=== PATIENT | male | born 1945 | race African-American/Black ===

== ENCOUNTER 2018-11-27 15:25 | Inpatient (IN) | payer OTHER ==
--- NOTE | 2018-11-27 15:41 | PDOC ---
Rapid Medical Evaluation Time Seen by Provider: 11/27/18 15:35 Medical Evaluation: Allergies Allergy/AdvReac Type Severity Reaction Status Date / Time Penicillins Allergy Intermediate Rash Verified 11/06/17 18:00 11/27/18 15:38 I have performed a brief in-person evaluation of this patient. The patient presents with a chief complaint of: swelling and pain to right lower leg Pertinent physical exam findings: hot / red/ swollen left lower extremity I have ordered the following: US- right lower leg The patient will proceed to the ED for further evaluation
[2018-11-27 18:20] LABS: BASO % 0.3 % (0-2.0); EOS % 0.1 % (0-4.5); HEMATOCRIT 34.6 % (35.4-49); HEMOGLOBIN 11.6 GM/dL (11.7-16.9); LYMPH % 13.3 % (8-40); MCH 30.7 pg (25.7-33.7); MCHC 33.6 g/dl (32.0-35.9); MEAN CELL VOLUME 91.4 fl (80-96); MEAN PLT VOLUME 10.2 fl (7.5-11.1); MONO % 6.5 % (3.8-10.2); NEUT % 79.8 % (42.8-82.8); PLATELET COUNT 179 K/MM3 (134-434); RBC 3.79 M/mm3 (4.00-5.60); WHITE BLOOD COUNT 10.4 K/mm3 (4.0-10.0)
[2018-11-27 18:42] LABS: ALBUMIN 3.5 g/dl (3.4-5.0); BILIRUBIN,TOTAL 0.5 mg/dL (0.2-1); BLOOD UREA NITROGEN 38.2 mg/dL (7-18); CALCIUM 8.5 mg/dL (8.5-10.1); CREATININE 1.8 mg/dL (0.55-1.3); POTASSIUM 3.4 mmol/L (3.5-5.1); TOT PROT 8.1 g/dl (6.4-8.2)
[2018-11-27 19:13] LABS: INR 1.1 (0.83-1.09)
--- NOTE | 2018-11-27 19:20 | PDOC ---
History of Present Illness - General Chief Complaint: Redness To Affected Area Stated Complaint: POSSIBLE BLOOD CLOT ON LT LEG Time Seen by Provider: 11/27/18 15:35 Past History - Past Medical History Allergies/Adverse Reactions: Allergies Allergy/AdvReac Type Severity Reaction Status Date / Time Penicillins Allergy Intermediate Rash Verified 11/27/18 15:42 Home Medications: Ambulatory Orders Baclofen 10 mg PO TID 11/27/18 Carvedilol 25 mg PO BID 11/27/18 Finasteride 5 mg PO DAILY 11/27/18 Gabapentin 100 mg PO BID 11/27/18 Linaclotide [Linzess] 290 mcg PO DAILY 11/27/18 Losartan/Hydrochlorothiazide [Losartan-Hctz 50-12.5 mg Tab] 1 each PO DAILY 10/10 Varenicline Tartrate [Chantix] 1 mg PO DAILY 11/27/18 COPD: No Disorders: Yes (ENLARGED PROSTATE) HTN: Yes Other medical history: DVT x 5 years ago - Surgical History Neurologic Surgery: Yes (SPINAL SURGERY 2013) - Suicide/Smoking/Psychosocial Hx Smoking History: Unknown if ever smoked Have you smoked in the past 12 months: No Number of Cigarettes Smoked Daily: 10 Information on smoking cessation initiated: No 'Breaking Loose' booklet given: 11/06/17 Hx Alcohol Use: No Drug/Substance Use Hx: No Substance Use Type: Alcohol Hx Substance Use Treatment: No *Physical Exam - Vital Signs Last Vital Signs Temp Pulse Resp BP Pulse Ox 98.3 F 78 16 131/70 95 11/27/18 15:39 11/27/18 18:52 11/27/18 15:39 11/27/18 18:52 11/27/18 18:52 ED Treatment Course - LABORATORY CBC & Chemistry Diagram: 11/27/18 18:10 11/27/18 18:10 - ADDITIONAL ORDERS Additional order review: Laboratory Results 11/27/18 11/27/18 18:10 18:10 PT with INR 13.00 INR 1.10 H Sodium 137 Potassium 3.4 L Chloride 96 L Carbon Dioxide 32 Anion Gap 9 BUN 38.2 H Creatinine 1.8 H Est GFR (CKD-EPI)AfAm 42.33 Est GFR (CKD-EPI)NonAf 36.52 Random Glucose 104 Calcium 8.5 Total Bilirubin 0.5 AST 40 H ALT 23 Alkaline Phosphatase 69 Total Protein 8.1 Albumin 3.5 11/27/18 18:10 RBC 3.79 L MCV 91.4 MCHC 33.6 RDW 13.0 MPV 10.2 Neutrophils % 79.8 Lymphocytes % 13.3 Monocytes % 6.5 Eosinophils % 0.1 Basophils % 0.3 Medical Decision Making - Medical Decision Making 73yo M with borderline HTN, spinal fusion after which he sustained a LLE DVT sent by his GI specialist for evaluation of red/swollen LLE. Patient states the redness and swelling started yesterday. Denies knowing of any inciting event. No trauma or injury. Not currently on anticoagulation. Denies any history of immunosuppression. No recent antibiotic use. Has had less po intake per instructions for routine colonoscopy that was scheduled for today, however, the GI specialist did not want to proceed with the procedure given the LLE swelling. No fevers, chills, chest pain, or shortness of breath. PCP: Dr. Kirkland GI: Dr. Rowland ROS: Constitutional: no fever, no chills HEENT: no throat pain, no dysphagia Cardiovascular: no chest pain, no palpitations Respiratory: no cough, no shortness of breath Gastrointestinal: no abdominal pain, no nausea Genitourinary: no dysuria, no hematuria Musculoskeletal: no myalgia, no arthralgia Skin: +LLE swelling, no RLE swelling Neurologic: no headache, no weakness PE: General: Awake, alert, and fully oriented, in no acute distress Head: No signs of trauma Eyes: EOMI, sclera anicteric ENT: Moist mucus membranes Neck: Normal ROM, supple Lungs: Lungs clear, Normal breath sounds Cardio: Regular rhythm, S1 and S2 present Abdomen: Soft, nontender Extremities: Normal range of motion, Distal pulses present LLE: erythema, induration extending up to the knee; intact sensation and strength RLE: without acute abnormality SKIN: Warm, Dry, normal turgor Neurologic: Cranial nerves II through XII grossly intact. Normal speech ED Courses/MDM: DDX including but not limited to DVT, cellulitis, lymphedema, CHF CBC WBC 10.4 K/mm3 (4.0-10.0) H 11/27/18 18:10 RBC 3.79 M/mm3 (4.00-5.60) L 11/27/18 18:10 Hgb 11.6 GM/dL (11.7-16.9) L 11/27/18 18:10 Hct 34.6 % (35.4-49) L 11/27/18 18:10 MCV 91.4 fl (80-96) 11/27/18 18:10 MCH 30.7 pg (25.7-33.7) 11/27/18 18:10 MCHC 33.6 g/dl (32.0-35.9) 11/27/18 18:10 RDW 13.0 % (11.9-15.9) 11/27/18 18:10 Plt Count 179 K/MM3 (134-434) 11/27/18 18:10 MPV 10.2 fl (7.5-11.1) 11/27/18 18:10 Absolute Neuts (auto) 8.3 K/mm3 (1.5-8.0) H 11/27/18 18:10 Neutrophils % 79.8 % (42.8-82.8) 11/27/18 18:10 Lymphocytes % 13.3 % (8-40) 11/27/18 18:10 Monocytes % 6.5 % (3.8-10.2) 11/27/18 18:10 Eosinophils % 0.1 % (0-4.5) 11/27/18 18:10 Basophils % 0.3 % (0-2.0) 11/27/18 18:10 Nucleated RBC % 0 % (0-0) 11/27/18 18:10 Mild leukocytosis CMP Sodium 137 mmol/L (136-145) 11/27/18 18:10 Potassium 3.4 mmol/L (3.5-5.1) L 11/27/18 18:10 Chloride 96 mmol/L (98-107) L 11/27/18 18:10 Carbon Dioxide 32 mmol/L (21-32) 11/27/18 18:10 Anion Gap 9 MMOL/L (8-16) 11/27/18 18:10 BUN 38.2 mg/dL (7-18) H 11/27/18 18:10 Creatinine 1.8 mg/dL (0.55-1.3) H 11/27/18 18:10 Est GFR (CKD-EPI)AfAm 42.33 11/27/18 18:10 Est GFR (CKD-EPI)NonAf 36.52 11/27/18 18:10 Random Glucose 104 mg/dL (74-106) 11/27/18 18:10 Calcium 8.5 mg/dL (8.5-10.1) 11/27/18 18:10 Total Bilirubin 0.5 mg/dL (0.2-1) 11/27/18 18:10 AST 40 U/L (15-37) H 11/27/18 18:10 ALT 23 U/L (13-61) 11/27/18 18:10 Alkaline Phosphatase 69 U/L (45-117) 11/27/18 18:10 Total Protein 8.1 g/dl (6.4-8.2) 11/27/18 18:10 Albumin 3.5 g/dl (3.4-5.0) 11/27/18 18:10 Elevated BUN and Cr, likely due to lessened po intake as patient was instructed for bowel preparation in anticipation for routine colonoscpy No baseline Cr here; patient denies history of kidney disease. We will hydrate with 1L NS LLE US is negative for DVT, per radiology report: "Grayscale, pulsed Doppler and color Doppler interrogation of the left lower extremity deep venous system was performed. The left common femoral vein, superficial femoral vein, popliteal and posterior tibial vein were identified with a normal phasic wave form, adequate compressibility and adequate response to augmentation. Visualized portion of the greater saphenous and deep femoral vein are patent. No Stiles's cyst is identified within the popliteal fossa Note is made of left leg edema Impression: There is no evidence of deep venous thrombosis in the left lower extremity. Note is made of left leg edema " Vanc, Clinda ordered as patient is penicillin allergic We will admit to the hospital as patient has significant cellulitis of the LLE developed over about 24 hours 11/27/18 20:37 EKG: rate 79, Qtc 442, NSR 11/27/18 21:05 Discussed case with ARCENIO Kumar who accepted patient for admission under Dr. Nash 11/27/18 22:26 CXR: "A frontal view of the chest was obtained. Compared to prior chest x-ray dated the The cardiac silhouette is within normal limits in size. The lung is clear. Mediastinum and visualized osseous structures appear intact . Impression: Unremarkable examination. No acute lung disease is present " *DC/Admit/Observation/Transfer Diagnosis at time of Disposition: Cellulitis Qualifiers: Site of cellulitis: extremity Site of cellulitis of extremity: lower extremity Laterality: left Qualified Code(s): L03.116 - Cellulitis of left lower limb - Discharge Dispostion Condition at time of disposition: Guarded Decision to Admit order: Yes - Referrals - Patient Instructions - Post Discharge Activity
[2018-11-27] MEDS ORDERED: SODIUM CHLORIDE 1,000 ML IV STA (19:34)
[2018-11-27] MEDS ORDERED: VANCOMYCIN 1,000 MG in DEXTROSE 5%-WATER - 250 ML IVPB ONE (20:40)
[2018-11-27] MEDS ORDERED: CLINDAMYCIN 600MG PREMIX IVPB 600 MG/50 ML BAG IVPB ONE ×2 (20:41→21:32)
[2018-11-27] MEDS ORDERED: VANCOMYCIN 1 GRAM (PRE-DOCKED) 1,000 MG/250 ML BAG IVPB ONE (21:32)
--- NOTE | 2018-11-27 22:27 | PDOC ---
Documentation entered by Lew Coleman SCRIBE, acting as scribe for Sridevi Greenfield MD. Sridevi Greenfield MD: This documentation has been prepared by the [place] lock Xhesika, SCRIBE, under my direction and personally reviewed by me in its entirety. I confirm that the documentation accurately reflects all work, treatment, procedures, and medical decision making performed by me. Attending Attestation - Resident Resident Name: Germán Smithth - ED Attending Attestation I have performed the following: I have examined & evaluated the patient, The case was reviewed & discussed with the resident, I agree w/resident's findings & plan, Exceptions are as noted - HPI HPI: 11/27/18 20:43 The patient is a 73 year old male with a significant PMH of spinal fusion, hypertension and BPH who presents to the emergency department for L lower leg swelling and redness. Patient was referred by Dr. Rowland to r/o DVT because patient has an upcoming colonoscopy. The patient denies chest pain, shortness of breath, headache and dizziness. Denies fever, chills, cough, nausea, vomiting, diarrhea and constipation. Denies dysuria, frequency, urgency and hematuria. Allergies: NKDA PCP: Jean Pierre White - Physicial Exam PE: 11/27/18 20:44 GENERAL: Awake, alert, and fully oriented, in no acute distress HEAD: No signs of trauma EYES: PERRLA, EOMI, sclera anicteric, conjunctiva clear ENT: Auricles normal inspection, hearing grossly normal, nares patent, oropharynx clear without exudates. Moist mucosa NECK: Normal ROM, supple, no lymphadenopathy, JVD, or masses LUNGS: Breath sounds equal, clear to auscultation bilaterally. No wheezes, and no crackles HEART: Regular rate and rhythm, normal S1 and S2, no murmurs, rubs or gallops ABDOMEN: Soft, nontender, normoactive bowel sounds. No guarding, no rebound. No masses EXTREMITIES: (+) L lower leg swelling and redness from toes streaking up upper knee. NEUROLOGICAL: Cranial nerves II through XII grossly intact. SKIN: Warm, Dry, normal turgor, no rashes or lesions noted. - Medical Decision Making 11/27/18 22:26 pt given IV antibiotics and admitted to med/surg for cellulitis
[2018-11-27] MEDS ORDERED: POTASSIUM CHLORIDE TABS 20 MEQ TABLET.ER (FP) PO ONE (22:31)
--- NOTE | 2018-11-27 22:48 | HP ---
Admitting History and Physical - Primary Care Physician PCP: Jean Pierre Kirkland MD - Admission Chief Complaint: LLE Swelling, Erythema History of Present Illness: This is a 73 y/o man with a Borderline DM, HTN, DVT secondary to surgery. Who presents to the ED sent in from Dr hunter's office for LLE redness and swelling r/o DVT. Patient was scheduled to have a colonoscopy which was cancelled due to the LLE swelling. History Source: Patient Limitations to Obtaining History: No Limitations - Smoking History Smoking history: Unknown if ever smoked Have you smoked in the past 12 months: No Aproximately how many cigarettes per day: 10 - Alcohol/Substance Use Hx Alcohol Use: No Home Medications - Allergies Allergies/Adverse Reactions: Allergies Allergy/AdvReac Type Severity Reaction Status Date / Time Penicillins Allergy Intermediate Rash Verified 11/27/18 15:42 - Home Medications Home Medications: Ambulatory Orders Baclofen 10 mg PO TID 11/27/18 Carvedilol 25 mg PO BID 11/27/18 Finasteride 5 mg PO DAILY 11/27/18 Gabapentin 100 mg PO BID 11/27/18 Linaclotide [Linzess] 290 mcg PO DAILY 11/27/18 Losartan/Hydrochlorothiazide [Losartan-Hctz 50-12.5 mg Tab] 1 each PO DAILY 10/10 Varenicline Tartrate [Chantix] 1 mg PO DAILY 11/27/18 Physical Examination Vital Signs: Vital Signs Temperature 98.3 F 11/27/18 15:39 Pulse Rate 78 11/27/18 18:52 Respiratory Rate 16 11/27/18 15:39 Blood Pressure 131/70 11/27/18 18:52 O2 Sat by Pulse Oximetry (%) 95 11/27/18 18:52 Labs: CBC, BMP 11/27/18 18:10 11/27/18 18:10
[2018-11-28] MEDS ORDERED: POTASSIUM CHLORIDE TABS 20 MEQ TABLET.ER (FP) PO ONE (00:57)
[2018-11-28] MEDS ORDERED: CARVEDILOL 12.5 MG TABLET (FP) ONE (00:57)
[2018-11-28] MEDS ORDERED: GABAPENTIN 100 MG CAPSULE (FP) ONE (00:58)
[2018-11-28] MEDS: CARVEDILOL 25 MG TABLET (FP) PO SCH ×3 (01:17→21:45)
[2018-11-28] MEDS: GABAPENTIN 100 MG CAPSULE (FP) PO SCH ×3 (01:17→21:45)
[2018-11-28 03:45] VITALS: BMI 31.5
[2018-11-28 07:39] LABS: BASO % 0.2 % (0-2.0); EOS % 0.4 % (0-4.5); HEMATOCRIT 31.3 % (35.4-49); HEMOGLOBIN 10.8 GM/dL (11.7-16.9); LYMPH % 16.9 % (8-40); MCH 31.1 pg (25.7-33.7); MCHC 34.5 g/dl (32.0-35.9); MEAN CELL VOLUME 90.2 fl (80-96); MEAN PLT VOLUME 10.5 fl (7.5-11.1); MONO % 6.8 % (3.8-10.2); NEUT % 75.7 % (42.8-82.8); PLATELET COUNT 179 K/MM3 (134-434); RBC 3.48 M/mm3 (4.00-5.60); RDW 13.3 % (11.9-15.9)
[2018-11-28 07:59] LABS: BLOOD UREA NITROGEN 35.4 mg/dL (7-18); CALCIUM 8.2 mg/dL (8.5-10.1); CREATININE 1.5 mg/dL (0.55-1.3); POTASSIUM 3.3 mmol/L (3.5-5.1)
[2018-11-28] MEDS ORDERED: CLINDAMYCIN 600MG PREMIX IVPB 600 MG/50 ML BAG IVPB SCH (10:00)
[2018-11-28] MEDS: HYDROCHLOROTHIAZIDE 12.5 MG CAPSULE (FP) PO SCH (10:26)
[2018-11-28] MEDS: HEPARIN NA (PORCINE) 5,000 UNITS/ML 1ML VIAL SQ SCH ×2 (10:26→21:45)
[2018-11-28] MEDS: FINASTERIDE 5 MG TABLET (FP) PO SCH (10:26)
--- NOTE | 2018-11-28 11:51 | CONSULT ---
Consult Consult Specialty:: Vascular Surgery - History of Present Illness History of Present Illness: 73 year old man with a prior history of left leg DVT in 2014 presents with several weeks of worsening swelling of the left calf. He denies pain or fever. He has had no recent trauma or long car trips. - History Source History Provided By: Patient Limitations to Obtaining History: No Limitations - Past Medical History Cardio/Vascular: Yes: HTN - Past Surgical History Past Surgical History: Yes: Laminectomy (Cervical) - Alcohol/Substance Use Hx Alcohol Use: No - Smoking History Smoking history: Smoker current status UNK (on Chantix) Have you smoked in the past 12 months: No Aproximately how many cigarettes per day: 10 Home Medications - Allergies Allergies/Adverse Reactions: Allergies Allergy/AdvReac Type Severity Reaction Status Date / Time Penicillins Allergy Intermediate Rash Verified 11/27/18 15:42 - Home Medications Home Medications: Ambulatory Orders Baclofen 10 mg PO TID 11/27/18 Carvedilol 25 mg PO BID 11/27/18 Finasteride 5 mg PO DAILY 11/27/18 Gabapentin 100 mg PO BID 11/27/18 Linaclotide [Linzess] 290 mcg PO DAILY 11/27/18 Losartan/Hydrochlorothiazide [Losartan-Hctz 50-12.5 mg Tab] 1 each PO DAILY 10/10 Varenicline Tartrate [Chantix] 1 mg PO DAILY 11/27/18 Physical Exam Vital Signs: Vital Signs Temperature 99.6 F 11/28/18 05:44 Pulse Rate 79 11/28/18 05:44 Respiratory Rate 18 11/28/18 05:44 Blood Pressure 120/63 11/28/18 05:44 O2 Sat by Pulse Oximetry (%) 95 11/28/18 03:19 Constitutional: Yes: No Distress, Calm Gastrointestinal: Yes: Soft Edema: Yes Edema: LLE: 3+ (non-pitting) Integumentary: Yes: Erythema (left calf extending medially to upper calf. Small abrasion on lateral calf.) Labs: CBC, BMP 11/28/18 06:28 11/28/18 06:28 Imaging - Results Ultrasound: Image Reviewed (Patent left CFV, FV, PV with continuous flow, not phasic.) Assessment/Plan Severe edema left calf with local erythema but no evidence for infection ( normal temp, WBC). The Duplex shows resolution of the previously seen DVT left femoral and popliteal veins. The possibility of a compression or occlusion of the left iliac vein needs to be investigated as a cause of the current findings. Rec: elevate leg in bed. MRV to evaluate iliac veins for DVT or compression (May-Thurner Syndrome.
--- NOTE | 2018-11-28 11:55 | PN ---
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
[2018-11-28] MEDS: VARENICLINE TARTRATE 1 MG TAB PO SCH (12:15)
[2018-11-28] MEDS: BACITRACIN 15 GM TUBE TOPICAL OINTMENT TP SCH (12:21)
[2018-11-28] MEDS: CEFAZOLIN 2 GM/D5W 2 GM/50 ML ML IVPB SCH ×2 (12:21→17:32)
--- NOTE | 2018-11-28 12:46 | CONS ---
DATE OF CONSULTATION: DATE OF DICTATION: 11/28/2018 REQUESTED BY: Hospitalist service. This is a 73-year-old man, past medical history of hypertension. He went to his psychology tech yesterday to have colonoscopy and was noted to have swelling of his left lower extremity and sent to the emergency room. They noted his leg became swollen for about a week, followed by several days of erythema. He was scheduled to have colonoscopy, which was canceled due to this. He denies any fevers or chills. He otherwise feels well. He reports he thinks he had a DVT in the left lower extremity in 2014. He had a duplex done in the emergency room that was negative. PAST MEDICAL HISTORY: Notable for hypertension, history of DVT secondary to surgery. PAST SURGICAL HISTORY: Notable for spinal fusion 4 years ago. PRIMARY MEDICAL DOCTOR: SOCIAL HISTORY: There is no history of any substance use. He is . He lives with his . He has 1 child. He has not been working for 4 years now. 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 There is no history of any recent travel. ALLERGIES: He is allergic to PENICILLIN. As a young man he received an IM injection and developed a rash. There was no shortness of breath or anaphylaxis noted with this. MEDICATIONS: His medications at home include baclofen, carvedilol, finasteride, gabapentin, Linzess, losartan/hydrochlorothiazide, and Chantix. FAMILY HISTORY: Unremarkable. REVIEW OF SYSTEMS: He denies chest pain, abdominal pain, nausea, vomiting, diarrhea, or dysuria. PHYSICAL EXAMINATION: General: He is awake and alert. Vital Signs: Current temp is 99.6. Pulse is 79, blood pressure 120/63. Respiratory rate is 18. He is saturating 95% on room air. HEENT: He is normocephalic. His eyes are anicteric. Neck: Supple. Lungs: Clear to auscultation. Heart: Regular rate and rhythm. Abdomen: Distended. He has an anterior hernia along the midline. Extremities: Notable for disuse, erythema, and swelling of his left lower leg to below his knee. He has full range of motion of his ankle and knee joint. LABORATORY: Labs are notable for a white count of 10.4 on admission, repeat of 8. Hemoglobin 10.8. His INR is 1.1. BUN and creatinine are 35 and 1.5, with an AST of 40. Blood cultures are pending. Chest x-ray is negative. Duplex is negative for DVT, is notable for swelling of the leg. SUMMARY: This is a 73-year-old man admitted with swelling and what appears to be cellulitis of his left lower extremity. He has prior history of deep vein thrombosis to that leg. No history of any trauma. He has remote penicillin allergy history. He also is notably anemic with some renal insufficiency, unclear if this is new or old. Would suggest we treat him with cefazolin at this time while awaiting cultures. Would recommend elevation of his leg, and he is being evaluated by Vascular Surgery as well. He will require a colonoscopy as an outpatient given the anemia as well. FRANCOIS KU M.D. [id number]
[2018-11-28] MEDS ORDERED: VANCOMYCIN 1,000 MG in DEXTROSE 5%-WATER - 250 ML IVPB SCH (13:00)
--- NOTE | 2018-11-28 13:31 | EKG ---
Test Reason : Blood Pressure : / mmHG Vent. Rate : 079 BPM Atrial Rate : 079 BPM P-R Int : 162 ms QRS Dur : 094 ms QT Int : 386 ms P-R-T Axes : 068 051 032 degrees QTc Int : 442 ms NORMAL SINUS RHYTHM NORMAL ECG WHEN COMPARED WITH ECG OF 17-FEB-2010 12:07, NO SIGNIFICANT CHANGE WAS FOUND Confirmed by ERI HUYNH MD ([id number]) on 11/28/2018 1:30:35 PM Referred By: Confirmed By:ERI HUYNH MD
--- NOTE | 2018-11-28 14:14 | PN ---
Progress Note, Physician Chief Complaint: LLE swelling History of Present Illness: Previous notes and events reviewed awake and alert NAD Vascular US neg for DVT pending Pelvic MRI no leukocytosis - Current Medication List Current Medications: Active Medications Bacitracin (Bacitracin -) 1 applic TP DAILY [facility] Last Admin: 11/28/18 12:21 Dose: 1 applic Carvedilol (Coreg -) 25 mg PO BID [facility] Last Admin: 11/28/18 10:26 Dose: 25 mg Finasteride (Proscar -) 5 mg PO DAILY [facility] Last Admin: 11/28/18 10:26 Dose: 5 mg Gabapentin (Neurontin -) 100 mg PO BID [facility] Last Admin: 11/28/18 10:26 Dose: 100 mg Heparin Sodium (Porcine) (Heparin -) 5,000 unit SQ BID [facility] Last Admin: 11/28/18 10:26 Dose: 5,000 unit Hydrochlorothiazide (Hctz -) 12.5 mg PO DAILY [facility] Last Admin: 11/28/18 10:26 Dose: 12.5 mg Cefazolin Sodium/Dextrose (Ancef 2 Gm Premixed Ivpb -) 2 gm in 50 mls @ 100 mls /hr IVPB Q8H-IV [facility] Last Admin: 11/28/18 12:21 Dose: 100 mls/hr Varenicline (Chantix -) 1 mg PO DAILY [facility] Last Admin: 11/28/18 12:15 Dose: Not Given - Objective Vital Signs: Vital Signs Temperature 99.1 F 11/28/18 10:00 Pulse Rate 77 11/28/18 10:00 Respiratory Rate 18 11/28/18 10:00 Blood Pressure 114/55 L 11/28/18 10:00 O2 Sat by Pulse Oximetry (%) 96 11/28/18 09:00 Constitutional: Yes: No Distress, Calm Eyes: Yes: Conjunctiva Clear HENT: Yes: Atraumatic Cardiovascular: Yes: Regular Rate and Rhythm Respiratory: Yes: Regular, CTA Bilaterally Gastrointestinal: Yes: Normal Bowel Sounds, Soft Musculoskeletal: Yes: Muscle Weakness Extremities: Yes: Erythema (LLW), Other (Edema LLE) Edema: Yes Edema: LLE: 3+ Neurological: Yes: Alert, Oriented Psychiatric: Yes: Alert, Oriented Labs: CBC, BMP 11/28/18 06:28 11/28/18 06:28 INR, PTT INR 1.10 (0.83-1.09) H 11/27/18 18:10 - ....Imaging Ultrasound: Report Reviewed Problem List - Problems (1) Cellulitis Assessment/Plan: -ID and Vascular on board -no leukocytosis -afebrile -Cefazolin -BC pending Code(s): L03.90 - CELLULITIS, UNSPECIFIED Qualifiers: Site of cellulitis: extremity Site of cellulitis of extremity: lower extremity Laterality: left Qualified Code(s): L03.116 - Cellulitis of left lower limb (2) Left leg DVT Assessment/Plan: -Vascular on board -Vascular US neg Code(s): I82.402 - ACUTE EMBOLISM AND THOMBOS UNSP DEEP VEINS OF L LOW EXTREM (3) Edema of left lower extremity Assessment/Plan: -Vascular on board -Vascular US neg -pending MRI of Pelvis Code(s): R60.0 - LOCALIZED EDEMA Assessment/Plan see problem list dvt ppx
[2018-11-29] MEDS: CEFAZOLIN 2 GM/D5W 2 GM/50 ML ML IVPB SCH ×3 (01:02→17:25)
[2018-11-29 07:41] LABS: HEMATOCRIT 29.4 % (35.4-49); MEAN CELL VOLUME 91.2 fl (80-96); MEAN PLT VOLUME 10.5 fl (7.5-11.1); RBC 3.22 M/mm3 (4.00-5.60); RDW 13.3 % (11.9-15.9); WHITE BLOOD COUNT 5.5 K/mm3 (4.0-10.0)
[2018-11-29 07:59] LABS: PLATELET COUNT 166 K/MM3 (134-434)
[2018-11-29 08:03] LABS: ALBUMIN 2.8 g/dl (3.4-5.0); BILIRUBIN,TOTAL 0.3 mg/dL (0.2-1); BLOOD UREA NITROGEN 20.5 mg/dL (7-18); CALCIUM 8.1 mg/dL (8.5-10.1); CREATININE 1.3 mg/dL (0.55-1.3); POTASSIUM 3.3 mmol/L (3.5-5.1); TOT PROT 6.9 g/dl (6.4-8.2)
[2018-11-29] MEDS: CARVEDILOL 25 MG TABLET (FP) PO SCH ×2 (09:33→22:40)
[2018-11-29] MEDS: HYDROCHLOROTHIAZIDE 12.5 MG CAPSULE (FP) PO SCH (09:33)
[2018-11-29] MEDS: FINASTERIDE 5 MG TABLET (FP) PO SCH (09:33)
[2018-11-29] MEDS: GABAPENTIN 100 MG CAPSULE (FP) PO SCH ×2 (09:33→22:40)
[2018-11-29] MEDS: VARENICLINE TARTRATE 1 MG TAB PO SCH (09:34)
[2018-11-29] MEDS: HEPARIN NA (PORCINE) 5,000 UNITS/ML 1ML VIAL SQ SCH ×2 (09:34→22:41)
[2018-11-29] MEDS: BACITRACIN 15 GM TUBE TOPICAL OINTMENT TP SCH (09:36)
[2018-11-29] MEDS ORDERED: POTASSIUM CHLORIDE TABS 20 MEQ TABLET.ER (FP) PO ONE (10:30)
--- NOTE | 2018-11-29 10:38 | PN ---
Progress Note, Physician Chief Complaint: LLE swelling History of Present Illness: Previous notes and events reviewed awake and alert NAD Vascular US neg for DVT pending Pelvic MRI no leukocytosis - Current Medication List Current Medications: Active Medications Bacitracin (Bacitracin -) 1 applic TP DAILY [facility] Last Admin: 11/29/18 09:36 Dose: 1 applic Carvedilol (Coreg -) 25 mg PO BID [facility] Last Admin: 11/29/18 09:33 Dose: 25 mg Finasteride (Proscar -) 5 mg PO DAILY [facility] Last Admin: 11/29/18 09:33 Dose: 5 mg Gabapentin (Neurontin -) 100 mg PO BID [facility] Last Admin: 11/29/18 09:33 Dose: 100 mg Heparin Sodium (Porcine) (Heparin -) 5,000 unit SQ BID [facility] Last Admin: 11/29/18 09:34 Dose: 5,000 unit Hydrochlorothiazide (Hctz -) 12.5 mg PO DAILY [facility] Last Admin: 11/29/18 09:33 Dose: 12.5 mg Cefazolin Sodium/Dextrose (Ancef 2 Gm Premixed Ivpb -) 2 gm in 50 mls @ 100 mls /hr IVPB Q8H-IV [facility] Last Admin: 11/29/18 09:31 Dose: 100 mls/hr Varenicline (Chantix -) 1 mg PO DAILY [facility] Last Admin: 11/29/18 09:34 Dose: 1 mg - Objective Vital Signs: Vital Signs Temperature 98.8 F 11/29/18 06:00 Pulse Rate 81 11/29/18 06:00 Respiratory Rate 18 11/29/18 06:00 Blood Pressure 113/63 11/29/18 06:00 O2 Sat by Pulse Oximetry (%) 96 11/28/18 21:00 Constitutional: Yes: No Distress, Calm Eyes: Yes: Conjunctiva Clear HENT: Yes: Atraumatic Cardiovascular: Yes: Regular Rate and Rhythm Respiratory: Yes: Regular, CTA Bilaterally Gastrointestinal: Yes: Normal Bowel Sounds, Soft Extremities: Yes: Erythema (LLE) Edema: Yes Edema: LLE: 2+ Neurological: Yes: Alert, Oriented Psychiatric: Yes: Alert, Oriented Labs: CBC, BMP 11/29/18 06:24 11/29/18 06:24 INR, PTT INR 1.10 (0.83-1.09) H 11/27/18 18:10 Microbiology 11/27/18 22:55 Blood - Peripheral Venous Blood Culture - Preliminary NO GROWTH OBTAINED AFTER 24 HOURS, INCUBATION TO CONTINUE FOR 4 DAYS. 11/27/18 22:55 Blood - Peripheral Venous Blood Culture - Preliminary NO GROWTH OBTAINED AFTER 24 HOURS, INCUBATION TO CONTINUE FOR 4 DAYS. Problem List - Problems (1) Cellulitis Assessment/Plan: -ID and Vascular on board -no leukocytosis -afebrile -Cefazolin -BC neg -pelvic CT scan pending Code(s): L03.90 - CELLULITIS, UNSPECIFIED Qualifiers: Site of cellulitis: extremity Site of cellulitis of extremity: lower extremity Laterality: left Qualified Code(s): L03.116 - Cellulitis of left lower limb (2) Left leg DVT Assessment/Plan: -Vascular on board -Vascular US neg Code(s): I82.402 - ACUTE EMBOLISM AND THOMBOS UNSP DEEP VEINS OF L LOW EXTREM (3) Edema of left lower extremity Assessment/Plan: -Vascular on board -Vascular US neg -pending Pelvic CT scan Code(s): R60.0 - LOCALIZED EDEMA Assessment/Plan see problem list dvt ppx
[2018-11-29] MEDS ORDERED: PT OWN MED DRAWER 7, Y5N ONE (11:21)
--- NOTE | 2018-11-29 13:57 | PN ---
Progress Note (short form) - Note Progress Note: less swelling less edema Vital Signs Period Temp Pulse Resp BP Sys/Meraz Pulse Ox Last 24 Hr 98.2 F-98.9 F 76-85 18-20 113-156/63-78 96 cor-rrr lungs clear ext less erythema, less edema CBC, BMP 11/29/18 06:24 11/29/18 06:24 Microbiology 11/27/18 22:55 Blood - Peripheral Venous Blood Culture - Preliminary NO GROWTH OBTAINED AFTER 24 HOURS, INCUBATION TO CONTINUE FOR 4 DAYS. 11/27/18 22:55 Blood - Peripheral Venous Blood Culture - Preliminary NO GROWTH OBTAINED AFTER 24 HOURS, INCUBATION TO CONTINUE FOR 4 DAYS. cellulitis lLE- continue cefazolin leg elevation vascular f/u bacitracin to abrasion LLE anemia CKD
[2018-11-30] MEDS: CEFAZOLIN 2 GM/D5W 2 GM/50 ML ML IVPB SCH ×2 (01:00→10:04)
[2018-11-30 07:01] LABS: HEMATOCRIT 29.6 % (35.4-49); MCH 30.9 pg (25.7-33.7); MCHC 33.8 g/dl (32.0-35.9); MEAN CELL VOLUME 91.3 fl (80-96); MEAN PLT VOLUME 9.9 fl (7.5-11.1); PLATELET COUNT 198 K/MM3 (134-434); RBC 3.24 M/mm3 (4.00-5.60); RDW 13.3 % (11.9-15.9); WHITE BLOOD COUNT 6.5 K/mm3 (4.0-10.0)
[2018-11-30 07:29] LABS: ALBUMIN 2.9 g/dl (3.4-5.0); BILIRUBIN,TOTAL 0.3 mg/dL (0.2-1); CALCIUM 8.2 mg/dL (8.5-10.1); CREATININE 1.2 mg/dL (0.55-1.3); POTASSIUM 4.1 mmol/L (3.5-5.1); TOT PROT 7.2 g/dl (6.4-8.2)
--- NOTE | 2018-11-30 08:18 | PN ---
Progress Note (short form) - Note Progress Note: Feels better, afebrile Left calf edema, softer. Less erythema WBC normal CT scan did not suggest any iliac clot or compression.(no official reading). Imp: Resolving cellulitis, possibly lymphedema Rec: Continue elevation Will need support hose for daily use I will see in office for further evaluation.
[2018-11-30] MEDS: HYDROCHLOROTHIAZIDE 12.5 MG CAPSULE (FP) PO SCH (10:05)
[2018-11-30] MEDS: GABAPENTIN 100 MG CAPSULE (FP) PO SCH (10:05)
[2018-11-30] MEDS: BACITRACIN 15 GM TUBE TOPICAL OINTMENT TP SCH (10:05)
[2018-11-30] MEDS: CARVEDILOL 25 MG TABLET (FP) PO SCH (10:05)
[2018-11-30] MEDS: HEPARIN NA (PORCINE) 5,000 UNITS/ML 1ML VIAL SQ SCH (10:05)
[2018-11-30] MEDS: FINASTERIDE 5 MG TABLET (FP) PO SCH (10:05)
[2018-11-30] MEDS: VARENICLINE TARTRATE 1 MG TAB PO SCH (10:10)
--- NOTE | 2018-11-30 11:51 | PN ---
Progress Note (short form) - Note Progress Note: improving wants to go home less swelling less edema Vital Signs Period Temp Pulse Resp BP Sys/Meraz Pulse Ox Last 24 Hr 98.5 F-99.4 F 79-97 18-20 130-147/62-90 96 cor-rrr lungs clear abd soft ext leg is minimally warm, erythema and edema about 50% better CBC, BMP 11/30/18 06:00 11/30/18 06:00 Microbiology 11/27/18 22:55 Blood - Peripheral Venous Blood Culture - Preliminary NO GROWTH OBTAINED AFTER 48 HOURS, INCUBATION TO CONTINUE FOR 3 DAYS. 11/27/18 22:55 Blood - Peripheral Venous Blood Culture - Preliminary NO GROWTH OBTAINED AFTER 48 HOURS, INCUBATION TO CONTINUE FOR 3 DAYS. cellulitis lLE-day#3 antibiotics will switch to keflex 500 tid for another 7 days should f/u with his PCP next week leg elevation vascular f/u bacitracin to abrasion LLE anemia CKD
--- NOTE | 2018-11-30 11:56 | DS ---
Physical Examination Vital Signs: Vital Signs Temperature 98.7 F 11/30/18 06:00 Pulse Rate 87 11/30/18 06:00 Respiratory Rate 18 11/30/18 06:00 Blood Pressure 130/62 11/30/18 06:00 O2 Sat by Pulse Oximetry (%) 96 11/29/18 21:00 Constitutional: Yes: Calm Cardiovascular: Yes: Regular Rate and Rhythm, S1, S2 Respiratory: Yes: CTA Bilaterally Gastrointestinal: Yes: Normal Bowel Sounds, Soft Extremities: Yes: Other (left leg swelling , decrease erythema per patient) Edema: Yes Neurological: Yes: Alert, Oriented Labs: CBC, BMP 11/30/18 06:00 11/30/18 06:00 Discharge Summary Reason For Visit: CELLULITIS Current Active Problems Cellulitis (Acute) Edema of left lower extremity (Acute) Other Procedures: pelvic ct scan did not show any iliac clot of compression Hospital Course: This is a 73 y/o man with a Borderline DM, HTN, DVT secondary to surgery. Who presents to the ED sent in from Dr hunter's office for LLE redness and swelling r/o DVT. Patient was scheduled to have a colonoscopy which was cancelled due to the LLE swelling. seen by ID on [facility] cellultis getting better no dvt Condition: Guarded - Instructions Diet, Activity, Other Instructions: take antibiotic three times a day for 7 days Referrals: Jean Pierre Kirkland MD, MD [Primary Care Provider] - 1 Week Mickey Julien [Non Staff, Medical] - William Shore MD [Staff Physician] - 1 Week (for leg swelling) Disposition: HOME - Home Medications Comprehensive Discharge Medication List: Ambulatory Orders Baclofen 10 mg PO TID 11/27/18 Carvedilol 25 mg PO BID 11/27/18 Finasteride 5 mg PO DAILY 11/27/18 Gabapentin 100 mg PO BID 11/27/18 Linaclotide [Linzess] 290 mcg PO DAILY 11/27/18 Losartan/Hydrochlorothiazide [Losartan-Hctz 50-12.5 mg Tab] 1 each PO DAILY 10/10 Varenicline Tartrate [Chantix] 1 mg PO DAILY 11/27/18
[2018-11-30 12:39] VITALS: BP 142/84; PULSE 78; TEMP 98.8
== END 2018-11-30 13:19 | disposition home or self-care (01) | DRG 603 ==
LOC: JER 15:25 → JERBED 22:27 → J7W 11-28 02:59
PROVIDERS: ADMIT Family Medicine; ATTEND Family Medicine
DX: L03.116 Cellulitis of left lower limb (principal); E11.9 Type 2 diabetes mellitus without complications; I10 Essential (primary) hypertension; D64.9 Anemia, unspecified; N18.9 Chronic kidney disease, unspecified
CPT/HCPCS: 36415; 71045-TC-FY; 72193-TC; 80048; 80053; 85025; 85027; 85610; 87040; 93005; 93010; 93971-TC; 99284-25; J1644; J7030

== ENCOUNTER 2019-01-22 14:39 | Emergency (ER) | payer OTHER ==
--- NOTE | 2019-01-22 14:47 | PDOC ---
Rapid Medical Evaluation Time Seen by Provider: 01/22/19 14:45 Medical Evaluation: Allergies Allergy/AdvReac Type Severity Reaction Status Date / Time Penicillins Allergy Intermediate Rash Verified 11/27/18 15:42 01/22/19 14:46 CC: "My BP is high." Non-compliant with meds due to diuretic effects. PE: BP-177/90. No focal findings. Orders: home meds Patient to proceed to ER for evaluation. Discharge Disposition - Diagnosis HTN (hypertension) - Referrals - Patient Instructions - Post Discharge Activity
[2019-01-22 14:56] VITALS: BMI 31.9
--- NOTE | 2019-01-22 15:16 | PDOC ---
History of Present Illness - General Chief Complaint: Blood Pressure Problem Stated Complaint: HIGH BLOOD PRESSURE Time Seen by Provider: 01/22/19 14:45 History Source: Patient, Spouse - History of Present Illness Timing/Duration: other (today) Past History - Past Medical History Allergies/Adverse Reactions: Allergies Allergy/AdvReac Type Severity Reaction Status Date / Time Penicillins Allergy Intermediate Rash Verified 01/22/19 14:56 Home Medications: Ambulatory Orders Baclofen 10 mg PO TID 11/27/18 Carvedilol 25 mg PO BID 11/27/18 Finasteride 5 mg PO DAILY 11/27/18 Gabapentin 100 mg PO BID 11/27/18 Linaclotide [Linzess] 290 mcg PO DAILY 11/27/18 Varenicline Tartrate [Chantix -] 1 mg PO DAILY 11/27/18 Bacitracin - [Bacitracin Topical Ointment -] 1 applic TP DAILY #1 tube 11/30/18 Cephalexin Monohydrate [Keflex -] 500 mg PO Q8H #20 capsule 11/30/18 Hydrochlorothiazide [Hctz -] 12.5 mg PO DAILY #30 cap 11/30/18 Anemia: No Asthma: No Cancer: No Cardiac Disorders: Yes (HTN) CVA: No COPD: No CHF: No Dementia: No Diabetes: No (borderline DM) GI Disorders: No Disorders: Yes (ENLARGED PROSTATE) HTN: Yes Hypercholesterolemia: No Seizures: No Thyroid Disease: No - Surgical History Abdominal Surgery: No Appendectomy: No Cardiac Surgery: No Cholecystectomy: No Lung Surgery: No Neurologic Surgery: Yes (SPINAL SURGERY 2013) Orthopedic Surgery: No - Psycho Social/Smoking Cessation Hx Smoking History: Unknown if ever smoked Have you smoked in the past 12 months: No Number of Cigarettes Smoked Daily: 10 Information on smoking cessation initiated: No 'Breaking Loose' booklet given: 11/06/17 Hx Alcohol Use: No Drug/Substance Use Hx: No Substance Use Type: Alcohol Hx Substance Use Treatment: No Review of Systems - Review of Systems Constitutional: No: Chills, Fever Respiratory: No: Shortness of Breath Cardiac (ROS): No: Chest Pain, Lightheadedness, Palpitations, Syncope ABD/GI: Yes: Nausea, Vomiting Neurological: No: Headache, Numbness, Tingling, Weakness, Dizziness *Physical Exam - Vital Signs Last Vital Signs Temp Pulse Resp BP Pulse Ox 97.4 F L 78 16 173/90 H 100 01/22/19 14:40 01/22/19 14:40 01/22/19 14:40 01/22/19 14:40 01/22/19 14:40 - Physical Exam General Appearance: Yes: Appropriately Dressed. No: Apparent Distress HEENT: positive: Normal Voice Neck: positive: Supple Respiratory/Chest: positive: Lungs Clear, Normal Breath Sounds. negative: Respiratory Distress Cardiovascular: positive: Regular Rate, S1, S2 Gastrointestinal/Abdominal: positive: Soft. negative: Tender, Pulsatile Mass Extremity: positive: Normal Inspection Integumentary: positive: Dry, Warm Neurologic: positive: Fully Oriented, Alert, Normal Mood/Affect, Motor Strength 08/26 Medical Decision Making - Medical Decision Making 01/22/19 15:17 73 yo M, borderline DM, DVT remotely, not on blood thinners, HTN, ambulates w/ cane for "stiff" left leg, here for evaluation for elevated BP at home. States BP was 220/110 today. Pt denies MARIE, dizziness, visual changes, n,v focal wellness, CP or SOB. Pt admits that he is non-compliant w/ his BP meds. States he was started on carvedilol and losartan by his primary doctor, Dr. Kirkland. Was also started on furosemide by Dr. Shore of vascular on a follow up visit after pt was admitted for LE cellulitis 11/2018. Patient states he stopped taking furosemide recently because he was urinating too much. Also discontinued his losartan for unclear reasons. Patient states since he's been in the ED, he has since taken a dose of both his losartan and his furosemide. Took carvedilol this am See exam Elevated BP Non-compliant w/ meds Asymptomatic from BP standpoint Has since taken missed doses of BP meds in ED BP 173/19 here, 164/85 on rpt, well radha w/ unremarkable exam otherwise Will dc to resume home meds Pt to f/u with Dr Kirkland in am Reasons to return d/w pt and Discharge - Discharge Information Problems reviewed: Yes Clinical Impression/Diagnosis: HTN (hypertension) Qualifiers: Hypertension type: unspecified Qualified Code(s): I10 - Essential (primary) hypertension Disposition: HOME - Follow up/Referral - Patient Discharge Instructions Patient Printed Discharge Instructions: DI for High Blood Pressure Additional Instructions: Please continue your losartan and carvedilol for your blood pressure Please follow up with your PMD tomorrow Return to ER for worsening of symptoms as discussed today - Post Discharge Activity
[2019-01-22 15:35] VITALS: BP 164/85; PULSE 85; TEMP 97.9
== END 2019-01-22 15:35 | disposition home or self-care (01) ==
LOC: JER 14:39
DX: I10 Essential (primary) hypertension (principal); E11.9 Type 2 diabetes mellitus without complications; Z91.14 Patient's other noncompliance with medication regimen; Z86.718 Personal history of other venous thrombosis and embolism; Z99.89 Dependence on other enabling machines and devices
CPT/HCPCS: 99281-25

== ENCOUNTER 2019-05-07 21:48 | Emergency (ER) | payer OTHER ==
[2019-05-07 22:36] VITALS: BP 121/72; PULSE 80; TEMP 97.3; BMI 31.9
--- NOTE | 2019-05-08 01:19 | PDOC ---
History of Present Illness - General Chief Complaint: Wound Stated Complaint: R LEG BLEEDING Time Seen by Provider: 05/08/19 00:26 - History of Present Illness Initial Comments: Marquis Holm is a 73yo man with a PMH of HTN, provoked DVT (following surgery ), DM who presented to the ED today with a bleeding wound on his right leg. He reports that he has had recurrent celliulits since summer. He was seen by his PMD yesterday for redness and warmth to his RLE and started on Keflex, which he started today. He also reports a small open wound to the posterior leg, and he has been applying neosporin to the wound for several months. He has not had any problems with the wound, significant drainage, increase in size, or pain. Tonight, he noted that the wound was bleeding. He was unable to put pressure on the wound due to pain when pressing on it, so presented to the ED to control the bleeding. Past History - Past Medical History Allergies/Adverse Reactions: Allergies Allergy/AdvReac Type Severity Reaction Status Date / Time Penicillins Allergy Intermediate Rash Verified 05/07/19 22:36 Home Medications: Ambulatory Orders Baclofen 10 mg PO TID 11/27/18 Carvedilol 25 mg PO BID 11/27/18 Finasteride 5 mg PO DAILY 11/27/18 Gabapentin 100 mg PO BID 11/27/18 Linaclotide [Linzess] 290 mcg PO DAILY 11/27/18 Varenicline Tartrate [Chantix -] 1 mg PO DAILY 11/27/18 Bacitracin - [Bacitracin Topical Ointment -] 1 applic TP DAILY #1 tube 11/30/18 Hydrochlorothiazide [Hctz -] 12.5 mg PO DAILY #30 cap 11/30/18 Anemia: No Asthma: No Cancer: No Cardiac Disorders: Yes CVA: No COPD: No CHF: No Dementia: No Diabetes: No (borderline DM) GI Disorders: No Disorders: Yes (ENLARGED PROSTATE) HTN: Yes Hypercholesterolemia: No Seizures: No Thyroid Disease: No Other medical history: neuropathy/ - Surgical History Abdominal Surgery: No Appendectomy: No Cardiac Surgery: No Cholecystectomy: No Lung Surgery: No Neurologic Surgery: Yes (SPINAL SURGERY 2013) Orthopedic Surgery: No - Psycho Social/Smoking Cessation Hx Smoking History: Former smoker Have you smoked in the past 12 months: No Number of Cigarettes Smoked Daily: 10 Information on smoking cessation initiated: No 'Breaking Loose' booklet given: 11/06/17 Hx Alcohol Use: No Drug/Substance Use Hx: No Substance Use Type: Alcohol Hx Substance Use Treatment: No Review of Systems - Review of Systems Comments:: General: No fevers, no chills, no weight or appetite change, no malaise HEENT: No changes in vision, no changes in hearing, no congestion, no sore throat CV: No chest pain, no palpitations, no LE edema Pulm: No SOB, no cough, no wheezing GI: No nausea or vomiting, no change in bowel habits, no melena : No frequency, no urgency, no dysuria Musc: No back pain, no joint swelling, no recent injury Skin: No rash, no lesions, no erythema Endo: No excessive thirst, no heat/cold intolerance Heme: No unusual bruising or bleeding, no swollen glands Neuro: No syncope, no numbness/tingling, no focal weakness Vasc: No claudication. +chronic wound Psych: No recent change in mood, no SI or HI *Physical Exam - Vital Signs Last Vital Signs Temp Pulse Resp BP Pulse Ox 97.3 F L 80 18 121/72 100 05/07/19 22:31 05/07/19 22:31 05/07/19 22:31 05/07/19 22:31 05/07/19 22:31 - Physical Exam General: Comfortable, no acute distress HEENT: Atraumatic, PERRL, EOMI, MMM, voice normal, normal neck ROM Cards: RRR, no murmur appreciated Pulm: Comfortable on room air, clear to auscultation bilaterally Ext: Atraumatic. 2+ BLE edema. ROM intact Vasc: Extremities WWP Skin: Erythema and warmth to distal RLE c/w cellulitis. Nickel-sized wound on the posterior distal RLE with fibrinous exudate in base. No focal erythema or edema around wound, no purulence, no drainage, no bleeding Neuro: A&Ox3, CN grossly intact, normal speech, motor/sensory grossly intact and symmetric Psych: Mood appropriate to situation Medical Decision Making - Medical Decision Making 05/08/19 01:15 Marquis Holm is a 73yo man with a PMH of HTN, provoked DVT (following surgery ), DM, currently being treated since yesterday for RLE cellulitis who presented to the ED today with a bleeding to a chronic wound on his posterior right leg. - Wound examined; no active bleeding. Fibrinous exudate in wound base, but no purulence or drainage - Erythema and warmth to distal RLE, but pt recently started on antibiotics yesterday and following with his PMD. No additional treatment needed currently - Will wrap wound with xeroform and JEANNE dressing - Will give contact information for wound care follow up Seen with Dr Jean Pierre Adamson PGY2 Discharge - Discharge Information Problems reviewed: Yes Clinical Impression/Diagnosis: Edema of left lower extremity, Chronic wound of extremity Cellulitis Qualifiers: Site of cellulitis: extremity Site of cellulitis of extremity: lower extremity Laterality: right Qualified Code(s): L03.115 - Cellulitis of right lower limb Condition: Improved Disposition: HOME - Admission No - Follow up/Referral Referrals: Roderick Ye MD [Non Staff, Medical] - - Patient Discharge Instructions Patient Printed Discharge Instructions: Skin Wound Additional Instructions: Discharge Instructions: You were seen in the emergency department for a bleeding wound to your leg. The wound has stopped bleeding. It was dressed with a nonstick pressure dressing. Home Care: - Continue to take all of your regular medications - Keep a nonstick bandage on your wound to help protect it when you are at risk of bumping or scratching the wound - Follow up with your regular doctor about your leg cellulitis (skin infection) - You have been given contact information for Dr Ye, a vascular surgeon and rn documentation specialist. Follow up within the next 1-2 weeks - Seek immediate care for worsening leg redness or swelling, continued bleeding or drainage from the wound, fever to 101F or higher, or any other medical emergency. - Post Discharge Activity
--- NOTE | 2019-05-08 01:22 | PDOC ---
Documentation entered by Jocelyn Mancia SCRIBE, acting as scribe for Sridevi Greenfield MD. Sridevi Greenfield MD: This documentation has been prepared by the Blanche lock Nirvannie, SCRIBE, under my direction and personally reviewed by me in its entirety. I confirm that the documentation accurately reflects all work, treatment, procedures, and medical decision making performed by me. Attending Attestation - Resident Resident Name: Dayami Adamson - ED Attending Attestation I have performed the following: I have examined & evaluated the patient, The case was reviewed & discussed with the resident, I agree w/resident's findings & plan, Exceptions are as noted - HPI HPI: 05/08/19 01:14 73-year-old male presents with a ulcer on his right lower extremity blood this evening and so the patient came to the emergency department Upon arrival the bleeding had resolved - Physicial Exam PE: 05/08/19 01:21 there is a nickel size ulcer on the posterior aspect of his lower right leg, no active bleeding currently - Medical Decision Making 05/08/19 01:21 Chronic venous stasis with early cellulitis, patient is on antibiotics and right lower leg with an ulcer that blood Bleeding resolved spontaneously
== END 2019-05-08 01:40 | disposition home or self-care (01) ==
LOC: JER 21:48 → SUPCPDRO 21:48 → JER 05-08 01:40
DX: L03.115 Cellulitis of right lower limb (principal); L97.811 Non-pressure chronic ulcer of other part of right lower leg limited to breakdown of skin; I87.8 Other specified disorders of veins; I10 Essential (primary) hypertension; E11.9 Type 2 diabetes mellitus without complications; G62.9 Polyneuropathy, unspecified; N40.0 Benign prostatic hyperplasia without lower urinary tract symptoms; Z87.891 Personal history of nicotine dependence; Z88.0 Allergy status to penicillin
CPT/HCPCS: 99282-25

== ENCOUNTER 2020-01-06 15:55 | Inpatient (IN) | payer OTHER ==
--- NOTE | 2020-01-06 16:17 | PDOC ---
Rapid Medical Evaluation Time Seen by Provider: 01/06/20 16:13 Medical Evaluation: Allergies Allergy/AdvReac Type Severity Reaction Status Date / Time Penicillins Allergy Intermediate Rash Verified 12/06/19 14:54 01/06/20 16:14 I performed a brief in-person evaluation of this patient. Pt is a 74 y/o male who was sent by Dr. Ye for admission for an angiogram of his b/l LE. He needs to be admitted for [address] Davis. The patient has had unhealing wounds on his left foot. R leg wounds have mostly healed. The patient denies any fevers or chills. Pertinent physical exam findings: L foot with bandage and post op boot, speaking in full sentences I have ordered the following: saline lock, labs, covid swab Patient to proceed to ED for further evaluation. Discharge Disposition - Diagnosis Leg wound, left - Referrals Referrals: Jean Pierre Kirkland MD, MD [Primary Care Provider] - - Patient Instructions - Post Discharge Activity
[2020-01-06 16:20] VITALS: BMI 31.3
--- NOTE | 2020-01-06 18:13 | PDOC ---
History of Present Illness - General Chief Complaint: Wound Stated Complaint: REFERRED FOR ADMISSION Time Seen by Provider: 01/06/20 16:13 History Source: Patient Exam Limitations: No Limitations Past History - Travel History Traveled outside of the country in the last 30 days: No Close contact w/someone who was outside of country & ill: No - Medical History Allergies/Adverse Reactions: Allergies Allergy/AdvReac Type Severity Reaction Status Date / Time Penicillins Allergy Intermediate Rash Verified 01/06/20 16:14 Home Medications: Ambulatory Orders Baclofen 10 mg PO TID 11/27/18 Carvedilol 25 mg PO BID 11/27/18 Finasteride 5 mg PO DAILY 11/27/18 Gabapentin 400 mg PO TID 11/27/18 Linaclotide [Linzess] 145 mg PO DAILY 11/27/18 Varenicline Tartrate [Chantix -] 1 mg PO DAILY 11/27/18 Metformin HCl [Glucophage] 500 mg PO DAILY 07/29/19 Pramipexole Dihydrochloride [Mirapex -] 0.5 mg PO BID 07/29/19 Travoprost [Travatan Z] 0.004 units OU HS 07/29/19 Hydrochlorothiazide [Hctz -] 25 mg PO DAILY #30 tablet 10/01/19 Losartan Potassium [Cozaar -] 100 mg PO DAILY #30 tablet 10/01/19 Acetaminophen W/ Codeine #3 [Tylenol # 3 -] 1 tab PO Q6H #60 tablet MDD 4 12/13/19 Becaplermin [Regranex] 15 gm TP DAILY #1 gel..gram. 12/13/19 Collagenase Clostridium Hist. [Santyl] 1 applic TP DAILY #90 oint...g. 12/13/19 Anemia: No Asthma: No Cancer: No Cardiac Disorders: No CVA: No COPD: No CHF: No Dementia: No Diabetes: Yes (borderline DM) GI Disorders: No Disorders: No HTN: Yes Hypercholesterolemia: Yes Liver Disease: No Seizures: No Thyroid Disease: No - Surgical History Abdominal Surgery: No Appendectomy: No Cardiac Surgery: No Cholecystectomy: No Lung Surgery: No Neurologic Surgery: Yes (SPINAL SURGERY 2013) Orthopedic Surgery: No - Psycho-Social/Smoking History Smoking History: Never smoked Have you smoked in the past 12 months: No Number of Cigarettes Smoked Daily: 1 If you are a former smoker, when did you quit?: 2 months ago 'Breaking Loose' booklet given: 11/06/17 - Substance Abuse Hx (Audit-C & DAST Scrn) How often the patient has a drink containing alcohol: Never Score: In Men: 4 or > Positive; In Women: 3 or > Positive: 0 Screen Result (Pos requires Nsg. Audit-10AR): Negative In the last yr the pt used illegal drug/Rx for NonMed reason: No Score: Yes response is considered Positive: 0 Screen Result (Positive result requires Nsg. DAST-10): Negative Review of Systems - Review of Systems Able to Perform ROS?: Yes Comments:: 01/06/20 19:57 CONSTITUTIONAL: Absent: fever, chills, diaphoresis, generalized weakness, malaise, loss of appetite HEENT: Absent: rhinorrhea, nasal congestion, throat pain, throat swelling, difficulty swallowing, mouth swelling, ear pain, eye pain, visual Changes CARDIOVASCULAR: Absent: chest pain, loss of consciousness, palpitations, irregular heart rate, peripheral edema RESPIRATORY: Absent: cough, shortness of breath, dyspnea with exertion, orthopnea, wheezing, stridor, hemoptysis GASTROINTESTINAL: Absent: abdominal pain, abdominal distension, nausea, vomiting, diarrhea, constipation, melena, hematochezia GENITOURINARY: Absent: dysuria, frequency, urgency, hesitancy, hematuria, flank pain, genital pain MUSCULOSKELETAL: Absent: myalgia, arthralgia, joint swelling SKIN: Present: Left foot wound Absent: rash, itching, pallor HEMATOLOGIC/IMMUNOLOGIC: Absent: easy bleeding, easy bruising, lymphadenopathy, frequent infections ENDOCRINE: Absent: unexplained weight gain, unexplained weight loss, heat intolerance, cold intolerance NEUROLOGIC: Absent: headache, focal weakness or paresthesias, dizziness, unsteady gait, seizure, mental status changes, bladder or bowel incontinence PSYCHIATRIC: Absent: anxiety, depression, suicidal or homicidal ideation, hallucinations. Is the patient limited Georgian proficient: No *Physical Exam - Vital Signs Last Vital Signs Temp Pulse Resp BP Pulse Ox 98.5 F 71 18 150/83 100 01/06/20 16:16 01/06/20 16:16 01/06/20 16:16 01/06/20 16:16 01/06/20 16:16 - Physical Exam 01/06/20 19:58 GENERAL: Well developed, well nourished. Awake and alert. No acute distress. HEENT: Normocephalic, atraumatic. PERRLA, EOMI. No conjunctival pallor. Sclera are non- icteric. Moist mucous membranes. Oropharynx is clear. NECK: Supple. Full ROM. No JVD. Carotid pulses 2+ and symmetric, without bruits. No thyromegaly. No lymphadenopathy. CARDIOVASCULAR: Regular rate and rhythm. No murmurs, rubs, or gallops. Distal pulses are 2+ and symmetric. PULMONARY: No evidence of respiratory distress. Lungs clear to auscultation bilaterally. No wheezing, rales or rhonchi. ABDOMINAL: Soft. Non-tender. Non-distended. No rebound or guarding. No organomegaly. Normoactive bowel sounds. MUSCULOSKELETAL Normal range of motion at all joints. No bony deformities or tenderness. No CVA tenderness. EXTREMITIES: No cyanosis. No clubbing. No edema. No calf tenderness. SKIN: Wrapped L foot in post op boot with notable swelling. Weak L distal pulse. Warm and dry. Normal capillary refill. No rashes. No jaundice. NEUROLOGICAL: Alert, awake, appropriate. Cranial nerves 2-12 intact. No deficits to light touch and temperature in face, upper extremities and lower extremities. No motor deficits in the in face, upper extremities and lower extremities. Normoreflexic in the upper and lower extremities. Normal speech. Toes are down-going bilaterally. Gait is normal without ataxia. PSYCHIATRIC: Cooperative. Good eye contact. Appropriate mood and affect. ED Treatment Course - LABORATORY CBC & Chemistry Diagram: 01/06/20 19:40 01/06/20 19:20 Medical Decision Making - Medical Decision Making 01/06/20 19:59 Patient is a 74-year-old male with past medical history of prediabetes, hypertension, hyperlipidemia, presents to the ER today for admission for left foot wound. He states that he was sent in by Dr. Ye as he is having a angiogram done on and needs antibiotics prior to admission. He states he has had a nonhealing healing left foot ulcer starting in July. Denies fever, chills, redness to the area, numbness and tingling. A/P: Chronic left foot wound. On exam wound is wrapped, in postop boot. Weak distal pulses, edema appreciated. Basic labs, IV ordered for admission. PCP is Dr. Kirkland, will go to Hospitalists for Dr. Nash/Karen group Admission pending labs. Signout given to ARCENIO Greenfield. Discharge - Discharge Information Problems reviewed: Yes Clinical Impression/Diagnosis: Infected wound Leg wound, left Qualifiers: Encounter type: initial encounter Qualified Code(s): S81.802A - Unspecified open wound, left lower leg, initial encounter - Follow up/Referral - Patient Discharge Instructions - Post Discharge Activity
--- NOTE | 2020-01-06 19:47 | PDOC ---
*Physical Exam - Vital Signs Last Vital Signs Temp Pulse Resp BP Pulse Ox 98.5 F 71 18 150/83 100 01/06/20 16:16 01/06/20 16:16 01/06/20 16:16 01/06/20 16:16 01/06/20 16:16 ED Treatment Course - LABORATORY CBC & Chemistry Diagram: 01/06/20 19:40 01/06/20 19:20 Medical Decision Making - Medical Decision Making 01/06/20 21:45 patient signed out to ARCENIO Kumar 01/06/20 23:25 patient reports that his primary physcian is Dr. Abreu now. admission changed to Dr. Abreu service. Symphone ARCENIO Kumar made Dr. abreu aware of the admission. Dr. abreu to place admission orders. Discharge - Discharge Information Problems reviewed: Yes Clinical Impression/Diagnosis: Infected wound Leg wound, left Qualifiers: Encounter type: initial encounter Qualified Code(s): S81.802A - Unspecified open wound, left lower leg, initial encounter - Admission Yes - Follow up/Referral - Patient Discharge Instructions - Post Discharge Activity
[2020-01-06 19:59] LABS: BASO % 0.8 % (0-2.0); EOS % 2.5 % (0-4.5); HEMATOCRIT 32.9 % (35.4-49); LYMPH % 31.5 % (8-40); MCH 30.4 pg (25.7-33.7); MCHC 33.5 g/dl (32.0-35.9); MEAN CELL VOLUME 90.9 fl (80-96); MEAN PLT VOLUME 9.9 fl (7.5-11.1); MONO % 12.1 % (3.8-10.2); NEUT % 53.1 % (42.8-82.8); PLATELET COUNT 199 K/MM3 (134-434); RBC 3.61 M/mm3 (4.00-5.60); RDW 13.8 % (11.9-15.9); WHITE BLOOD COUNT 5.8 K/mm3 (4.0-10.0)
[2020-01-06 20:11] LABS: PROTHROMBIN TIME (PATIENT) 11.8 SEC (9.7-13.0)
[2020-01-06 20:28] LABS: ALBUMIN 3.4 g/dl (3.4-5.0); BILIRUBIN,TOTAL 0.4 mg/dL (0.2-1); BLOOD UREA NITROGEN 23.8 mg/dL (7-18); CALCIUM 8.6 mg/dL (8.5-10.1); CREATININE 1.4 mg/dL (0.55-1.3); POTASSIUM 5.1 mmol/L (3.5-5.1); TOT PROT 8.6 g/dl (6.4-8.2)
[2020-01-06] MEDS ORDERED: CLINDAMYCIN IVPB 300 MG in DEXTROSE 5%-WATER - 48 ML IVPB ONE (21:43)
--- NOTE | 2020-01-06 21:49 | HP ---
Admitting History and Physical - Primary Care Physician PCP: Jean Pierre Kirkland MD - Past Medical History Cardiovascular: Yes: Deep Vein Thrombosis, HTN Renal/: Yes: BPH Endocrine: Yes: Other (Bordeline DM) - Past Surgical History Past Surgical History: Yes: Laminectomy (Cervical) - Smoking History Smoking history: Never smoked Have you smoked in the past 12 months: No Aproximately how many cigarettes per day: 1 If you are a former smoker, when did you quit?: 2 months ago - Alcohol/Substance Use Hx Alcohol Use: No History of Substance Use: reports: None - Social History ADL: Independent Occupation: Retried- furniture repair History of Recent Travel: No Home Medications - Allergies Allergies/Adverse Reactions: Allergies Allergy/AdvReac Type Severity Reaction Status Date / Time Penicillins Allergy Intermediate Rash Verified 01/06/20 16:14 - Home Medications Home Medications: Ambulatory Orders Baclofen 10 mg PO TID 11/27/18 Carvedilol 25 mg PO BID 11/27/18 Finasteride 5 mg PO DAILY 11/27/18 Gabapentin 400 mg PO TID 11/27/18 Linaclotide [Linzess] 145 mg PO DAILY 11/27/18 Varenicline Tartrate [Chantix -] 1 mg PO DAILY 11/27/18 Metformin HCl [Glucophage] 500 mg PO DAILY 07/29/19 Pramipexole Dihydrochloride [Mirapex -] 0.5 mg PO BID 07/29/19 Travoprost [Travatan Z] 0.004 units OU HS 07/29/19 Hydrochlorothiazide [Hctz -] 25 mg PO DAILY #30 tablet 10/01/19 Losartan Potassium [Cozaar -] 100 mg PO DAILY #30 tablet 10/01/19 Acetaminophen W/ Codeine #3 [Tylenol # 3 -] 1 tab PO Q6H #60 tablet MDD 4 12/13/19 Becaplermin [Regranex] 15 gm TP DAILY #1 gel..gram. 12/13/19 Collagenase Clostridium Hist. [Santyl] 1 applic TP DAILY #90 oint...g. 12/13/19 Physical Examination Vital Signs: Vital Signs Temperature 98.5 F 01/06/20 16:16 Pulse Rate 71 01/06/20 16:16 Respiratory Rate 18 01/06/20 16:16 Blood Pressure 150/83 01/06/20 16:16 O2 Sat by Pulse Oximetry (%) 100 01/06/20 16:16 Labs: CBC, BMP 01/06/20 19:40 01/06/20 19:20
[2020-01-06] MEDS ORDERED: MEROPENEM 1 GM in DEXTROSE 5%-WATER 100 ML IVPB SCH (22:00)
[2020-01-06] MEDS ORDERED: HEPARIN NA (PORCINE) 5,000 UNITS/ML 1ML VIAL SQ SCH (22:00)
--- NOTE | 2020-01-06 23:26 | HOSP ---
Subjective - Review of Symptoms Events since last encounter: Hospitalist Encounter Was microblogged by ARCENIO Greenfield for an admission after speaking with the patient, he informed me that he has been seen by Dr Abreu recently. I placed a call to Dr Abreu to inform her of the admission, Dr Abreu will assume care. D/W [employer] Jean Pierre Cardiovascular: Yes: Edema Other Systems: Integumentary: Wound to L- foot, Wound to RLE Physical Examination Vital Signs: Vital Signs Temperature 98.5 F 01/06/20 16:16 Pulse Rate 71 01/06/20 16:16 Respiratory Rate 18 01/06/20 16:16 Blood Pressure 150/83 01/06/20 16:16 O2 Sat by Pulse Oximetry (%) 100 01/06/20 16:16 Constitutional: Yes: Well Nourished, No Distress, Calm Eyes: Yes: WNL, Conjunctiva Clear, EOM Intact, PERRL HENT: Yes: WNL, Atraumatic, Normocephalic Neck: Yes: WNL, Supple, Trachea Midline Cardiovascular: Yes: Regular Rate and Rhythm, S1, S2 Respiratory: Yes: Rhonchi (scattered in mid lobes). No: Cough, SOB, SOB on Exertion, Tachypnea Gastrointestinal: Yes: Normal Bowel Sounds, Hernia (reducible- above epigastrium) ...Rectal Exam: Yes: Deferred Renal/: Yes: WNL Breast(s): Yes: WNL Extremities: Yes: Erythema Edema: Yes Edema: LLE: 1+, RLE: 1+ Peripheral Pulses WNL: Yes Integumentary: Yes: Erythema, Venous Stasis Changes Wound/Incision: Yes: Other (Dressing with tape outer layers appear dry- left foot, RLE) Neurological: Yes: Alert, Oriented, Cran Nerves II-XII Intact ...Motor Strength: WNL Psychiatric: Yes: WNL, Alert, Oriented Labs: CBC, BMP 01/06/20 19:40 01/06/20 19:20 Hospitalist Encounter Recommendations/Interventions: Meropenem 1gm Q8h ID consult Vascular consult Reviewed microbiology report from 12/27/19
[2020-01-07] MEDS ORDERED: MEROPENEM 1 GM in DEXTROSE 5%-WATER 100 ML IVPB SCH (02:00)
[2020-01-07] MEDS ORDERED: BACLOFEN 10 MG TABLET (FP) ONE ×3 (05:56→21:56)
[2020-01-07] MEDS ORDERED: GABAPENTIN 100 MG CAPSULE ONE ×2 (05:56→21:56)
[2020-01-07] MEDS: BACLOFEN 10 MG TABLET (FP) PO SCH ×3 (06:01→22:00)
[2020-01-07] MEDS: GABAPENTIN 400 MG CAPSULE PO SCH ×3 (06:01→22:00)
[2020-01-07] MEDS ORDERED: MEROPENEM 1 GM in DEXTROSE 5%-WATER 100 ML IVPB ONE (07:00)
[2020-01-07 07:42] LABS: BASO % 0.9 % (0-2.0); EOS % 2.4 % (0-4.5); HEMATOCRIT 33.9 % (35.4-49); HEMOGLOBIN 11.3 GM/dL (11.7-16.9); LYMPH % 23.5 % (8-40); MCH 29.6 pg (25.7-33.7); MCHC 33.3 g/dl (32.0-35.9); MEAN PLT VOLUME 9.7 fl (7.5-11.1); MONO % 10.1 % (3.8-10.2); NEUT % 63.1 % (42.8-82.8); PLATELET COUNT 218 K/MM3 (134-434); RBC 3.81 M/mm3 (4.00-5.60); WHITE BLOOD COUNT 6.5 K/mm3 (4.0-10.0)
[2020-01-07] MEDS: INSULIN SLIDING SCALE (NOVOLOG) 1 VIAL SQ SCH ×4 (07:54→22:00)
[2020-01-07] MEDS ORDERED: MEROPENEM 1 GM VIAL (RESTRICTED TO ID) IVPB ONE (07:56)
[2020-01-07] MEDS ORDERED: metFORMIN HCL 500 MG TABLET (FP) ONE (07:56)
[2020-01-07] MEDS: metFORMIN HCL 500 MG TABLET (FP) PO SCH (08:09)
[2020-01-07 08:28] LABS: ALBUMIN 3.4 g/dl (3.4-5.0); BILIRUBIN,TOTAL 0.4 mg/dL (0.2-1); BLOOD UREA NITROGEN 21.5 mg/dL (7-18); CALCIUM 8.8 mg/dL (8.5-10.1); CREATININE 1.2 mg/dL (0.55-1.3); TOT PROT 8.4 g/dl (6.4-8.2)
--- NOTE | 2020-01-07 09:19 | CON.ID ---
Consult Consult Specialty:: infectious diseases Referred by:: dr bowser Reason for Consultation:: non healing wounds of the legs - History of Present Illness Chief Complaint: non healing wounds of the legs History of Present Illness: 74-year-old male with past medical history of prediabetes, hypertension, hyperlipidemia, presents to the ER today for admission for left foot wound. He states angiogram planned on and needs antibiotics prior to admission. He states he has had a nonhealing healing left foot ulcer starting in July. Denies fever, chills, redness to the area, numbness and tingling. has been getting treated in wound care multiple organisms - History Source History Provided By: Patient Limitations to Obtaining History: No Limitations - Past Medical History Cardio/Vascular: Yes: Deep Vein Thrombosis, HTN Renal/: Yes: BPH Endocrine: Yes: Other (Bordeline DM) - Past Surgical History Past Surgical History: Yes: Laminectomy (Cervical) - Alcohol/Substance Use Hx Alcohol Use: No History of Substance Use: reports: None - Smoking History Smoking history: Never smoked Have you smoked in the past 12 months: No Aproximately how many cigarettes per day: 1 If you are a former smoker, when did you quit?: 2 months ago - Social History ADL: Independent Occupation: Retried- furniture repair History of Recent Travel: No Home Medications - Allergies Allergies/Adverse Reactions: Allergies Allergy/AdvReac Type Severity Reaction Status Date / Time Penicillins Allergy Intermediate Rash Verified 01/06/20 16:14 - Home Medications Home Medications: Ambulatory Orders Baclofen 10 mg PO TID 11/27/18 Carvedilol 25 mg PO BID 11/27/18 Finasteride 5 mg PO DAILY 11/27/18 Gabapentin 400 mg PO TID 11/27/18 Linaclotide [Linzess] 145 mg PO DAILY 11/27/18 Varenicline Tartrate [Chantix -] 1 mg PO DAILY 11/27/18 Metformin HCl [Glucophage] 500 mg PO DAILY 07/29/19 Pramipexole Dihydrochloride [Mirapex -] 0.5 mg PO BID 07/29/19 Travoprost [Travatan Z] 0.004 units OU HS 07/29/19 Hydrochlorothiazide [Hctz -] 25 mg PO DAILY #30 tablet 10/01/19 Losartan Potassium [Cozaar -] 100 mg PO DAILY #30 tablet 10/01/19 Acetaminophen W/ Codeine #3 [Tylenol # 3 -] 1 tab PO Q6H #60 tablet MDD 4 12/13/19 Becaplermin [Regranex] 15 gm TP DAILY #1 gel..gram. 12/13/19 Collagenase Clostridium Hist. [Santyl] 1 applic TP DAILY #90 oint...g. 12/13/19 Review of Systems - Review of Systems Constitutional: reports: No Symptoms Eyes: reports: No Symptoms HENT: reports: No Symptoms Neck: reports: No Symptoms Cardiovascular: reports: No Symptoms Respiratory: reports: No Symptoms Gastrointestinal: reports: No Symptoms Musculoskeletal: reports: Other Integumentary: reports: Erythema, Other (multiple wounds on the leg) Neurological: reports: No Symptoms Endocrine: reports: No Symptoms Hematology/Lymphatic: reports: No Symptoms Psychiatric: reports: No Symptoms Physical Exam Vital Signs: Vital Signs Temperature 98.0 F 01/07/20 06:22 Pulse Rate 73 01/07/20 06:22 Respiratory Rate 18 01/07/20 06:22 Blood Pressure 166/96 01/07/20 06:22 O2 Sat by Pulse Oximetry (%) 98 01/07/20 06:22 Constitutional: Yes: Well Nourished, No Distress, Calm Cardiovascular: Yes: S1, S2 Respiratory: Yes: Regular, CTA Bilaterally Gastrointestinal: Yes: Normal Bowel Sounds, Soft Musculoskeletal: Yes: WNL Extremities: Yes: Other Integumentary: Yes: Other Wound/Incision: Yes: Dressing Dry and Intact Neurological: Yes: Alert, Oriented Psychiatric: Yes: Alert, Oriented Labs: CBC, BMP 01/07/20 05:55 01/07/20 05:55 Imaging - Results X-ray: Report Reviewed, Image Reviewed Assessment/Plan Problem List - Problems (1) Infected wound Code(s): T14.8XXA - OTHER INJURY OF UNSPECIFIED BODY REGION, INITIAL ENCOUNTER; L08.9 - LOCAL INFECTION OF THE SKIN AND SUBCUTANEOUS TISSUE, UNSP (2) Leg wound, left Code(s): S81.802A - UNSPECIFIED OPEN WOUND, LEFT LOWER LEG, INITIAL ENCOUNTER Qualifiers: Encounter type: initial encounter Qualified Code(s): S81.802A - Unspecified open wound, left lower leg, initial encounter (3) BPH (benign prostatic hyperplasia) Code(s): N40.0 - BENIGN PROSTATIC HYPERPLASIA WITHOUT LOWER URINRY TRACT SYMP (4) Diabetes Code(s): E11.9 - TYPE 2 DIABETES MELLITUS WITHOUT COMPLICATIONS (5) HTN (hypertension) Code(s): I10 - ESSENTIAL (PRIMARY) HYPERTENSION Qualifiers: Hypertension type: unspecified Qualified Code(s): I10 - Essential (primary) hypertension plan meropenam angio will decide after that rest as per the team
--- NOTE | 2020-01-07 09:27 | EKG ---
Test Reason : Blood Pressure : / mmHG Vent. Rate : 067 BPM Atrial Rate : 067 BPM P-R Int : 176 ms QRS Dur : 100 ms QT Int : 402 ms P-R-T Axes : 064 040 044 degrees QTc Int : 424 ms NORMAL SINUS RHYTHM NORMAL ECG WHEN COMPARED WITH ECG OF 18-SEP-2019 15:57, PREMATURE VENTRICULAR COMPLEXES ARE NO LONGER PRESENT Confirmed by MD NOAM, JABIER ([id number]) on 01/07/2020 9:26:45 AM Referred By: Confirmed By:JABIER SANTACRUZ MD
[2020-01-07] MEDS ORDERED: CARVEDILOL 12.5 MG TABLET (FP) ONE ×2 (09:33→21:56)
[2020-01-07] MEDS ORDERED: HYDROCHLOROTHIAZIDE 25 MG TABLET (FP) ONE (09:33)
[2020-01-07] MEDS ORDERED: LOSARTAN POTASSIUM 50 MG TABLET ONE (09:34)
[2020-01-07] MEDS ORDERED: PT OWN MED DRAWER 7, Y5N ONE (09:39)
[2020-01-07] MEDS ORDERED: ENOXAPARIN NA (PORCINE) 40 MG/0.4 ML DISP.SYRIN SQ ONE (09:41)
[2020-01-07] MEDS: CARVEDILOL 25 MG TABLET (FP) PO SCH ×2 (09:50→22:00)
[2020-01-07] MEDS: LOSARTAN POTASSIUM 50 MG TABLET PO SCH (09:51)
[2020-01-07] MEDS: ENOXAPARIN NA (PORCINE) 40 MG/0.4 ML DISP.SYRIN SQ SCH (09:51)
[2020-01-07] MEDS: PRAMIPEXOLE DIHYDROCHLORIDE 0.5 MG TABLET PO SCH (09:51)
[2020-01-07] MEDS: HYDROCHLOROTHIAZIDE 25 MG TABLET (FP) PO SCH (09:51)
[2020-01-07] MEDS: FINASTERIDE 5 MG TABLET (FP) PO SCH (09:51)
--- NOTE | 2020-01-07 18:20 | HP ---
Admitting History and Physical - Primary Care Physician PCP: Jaki Abreu - Admission History of Present Illness: 74-year-old male with past medical history of prediabetes, hypertension, hyperlipidemia, presents to the ER today for admission for left foot wound. He states that he was sent in by Dr. Ye as he is having a angiogram done on and needs antibiotics prior to admission. He states he has had a nonhealing healing left foot ulcer starting in July. Denies fever, chills, redness to the area, numbness and tingling. Chronic left foot wound. - Past Medical History Cardiovascular: Yes: Deep Vein Thrombosis, HTN Renal/: Yes: BPH Endocrine: Yes: Other (Bordeline DM) - Past Surgical History Past Surgical History: Yes: Laminectomy (Cervical) - Smoking History Smoking history: Never smoked Have you smoked in the past 12 months: No Aproximately how many cigarettes per day: 1 If you are a former smoker, when did you quit?: 2 months ago - Alcohol/Substance Use Hx Alcohol Use: No History of Substance Use: reports: None - Social History ADL: Independent Occupation: Retried- furniture repair History of Recent Travel: No Home Medications - Allergies Allergies/Adverse Reactions: Allergies Allergy/AdvReac Type Severity Reaction Status Date / Time Penicillins Allergy Intermediate Rash Verified 01/06/20 16:14 - Home Medications Home Medications: Ambulatory Orders Baclofen 10 mg PO TID 11/27/18 Carvedilol 25 mg PO BID 11/27/18 Finasteride 5 mg PO DAILY 11/27/18 Gabapentin 400 mg PO TID 11/27/18 Linaclotide [Linzess] 145 mg PO DAILY 11/27/18 Varenicline Tartrate [Chantix -] 1 mg PO DAILY 11/27/18 Metformin HCl [Glucophage] 500 mg PO DAILY 07/29/19 Pramipexole Dihydrochloride [Mirapex -] 0.5 mg PO BID 07/29/19 Travoprost [Travatan Z] 0.004 units OU HS 07/29/19 Hydrochlorothiazide [Hctz -] 25 mg PO DAILY #30 tablet 10/01/19 Losartan Potassium [Cozaar -] 100 mg PO DAILY #30 tablet 10/01/19 Acetaminophen W/ Codeine #3 [Tylenol # 3 -] 1 tab PO Q6H #60 tablet MDD 4 12/13/19 Becaplermin [Regranex] 15 gm TP DAILY #1 gel..gram. 12/13/19 Collagenase Clostridium Hist. [Santyl] 1 applic TP DAILY #90 oint...g. 12/13/19 Physical Examination Vital Signs: Vital Signs Temperature 98.7 F 01/07/20 15:00 Pulse Rate 72 01/07/20 15:00 Respiratory Rate 18 01/07/20 15:00 Blood Pressure 126/70 01/07/20 15:00 O2 Sat by Pulse Oximetry (%) 98 01/07/20 15:00 Constitutional: Yes: No Distress HENT: Yes: Atraumatic Neck: Yes: Supple Cardiovascular: Yes: Regular Rate and Rhythm Respiratory: Yes: CTA Bilaterally Gastrointestinal: Yes: Normal Bowel Sounds Extremities: Yes: Other (llex wound) Edema: Yes Edema: LLE: Trace Neurological: Yes: Alert, Oriented Labs: CBC, BMP 01/07/20 05:55 01/07/20 05:55 Imaging - Results X-ray: Report Reviewed Problem List - Problems (1) Infected wound Code(s): T14.8XXA - OTHER INJURY OF UNSPECIFIED BODY REGION, INITIAL ENCOUNTER; L08.9 - LOCAL INFECTION OF THE SKIN AND SUBCUTANEOUS TISSUE, UNSP (2) Leg wound, left Assessment/Plan: ON IV ABX WOUND CARE ID CONSULT Code(s): S81.802A - UNSPECIFIED OPEN WOUND, LEFT LOWER LEG, INITIAL ENCOUNTER Qualifiers: Encounter type: initial encounter Qualified Code(s): S81.802A - Unspecified open wound, left lower leg, initial encounter (3) BPH (benign prostatic hyperplasia) Code(s): N40.0 - BENIGN PROSTATIC HYPERPLASIA WITHOUT LOWER URINRY TRACT SYMP (4) Diabetes Assessment/Plan: BGMS INSULIN ORAL MEDS Code(s): E11.9 - TYPE 2 DIABETES MELLITUS WITHOUT COMPLICATIONS (5) HTN (hypertension) Assessment/Plan: ON MEDS MONITOR Code(s): I10 - ESSENTIAL (PRIMARY) HYPERTENSION Qualifiers: Hypertension type: unspecified Qualified Code(s): I10 - Essential (primary) hypertension Assessment/Plan Laboratory Tests 01/06/20 01/06/20 01/06/20 19:20 19:20 19:40 WBC 5.8 RBC 3.61 L Hgb 11.0 L Hct 32.9 L MCV 90.9 MCH 30.4 MCHC 33.5 RDW 13.8 Plt Count 199 MPV 9.9 Absolute Neuts (auto) 3.1 Neutrophils % 53.1 Lymphocytes % 31.5 Monocytes % 12.1 H Eosinophils % 2.5 Basophils % 0.8 Nucleated RBC % 0 PT with INR INR PTT (Actin FS) Sodium 136 Potassium 5.1 Chloride 101 Carbon Dioxide 32 Anion Gap 3 L BUN 23.8 H Creatinine 1.4 H Est GFR (CKD-EPI)AfAm 56.96 Est GFR (CKD-EPI)NonAf 49.14 POC Glucometer Random Glucose 93 Calcium 8.6 Total Bilirubin 0.4 AST 41 H ALT 19 Alkaline Phosphatase 66 Total Protein 8.6 H Albumin 3.4 Blood Type A POSITIVE Antibody Screen Negative 01/06/20 01/07/20 01/07/20 19:40 05:55 05:55 WBC 6.5 RBC 3.81 L Hgb 11.3 L Hct 33.9 L MCV 89.0 MCH 29.6 MCHC 33.3 RDW 14.0 Plt Count 218 MPV 9.7 Absolute Neuts (auto) 4.1 Neutrophils % 63.1 Lymphocytes % 23.5 D Monocytes % 10.1 Eosinophils % 2.4 Basophils % 0.9 Nucleated RBC % 0 PT with INR 11.80 INR 1.00 PTT (Actin FS) 37.0 H Sodium 137 Potassium 4.0 Chloride 102 Carbon Dioxide 30 Anion Gap 5 L BUN 21.5 H Creatinine 1.2 Est GFR (CKD-EPI)AfAm 68.63 Est GFR (CKD-EPI)NonAf 59.21 POC Glucometer Random Glucose 92 Calcium 8.8 Total Bilirubin 0.4 AST 13 L ALT 14 Alkaline Phosphatase 71 Total Protein 8.4 H Albumin 3.4 Blood Type Antibody Screen 01/07/20 01/07/20 01/07/20 07:52 11:49 16:25 WBC RBC Hgb Hct MCV MCH MCHC RDW Plt Count MPV Absolute Neuts (auto) Neutrophils % Lymphocytes % Monocytes % Eosinophils % Basophils % Nucleated RBC % PT with INR INR PTT (Actin FS) Sodium Potassium Chloride Carbon Dioxide Anion Gap BUN Creatinine Est GFR (CKD-EPI)AfAm Est GFR (CKD-EPI)NonAf POC Glucometer 97 90 96 Random Glucose Calcium Total Bilirubin AST ALT Alkaline Phosphatase Total Protein Albumin Blood Type Antibody Screen Active Medications Generic Name Dose Route Start Last Admin Trade Name Taylor PRN Reason Stop Dose Admin Baclofen 10 mg 01/07/20 06:00 01/07/20 14:59 Lioresal - PO 10 mg TID VIRGIE Administration Carvedilol 25 mg 01/07/20 10:00 01/07/20 09:50 Coreg - PO 25 mg BID VIRGIE Administration Enoxaparin Sodium 40 mg 01/07/20 10:00 01/07/20 09:51 Lovenox - SQ 40 mg DAILY VIRGIE Administration Finasteride 5 mg 01/07/20 10:00 01/07/20 09:51 Proscar - PO 5 mg DAILY VIRGIE Administration Gabapentin 400 mg 01/07/20 06:00 01/07/20 14:59 Neurontin - PO 400 mg TID VIRGIE Administration Hydrochlorothiazide 25 mg 01/07/20 10:00 01/07/20 09:51 Hctz - PO 25 mg DAILY VIRGIE Administration Insulin Aspart 1 vial 01/07/20 07:00 01/07/20 16:26 Novolog Vial Sliding Scale - SQ Not Given ACHS [facility] Protocol Latanoprost 1 drop 01/07/20 22:00 Xalatan 0.005% Eye Drops - OU HS VIRGIE Losartan Potassium 100 mg 01/07/20 10:00 01/07/20 09:51 Cozaar - PO 100 mg DAILY VIRGIE Administration Metformin HCl 500 mg 01/07/20 07:00 01/07/20 08:09 Glucophage - PO 500 mg DAILY@0700 VIRGIE Administration Pramipexole Dihydrochloride 0.5 mg 01/07/20 10:00 01/07/20 09:51 Mirapex - PO 0.5 mg BID VIRGIE Administration MEDICINE COVERAGE FOR DR ABREU TODAY
[2020-01-08] MEDS: LATANOPROST 0.005% OPHTH SOLN 2.5ML BOTTLE OU SCH ×2 (02:06→21:34)
[2020-01-08] MEDS: PRAMIPEXOLE DIHYDROCHLORIDE 0.5 MG TABLET PO SCH ×3 (02:06→21:31)
[2020-01-08] MEDS: GABAPENTIN 400 MG CAPSULE PO SCH ×3 (06:17→21:32)
[2020-01-08] MEDS: metFORMIN HCL 500 MG TABLET (FP) PO SCH (06:18)
[2020-01-08] MEDS: BACLOFEN 10 MG TABLET (FP) PO SCH ×3 (06:18→21:31)
[2020-01-08] MEDS: INSULIN SLIDING SCALE (NOVOLOG) 1 VIAL SQ SCH ×3 (06:18→21:32)
[2020-01-08] MEDS ORDERED: PT OWN MED DRAWER 7, Y5N ONE ×2 (09:31→21:14)
[2020-01-08] MEDS: FINASTERIDE 5 MG TABLET (FP) PO SCH (09:41)
[2020-01-08] MEDS: CARVEDILOL 25 MG TABLET (FP) PO SCH ×2 (09:41→21:31)
[2020-01-08] MEDS: ENOXAPARIN NA (PORCINE) 40 MG/0.4 ML DISP.SYRIN SQ SCH (09:41)
[2020-01-08] MEDS: HYDROCHLOROTHIAZIDE 25 MG TABLET (FP) PO SCH (09:41)
[2020-01-08] MEDS: LOSARTAN POTASSIUM 50 MG TABLET PO SCH (09:41)
--- NOTE | 2020-01-08 10:15 | PN ---
Progress Note, Physician History of Present Illness: stable no new issues - Current Medication List Current Medications: Active Medications Baclofen (Lioresal -) 10 mg PO TID [facility] Last Admin: 01/08/20 06:18 Dose: 10 mg Documented by: Carvedilol (Coreg -) 25 mg PO BID [facility] Last Admin: 01/08/20 09:41 Dose: 25 mg Documented by: Enoxaparin Sodium (Lovenox -) 40 mg SQ DAILY [facility] Last Admin: 01/08/20 09:41 Dose: 40 mg Documented by: Finasteride (Proscar -) 5 mg PO DAILY [facility] Last Admin: 01/08/20 09:41 Dose: 5 mg Documented by: Gabapentin (Neurontin -) 400 mg PO TID [facility] Last Admin: 01/08/20 06:17 Dose: 400 mg Documented by: Hydrochlorothiazide (Hctz -) 25 mg PO DAILY [facility] Last Admin: 01/08/20 09:41 Dose: 25 mg Documented by: Insulin Aspart (Novolog Vial Sliding Scale -) 1 vial SQ [facility]; Protocol Last Admin: 01/08/20 06:18 Dose: Not Given Documented by: Latanoprost (Xalatan 0.005% Eye Drops -) 1 drop OU HS [facility] Last Admin: 01/08/20 02:06 Dose: 1 drop Documented by: Losartan Potassium (Cozaar -) 100 mg PO DAILY [facility] Last Admin: 01/08/20 09:41 Dose: 100 mg Documented by: Metformin HCl (Glucophage -) 500 mg PO DAILY@0700 [facility] Last Admin: 01/08/20 06:18 Dose: 500 mg Documented by: Pramipexole Dihydrochloride (Mirapex -) 0.5 mg PO BID [facility] Last Admin: 01/08/20 02:06 Dose: 0.5 mg Documented by: - Objective Vital Signs: Vital Signs Temperature 97.6 F 01/08/20 06:00 Pulse Rate 64 01/08/20 06:00 Respiratory Rate 20 01/08/20 06:00 Blood Pressure 156/93 01/08/20 06:00 O2 Sat by Pulse Oximetry (%) 100 01/08/20 06:00 Constitutional: Yes: No Distress, Calm Cardiovascular: Yes: S1, S2 Respiratory: Yes: Regular, CTA Bilaterally Gastrointestinal: Yes: Normal Bowel Sounds, Soft Musculoskeletal: Yes: WNL Extremities: Yes: Other Wound/Incision: Yes: Dressing Dry and Intact Neurological: Yes: Alert, Oriented Psychiatric: Yes: Alert, Oriented Labs: CBC, BMP 01/07/20 05:55 01/07/20 05:55 INR, PTT INR 1.00 (0.83-1.09) 01/06/20 19:40 Assessment/Plan Problem List - Problems (1) Infected wound Code(s): T14.8XXA - OTHER INJURY OF UNSPECIFIED BODY REGION, INITIAL ENCOUNTER; L08.9 - LOCAL INFECTION OF THE SKIN AND SUBCUTANEOUS TISSUE, UNSP (2) Leg wound, left Code(s): S81.802A - UNSPECIFIED OPEN WOUND, LEFT LOWER LEG, INITIAL ENCOUNTER Qualifiers: Encounter type: initial encounter Qualified Code(s): S81.802A - Unspecified open wound, left lower leg, initial encounter (3) BPH (benign prostatic hyperplasia) Code(s): N40.0 - BENIGN PROSTATIC HYPERPLASIA WITHOUT LOWER URINRY TRACT SYMP (4) Diabetes Code(s): E11.9 - TYPE 2 DIABETES MELLITUS WITHOUT COMPLICATIONS (5) HTN (hypertension) Code(s): I10 - ESSENTIAL (PRIMARY) HYPERTENSION Qualifiers: Hypertension type: unspecified Qualified Code(s): I10 - Essential (primary) hypertension plan meropenam angio will decide after that rest as per the team
--- NOTE | 2020-01-08 15:48 | PN ---
Progress Note, Physician History of Present Illness: stable - Current Medication List Current Medications: Active Medications Baclofen (Lioresal -) 10 mg PO TID [facility] Last Admin: 01/08/20 06:18 Dose: 10 mg Documented by: Carvedilol (Coreg -) 25 mg PO BID [facility] Last Admin: 01/08/20 09:41 Dose: 25 mg Documented by: Enoxaparin Sodium (Lovenox -) 40 mg SQ DAILY [facility] Last Admin: 01/08/20 09:41 Dose: 40 mg Documented by: Finasteride (Proscar -) 5 mg PO DAILY [facility] Last Admin: 01/08/20 09:41 Dose: 5 mg Documented by: Gabapentin (Neurontin -) 400 mg PO TID [facility] Last Admin: 01/08/20 06:17 Dose: 400 mg Documented by: Hydrochlorothiazide (Hctz -) 25 mg PO DAILY [facility] Last Admin: 01/08/20 09:41 Dose: 25 mg Documented by: Meropenem 1 gm/ Dextrose 100 mls @ 200 mls/hr IVPB Q8H-IV [facility] Insulin Aspart (Novolog Vial Sliding Scale -) 1 vial SQ ACHS [facility]; Protocol Last Admin: 01/08/20 06:18 Dose: Not Given Documented by: Latanoprost (Xalatan 0.005% Eye Drops -) 1 drop OU HS [facility] Last Admin: 01/08/20 02:06 Dose: 1 drop Documented by: Losartan Potassium (Cozaar -) 100 mg PO DAILY [facility] Last Admin: 01/08/20 09:41 Dose: 100 mg Documented by: Metformin HCl (Glucophage -) 500 mg PO DAILY@0700 [facility] Last Admin: 01/08/20 06:18 Dose: 500 mg Documented by: Pramipexole Dihydrochloride (Mirapex -) 0.5 mg PO BID [facility] Last Admin: 01/08/20 02:06 Dose: 0.5 mg Documented by: - Objective Vital Signs: Vital Signs Temperature 97.3 F L 01/08/20 14:40 Pulse Rate 68 01/08/20 14:40 Respiratory Rate 20 01/08/20 14:40 Blood Pressure 138/75 01/08/20 14:40 O2 Sat by Pulse Oximetry (%) 100 01/08/20 06:00 Constitutional: Yes: No Distress HENT: Yes: Atraumatic Neck: Yes: Supple Cardiovascular: Yes: Regular Rate and Rhythm Respiratory: Yes: CTA Bilaterally Gastrointestinal: Yes: Normal Bowel Sounds Extremities: Yes: Other (llex wound/dressing intact) Edema: No Neurological: Yes: Alert, Oriented Labs: CBC, BMP 01/07/20 05:55 01/07/20 05:55 INR, PTT INR 1.00 (0.83-1.09) 01/06/20 19:40 Problem List - Problems (1) Infected wound Code(s): T14.8XXA - OTHER INJURY OF UNSPECIFIED BODY REGION, INITIAL ENCOUNTER; L08.9 - LOCAL INFECTION OF THE SKIN AND SUBCUTANEOUS TISSUE, UNSP (2) Leg wound, left Assessment/Plan: ON IV ABX WOUND CARE ID CONSULT FOR ANGIO TOMORROW LLEX Code(s): S81.802A - UNSPECIFIED OPEN WOUND, LEFT LOWER LEG, INITIAL ENCOUNTER Qualifiers: Encounter type: initial encounter Qualified Code(s): S81.802A - Unspecified open wound, left lower leg, initial encounter (3) BPH (benign prostatic hyperplasia) Code(s): N40.0 - BENIGN PROSTATIC HYPERPLASIA WITHOUT LOWER URINRY TRACT SYMP (4) Diabetes Assessment/Plan: BGMS INSULIN ORAL MEDS Code(s): E11.9 - TYPE 2 DIABETES MELLITUS WITHOUT COMPLICATIONS (5) HTN (hypertension) Assessment/Plan: ON MEDS MONITOR Code(s): I10 - ESSENTIAL (PRIMARY) HYPERTENSION Qualifiers: Hypertension type: unspecified Qualified Code(s): I10 - Essential (primary) hypertension Assessment/Plan COVERING FOR DR BROWN STEIN
--- NOTE | 2020-01-08 16:21 | SPA.PREOP ---
- PRE-OP NOTE Dx: left leg wound Planned Procedure: angio of LLE Surgeon: Dr. Ye Last Vital Signs Temp Pulse Resp BP Pulse Ox 97.3 F L 68 20 138/75 100 01/08/20 14:40 01/08/20 14:40 01/08/20 14:40 01/08/20 14:40 01/08/20 06:00 Lab Results WBC 6.5 K/mm3 (4.0-10.0) 01/07/20 05:55 RBC 3.81 M/mm3 (4.00-5.60) L 01/07/20 05:55 Hgb 11.3 GM/dL (11.7-16.9) L 01/07/20 05:55 Hct 33.9 % (35.4-49) L 01/07/20 05:55 MCV 89.0 fl (80-96) 01/07/20 05:55 MCHC 33.3 g/dl (32.0-35.9) 01/07/20 05:55 RDW 14.0 % (11.9-15.9) 01/07/20 05:55 Plt Count 218 K/MM3 (134-434) 01/07/20 05:55 INR 1.00 (0.83-1.09) 01/06/20 19:40 Sodium 137 mmol/L (136-145) 01/07/20 05:55 Potassium 4.0 mmol/L (3.5-5.1) 01/07/20 05:55 Chloride 102 mmol/L (98-107) 01/07/20 05:55 Carbon Dioxide 30 mmol/L (21-32) 01/07/20 05:55 Anion Gap 5 MMOL/L (8-16) L 01/07/20 05:55 BUN 21.5 mg/dL (7-18) H 01/07/20 05:55 Creatinine 1.2 mg/dL (0.55-1.3) 01/07/20 05:55 Random Glucose 92 mg/dL (74-106) 01/07/20 05:55 Calcium 8.8 mg/dL (8.5-10.1) 01/07/20 05:55 Blood Type A POSITIVE 01/06/20 19:20 Antibody Screen Negative 01/06/20 19:20 Laboratory Tests 01/06/20 19:20 COVID-19 ([place]) Not detected - ASSESSMENT/PLAN 1. Make NPO after midnight except po meds 2. GI/DVT PPX 3. Medical optimization / clearance 4. Consent to be obtained by surgeon after risks, benefits and alternatives discussed with patient and or Health Care Proxy.
[2020-01-08] MEDS ORDERED: DEXTROSE 5%-WATER 100 ML IVPB ONE (17:10)
[2020-01-08] MEDS ORDERED: MEROPENEM 1 GM VIAL (RESTRICTED TO ID) IVPB ONE (17:10)
[2020-01-08] MEDS: MEROPENEM 1 GM in DEXTROSE 5%-WATER 100 ML IVPB SCH ×2 (17:11→18:42)
[2020-01-09] MEDS ORDERED: MEROPENEM 1 GM VIAL (RESTRICTED TO ID) IVPB ONE ×3 (02:43→16:49)
[2020-01-09] MEDS ORDERED: DEXTROSE 5%-WATER 100 ML IVPB ONE ×3 (02:43→16:49)
[2020-01-09] MEDS: MEROPENEM 1 GM in DEXTROSE 5%-WATER 100 ML IVPB SCH ×3 (03:00→17:57)
[2020-01-09] MEDS: BACLOFEN 10 MG TABLET (FP) PO SCH ×3 (06:24→21:45)
[2020-01-09] MEDS: GABAPENTIN 400 MG CAPSULE PO SCH ×2 (06:25→16:20)
[2020-01-09] MEDS: INSULIN SLIDING SCALE (NOVOLOG) 1 VIAL SQ SCH ×4 (06:25→21:48)
[2020-01-09] MEDS: metFORMIN HCL 500 MG TABLET (FP) PO SCH (06:27)
[2020-01-09] MEDS ORDERED: PT OWN MED DRAWER 7, Y5N ONE (08:56)
[2020-01-09] MEDS: ENOXAPARIN NA (PORCINE) 40 MG/0.4 ML DISP.SYRIN SQ SCH (09:10)
[2020-01-09] MEDS: HYDROCHLOROTHIAZIDE 25 MG TABLET (FP) PO SCH (09:11)
[2020-01-09] MEDS: FINASTERIDE 5 MG TABLET (FP) PO SCH (09:11)
[2020-01-09] MEDS: LOSARTAN POTASSIUM 50 MG TABLET PO SCH (09:11)
[2020-01-09] MEDS: CARVEDILOL 25 MG TABLET (FP) PO SCH ×2 (09:11→21:44)
[2020-01-09] MEDS: PRAMIPEXOLE DIHYDROCHLORIDE 0.5 MG TABLET PO SCH (09:11)
--- NOTE | 2020-01-09 13:16 | PN ---
Progress Note, Physician History of Present Illness: doing well no complaints - Current Medication List Current Medications: Active Medications Baclofen (Lioresal -) 10 mg PO TID [facility] Last Admin: 01/09/20 06:24 Dose: 10 mg Documented by: Carvedilol (Coreg -) 25 mg PO BID [facility] Last Admin: 01/09/20 09:11 Dose: 25 mg Documented by: Enoxaparin Sodium (Lovenox -) 40 mg SQ DAILY [facility] Last Admin: 01/09/20 09:10 Dose: 40 mg Documented by: Finasteride (Proscar -) 5 mg PO DAILY [facility] Last Admin: 01/09/20 09:11 Dose: 5 mg Documented by: Gabapentin (Neurontin -) 400 mg PO TID [facility] Last Admin: 01/09/20 06:25 Dose: 400 mg Documented by: Hydrochlorothiazide (Hctz -) 25 mg PO DAILY [facility] Last Admin: 01/09/20 09:11 Dose: 25 mg Documented by: Meropenem 1 gm/ Dextrose 100 mls @ 200 mls/hr IVPB Q8H-IV [facility] Last Admin: 01/09/20 09:12 Dose: 200 mls/hr Documented by: Insulin Aspart (Novolog Vial Sliding Scale -) 1 vial SQ [facility]; Protocol Last Admin: 01/09/20 06:25 Dose: Not Given Documented by: Latanoprost (Xalatan 0.005% Eye Drops -) 1 drop OU HS [facility] Last Admin: 01/08/20 21:34 Dose: 1 drop Documented by: Losartan Potassium (Cozaar -) 100 mg PO DAILY [facility] Last Admin: 01/09/20 09:11 Dose: 100 mg Documented by: Metformin HCl (Glucophage -) 500 mg PO DAILY@0700 [facility] Last Admin: 01/09/20 06:27 Dose: 500 mg Documented by: Pramipexole Dihydrochloride (Mirapex -) 0.5 mg PO BID [facility] Last Admin: 01/09/20 09:11 Dose: 0.5 mg Documented by: - Objective Vital Signs: Vital Signs Temperature 97.6 F 01/09/20 06:48 Pulse Rate 68 01/09/20 06:48 Respiratory Rate 18 01/09/20 06:48 Blood Pressure 161/86 01/09/20 06:48 O2 Sat by Pulse Oximetry (%) 99 01/08/20 21:00 Constitutional: Yes: No Distress, Calm Cardiovascular: Yes: S1, S2 Respiratory: Yes: Regular, CTA Bilaterally Gastrointestinal: Yes: Normal Bowel Sounds, Soft Musculoskeletal: Yes: WNL Extremities: Yes: Other Neurological: Yes: Alert, Oriented Psychiatric: Yes: Alert, Oriented Labs: CBC, BMP 01/07/20 05:55 01/07/20 05:55 INR, PTT INR 1.00 (0.83-1.09) 01/06/20 19:40 Assessment/Plan Problem List - Problems (1) Infected wound Code(s): T14.8XXA - OTHER INJURY OF UNSPECIFIED BODY REGION, INITIAL ENCOUNTER; L08.9 - LOCAL INFECTION OF THE SKIN AND SUBCUTANEOUS TISSUE, UNSP (2) Leg wound, left Code(s): S81.802A - UNSPECIFIED OPEN WOUND, LEFT LOWER LEG, INITIAL ENCOUNTER Qualifiers: Encounter type: initial encounter Qualified Code(s): S81.802A - Unspecified open wound, left lower leg, initial encounter (3) BPH (benign prostatic hyperplasia) Code(s): N40.0 - BENIGN PROSTATIC HYPERPLASIA WITHOUT LOWER URINRY TRACT SYMP (4) Diabetes Code(s): E11.9 - TYPE 2 DIABETES MELLITUS WITHOUT COMPLICATIONS (5) HTN (hypertension) Code(s): I10 - ESSENTIAL (PRIMARY) HYPERTENSION Qualifiers: Hypertension type: unspecified Qualified Code(s): I10 - Essential (primary) hypertension plan ct abx rest as per the team await for angio
[2020-01-09] MEDS ORDERED: LIDOCAINE HCL 1%, 10 MG/ML (20ML VIAL) ONE ×2 (16:09→18:03)
[2020-01-09] MEDS ORDERED: HEPARIN NA (PORCINE) 5,000 UNITS/ML 1ML VIAL ONE ×2 (16:09→18:02)
[2020-01-09] MEDS ORDERED: ONDANSETRON 4 MG/2 ML VIAL IVPUSH PRN ×2 (16:26→21:22)
[2020-01-09] MEDS ORDERED: MIDAZOLAM HCL 2 MG/2 ML SINGLE DOSE VIAL ONE (18:57)
[2020-01-09] MEDS ORDERED: LIDOCAINE HCL 1%, 10 MG/ML (20ML VIAL) NR ONE ×2 (19:16)
--- NOTE | 2020-01-09 20:13 | OP ---
Operative Note - Note: Operative Date: 01/09/20 Pre-Operative Diagnosis: Left foot ulcers on toes Operation: Aortogram, LLE angiogram, anterior tibial artery atherectomy with angioplasty Findings: 90% stenosis in ant tibial artery Post-Operative Diagnosis: Same as Pre-op Surgeon: Roderick Ye Anesthesia: MAC Estimated Blood Loss (mls): 50 Operative Report Dictated: Yes
[2020-01-09] MEDS ORDERED: hydrALAZINE HCL 20 MG/ML VIAL IVPUSH ONE (21:04)
[2020-01-09] MEDS: CLOPIDOGREL BISULFATE 75 MG TABLET (FP) PO SCH ×2 (21:20→21:38)
[2020-01-09] MEDS ORDERED: CLOPIDOGREL BISULFATE 75 MG TABLET (FP) ONE (21:25)
--- NOTE | 2020-01-09 21:47 | PN ---
Progress Note, Physician History of Present Illness: S/P angiogram LLE w/out complications - Current Medication List Current Medications: Active Medications Baclofen (Lioresal -) 10 mg PO TID [facility] Last Admin: 01/09/20 21:45 Dose: 10 mg Documented by: Carvedilol (Coreg -) 25 mg PO BID [facility] Last Admin: 01/09/20 21:44 Dose: 25 mg Documented by: Clopidogrel Bisulfate (Plavix -) 75 mg PO DAILY [facility] Last Admin: 01/09/20 21:38 Dose: 75 mg Documented by: Enoxaparin Sodium (Lovenox -) 40 mg SQ DAILY [facility] Fentanyl (Sublimaze Injection -) 25 mcg IVPUSH [id number] PRN PRN Reason: PAIN-PACU ORDER X 4 DOSES ONLY Finasteride (Proscar -) 5 mg PO DAILY [facility] Gabapentin (Neurontin -) 400 mg PO TID [facility] Hydrochlorothiazide (Hctz -) 25 mg PO DAILY [facility] Meropenem 1 gm/ Dextrose 100 mls @ 200 mls/hr IVPB Q8H-IV [facility] Insulin Aspart (Novolog Vial Sliding Scale -) 1 vial SQ ACHS [facility]; Protocol Latanoprost (Xalatan 0.005% Eye Drops -) 1 drop OU HS [facility] Losartan Potassium (Cozaar -) 100 mg PO DAILY [facility] Metformin HCl (Glucophage -) 500 mg PO DAILY@0700 [facility] Ondansetron HCl (Zofran Injection) 4 mg IVPUSH Q6H PRN PRN Reason: NAUSEA AND/OR VOMITING Pramipexole Dihydrochloride (Mirapex -) 0.5 mg PO BID [facility] - Objective Vital Signs: Vital Signs Temperature 98.0 F 01/09/20 21:25 Pulse Rate 80 01/09/20 21:25 Respiratory Rate 16 01/09/20 21:25 Blood Pressure 178/82 H 01/09/20 21:25 O2 Sat by Pulse Oximetry (%) 100 01/09/20 21:25 Neck: Yes: WNL, Supple Cardiovascular: Yes: WNL, Regular Rate and Rhythm Respiratory: Yes: WNL, Regular, CTA Bilaterally Gastrointestinal: Yes: WNL, Normal Bowel Sounds, Soft Extremities: Yes: Other (LLE w/ dressing) Labs: CBC, BMP 01/07/20 05:55 01/07/20 05:55 INR, PTT INR 1.00 (0.83-1.09) 01/06/20 19:40 Problem List - Problems (1) Leg wound, left Assessment/Plan: Cont IV meropenem Cont wound care Code(s): S81.802A - UNSPECIFIED OPEN WOUND, LEFT LOWER LEG, INITIAL ENCOUNTER Qualifiers: Encounter type: initial encounter Qualified Code(s): S81.802A - Unspecified open wound, left lower leg, initial encounter (2) PAD (peripheral artery disease) Assessment/Plan: S/p LLE angio ant tibial artery artherectomy w/ angioplasty Code(s): I73.9 - PERIPHERAL VASCULAR DISEASE, UNSPECIFIED (3) Peripheral neuropathy Assessment/Plan: Cont gabapentin Code(s): G62.9 - POLYNEUROPATHY, UNSPECIFIED (4) Diabetes Assessment/Plan: Cont sliding scale w/ coverage Cont metformin Code(s): E11.9 - TYPE 2 DIABETES MELLITUS WITHOUT COMPLICATIONS (5) HTN (hypertension) Assessment/Plan: BP stable Cont Hctz Code(s): I10 - ESSENTIAL (PRIMARY) HYPERTENSION Qualifiers: Hypertension type: unspecified Qualified Code(s): I10 - Essential (primary) hypertension
[2020-01-09] MEDS: LATANOPROST 0.005% OPHTH SOLN 2.5ML BOTTLE OU SCH (21:53)
[2020-01-10] MEDS: PRAMIPEXOLE DIHYDROCHLORIDE 0.5 MG TABLET PO SCH ×3 (00:45→21:26)
[2020-01-10] MEDS: GABAPENTIN 400 MG CAPSULE PO SCH ×4 (00:45→21:27)
[2020-01-10] MEDS ORDERED: MEROPENEM 1 GM VIAL (RESTRICTED TO ID) IVPB ONE ×3 (01:56→17:29)
[2020-01-10] MEDS ORDERED: DEXTROSE 5%-WATER 100 ML IVPB ONE ×3 (01:56→17:30)
[2020-01-10] MEDS: MEROPENEM 1 GM in DEXTROSE 5%-WATER 100 ML IVPB SCH ×3 (02:03→18:09)
[2020-01-10] MEDS: BACLOFEN 10 MG TABLET (FP) PO SCH ×3 (06:16→21:27)
[2020-01-10] MEDS: metFORMIN HCL 500 MG TABLET (FP) PO SCH (06:17)
[2020-01-10] MEDS: INSULIN SLIDING SCALE (NOVOLOG) 1 VIAL SQ SCH ×4 (06:36→21:28)
[2020-01-10 08:47] LABS: BASO % 0.8 % (0-2.0); EOS % 2.8 % (0-4.5); HEMATOCRIT 37.7 % (35.4-49); LYMPH % 14.1 % (8-40); MCH 30.8 pg (25.7-33.7); MCHC 34.4 g/dl (32.0-35.9); MEAN CELL VOLUME 89.5 fl (80-96); MEAN PLT VOLUME 9.5 fl (7.5-11.1); NEUT % 74.3 % (42.8-82.8); PLATELET COUNT 236 K/MM3 (134-434); RBC 4.22 M/mm3 (4.00-5.60); RDW 13.5 % (11.9-15.9); WHITE BLOOD COUNT 7.6 K/mm3 (4.0-10.0)
[2020-01-10 09:16] LABS: ALBUMIN 3.9 g/dl (3.4-5.0); BILIRUBIN,TOTAL 0.9 mg/dL (0.2-1); BLOOD UREA NITROGEN 16.2 mg/dL (7-18); CALCIUM 9.6 mg/dL (8.5-10.1); CREATININE 1.1 mg/dL (0.55-1.3); POTASSIUM 3.8 mmol/L (3.5-5.1); TOT PROT 9.7 g/dl (6.4-8.2)
[2020-01-10] MEDS ORDERED: PT OWN MED DRAWER 7, Y5N ONE (10:04)
[2020-01-10] MEDS: ENOXAPARIN NA (PORCINE) 40 MG/0.4 ML DISP.SYRIN SQ SCH (10:56)
[2020-01-10] MEDS: CARVEDILOL 25 MG TABLET (FP) PO SCH ×2 (10:56→21:27)
[2020-01-10] MEDS: LOSARTAN POTASSIUM 50 MG TABLET PO SCH (10:57)
[2020-01-10] MEDS: HYDROCHLOROTHIAZIDE 25 MG TABLET (FP) PO SCH (10:57)
[2020-01-10] MEDS: CLOPIDOGREL BISULFATE 75 MG TABLET (FP) PO SCH (10:58)
[2020-01-10] MEDS: FINASTERIDE 5 MG TABLET (FP) PO SCH (10:58)
--- NOTE | 2020-01-10 11:40 | PN ---
Progress Note (short form) - Note Progress Note: 74yo M s/p LLE angiogram and angioplasty. Pt states he is feeling well and that his leg feels a little better. Pt denies any pain or swelling in his groin around incision. Last Vital Signs Temp Pulse Resp BP Pulse Ox 97.9 F 81 18 159/92 99 01/10/20 06:00 01/10/20 06:00 01/10/20 06:00 01/10/20 06:00 01/10/20 06:00 CBC, BMP 01/10/20 08:04 01/10/20 08:04 PE: Gen: A&O X3 Resp: breathing comfortably Rt groin: incision is clean with no erythema or discharge, no palpable pulsatile masses. Problem List - Problems (1) Leg wound, left Assessment/Plan: Plan -pt appears to be doing well and should follow up with Dr. Ye in wound care clinic in 1-2 weeks as outpatient. Code(s): S81.802A - UNSPECIFIED OPEN WOUND, LEFT LOWER LEG, INITIAL ENCOUNTER Qualifiers: Encounter type: initial encounter Qualified Code(s): S81.802A - Unspecified open wound, left lower leg, initial encounter
--- NOTE | 2020-01-10 11:56 | PN ---
Progress Note, Physician - Current Medication List Current Medications: Active Medications Acetaminophen (Tylenol -) 650 mg PO Q6H PRN PRN Reason: PAIN 5-10 Baclofen (Lioresal -) 10 mg PO TID [facility] Last Admin: 01/10/20 06:16 Dose: 10 mg Documented by: Carvedilol (Coreg -) 25 mg PO BID [facility] Last Admin: 01/10/20 10:56 Dose: 25 mg Documented by: Clopidogrel Bisulfate (Plavix -) 75 mg PO DAILY [facility] Last Admin: 01/10/20 10:58 Dose: 75 mg Documented by: Enoxaparin Sodium (Lovenox -) 40 mg SQ DAILY [facility] Last Admin: 01/10/20 10:56 Dose: 40 mg Documented by: Finasteride (Proscar -) 5 mg PO DAILY [facility] Last Admin: 01/10/20 10:58 Dose: 5 mg Documented by: Gabapentin (Neurontin -) 400 mg PO TID [facility] Last Admin: 01/10/20 06:16 Dose: 400 mg Documented by: Hydrochlorothiazide (Hctz -) 25 mg PO DAILY [facility] Last Admin: 01/10/20 10:57 Dose: 25 mg Documented by: Meropenem 1 gm/ Dextrose 100 mls @ 200 mls/hr IVPB Q8H-IV [facility] Last Admin: 01/10/20 10:57 Dose: 200 mls/hr Documented by: Insulin Aspart (Novolog Vial Sliding Scale -) 1 vial SQ ACHS [facility]; Protocol Last Admin: 01/10/20 06:36 Dose: Not Given Documented by: Latanoprost (Xalatan 0.005% Eye Drops -) 1 drop OU HS [facility] Last Admin: 01/09/20 21:53 Dose: 1 drop Documented by: Losartan Potassium (Cozaar -) 100 mg PO DAILY [facility] Last Admin: 01/10/20 10:57 Dose: 100 mg Documented by: Metformin HCl (Glucophage -) 500 mg PO DAILY@0700 [facility] Last Admin: 01/10/20 06:17 Dose: 500 mg Documented by: Ondansetron HCl (Zofran Injection) 4 mg IVPUSH Q6H PRN PRN Reason: NAUSEA AND/OR VOMITING Pramipexole Dihydrochloride (Mirapex -) 0.5 mg PO BID [facility] Last Admin: 01/10/20 10:57 Dose: 0.5 mg Documented by: - Objective Vital Signs: Vital Signs Temperature 97.9 F 01/10/20 06:00 Pulse Rate 81 01/10/20 06:00 Respiratory Rate 18 01/10/20 06:00 Blood Pressure 159/92 01/10/20 06:00 O2 Sat by Pulse Oximetry (%) 99 01/10/20 06:00 Labs: CBC, BMP 01/10/20 08:04 01/10/20 08:04 INR, PTT INR 1.00 (0.83-1.09) 01/06/20 19:40
[2020-01-10] MEDS: ACETAMINOPHEN 325 MG TABLET (FP) PO PRN (12:23)
--- NOTE | 2020-01-10 15:44 | PN ---
Progress Note, Physician History of Present Illness: stable - Current Medication List Current Medications: Active Medications Acetaminophen (Tylenol -) 650 mg PO Q6H PRN PRN Reason: PAIN 5-10 Last Admin: 01/10/20 12:23 Dose: 650 mg Documented by: Baclofen (Lioresal -) 10 mg PO TID [facility] Last Admin: 01/10/20 15:03 Dose: 10 mg Documented by: Carvedilol (Coreg -) 25 mg PO BID [facility] Last Admin: 01/10/20 10:56 Dose: 25 mg Documented by: Clopidogrel Bisulfate (Plavix -) 75 mg PO DAILY [facility] Last Admin: 01/10/20 10:58 Dose: 75 mg Documented by: Enoxaparin Sodium (Lovenox -) 40 mg SQ DAILY [facility] Last Admin: 01/10/20 10:56 Dose: 40 mg Documented by: Finasteride (Proscar -) 5 mg PO DAILY [facility] Last Admin: 01/10/20 10:58 Dose: 5 mg Documented by: Gabapentin (Neurontin -) 400 mg PO TID [facility] Last Admin: 01/10/20 15:03 Dose: 400 mg Documented by: Hydrochlorothiazide (Hctz -) 25 mg PO DAILY [facility] Last Admin: 01/10/20 10:57 Dose: 25 mg Documented by: Meropenem 1 gm/ Dextrose 100 mls @ 200 mls/hr IVPB Q8H-IV [facility] Last Admin: 01/10/20 10:57 Dose: 200 mls/hr Documented by: Insulin Aspart (Novolog Vial Sliding Scale -) 1 vial SQ [facility]; Protocol Last Admin: 01/10/20 12:00 Dose: Not Given Documented by: Latanoprost (Xalatan 0.005% Eye Drops -) 1 drop OU HS [facility] Last Admin: 01/09/20 21:53 Dose: 1 drop Documented by: Losartan Potassium (Cozaar -) 100 mg PO DAILY [facility] Last Admin: 01/10/20 10:57 Dose: 100 mg Documented by: Metformin HCl (Glucophage -) 500 mg PO DAILY@0700 [facility] Last Admin: 01/10/20 06:17 Dose: 500 mg Documented by: Ondansetron HCl (Zofran Injection) 4 mg IVPUSH Q6H PRN PRN Reason: NAUSEA AND/OR VOMITING Pramipexole Dihydrochloride (Mirapex -) 0.5 mg PO BID [facility] Last Admin: 01/10/20 10:57 Dose: 0.5 mg Documented by: - Objective Vital Signs: Vital Signs Temperature 98 F 01/10/20 15:00 Pulse Rate 93 H 01/10/20 15:00 Respiratory Rate 18 01/10/20 15:00 Blood Pressure 147/89 01/10/20 15:00 O2 Sat by Pulse Oximetry (%) 99 01/10/20 15:00 Constitutional: Yes: No Distress HENT: Yes: Atraumatic Neck: Yes: Supple Cardiovascular: Yes: Regular Rate and Rhythm Respiratory: Yes: CTA Bilaterally Gastrointestinal: Yes: Normal Bowel Sounds Extremities: Yes: Other (LLEX CELLULITIS) Neurological: Yes: Alert, Oriented Labs: CBC, BMP 01/10/20 08:04 01/10/20 08:04 INR, PTT INR 1.00 (0.83-1.09) 01/06/20 19:40 Problem List - Problems (1) Infected wound Code(s): T14.8XXA - OTHER INJURY OF UNSPECIFIED BODY REGION, INITIAL ENCOUNTER; L08.9 - LOCAL INFECTION OF THE SKIN AND SUBCUTANEOUS TISSUE, UNSP (2) Leg wound, left Assessment/Plan: ON IV ABX WOUND CARE ID CONSULT ANGIO LLEX DONE Code(s): S81.802A - UNSPECIFIED OPEN WOUND, LEFT LOWER LEG, INITIAL ENCOUNTER Qualifiers: Encounter type: initial encounter Qualified Code(s): S81.802A - Unspecified open wound, left lower leg, initial encounter (3) BPH (benign prostatic hyperplasia) Code(s): N40.0 - BENIGN PROSTATIC HYPERPLASIA WITHOUT LOWER URINRY TRACT SYMP (4) Diabetes Assessment/Plan: BGMS INSULIN ORAL MEDS Code(s): E11.9 - TYPE 2 DIABETES MELLITUS WITHOUT COMPLICATIONS (5) HTN (hypertension) Assessment/Plan: ON MEDS MONITOR Code(s): I10 - ESSENTIAL (PRIMARY) HYPERTENSION Qualifiers: Hypertension type: unspecified Qualified Code(s): I10 - Essential (primary) hypertension Assessment/Plan COVERING FOR DR DASILVA TODAY
[2020-01-10] MEDS ORDERED: INSULIN (LEVEMIR) 100 UNITS/ML UNITS SQ ONE (21:14)
[2020-01-10] MEDS ORDERED: INSULIN (NOVOLOG) ASPART 100 UNITS/ML 10ML VIAL ONE (21:14)
[2020-01-10] MEDS: LATANOPROST 0.005% OPHTH SOLN 2.5ML BOTTLE OU SCH (21:28)
[2020-01-11] MEDS ORDERED: MEROPENEM 1 GM VIAL (RESTRICTED TO ID) IVPB ONE ×3 (01:44→17:13)
[2020-01-11] MEDS ORDERED: DEXTROSE 5%-WATER 100 ML IVPB ONE ×3 (01:44→17:13)
[2020-01-11] MEDS: MEROPENEM 1 GM in DEXTROSE 5%-WATER 100 ML IVPB SCH ×3 (01:47→18:21)
[2020-01-11] MEDS: ACETAMINOPHEN 325 MG TABLET (FP) PO PRN (01:56)
[2020-01-11] MEDS ORDERED: PT OWN MED DRAWER 7, Y5N ONE ×4 (06:04→21:30)
[2020-01-11] MEDS: BACLOFEN 10 MG TABLET (FP) PO SCH ×3 (06:38→21:44)
[2020-01-11] MEDS: metFORMIN HCL 500 MG TABLET (FP) PO SCH (06:38)
[2020-01-11] MEDS: GABAPENTIN 400 MG CAPSULE PO SCH ×3 (06:38→21:44)
[2020-01-11] MEDS: INSULIN SLIDING SCALE (NOVOLOG) 1 VIAL SQ SCH ×4 (06:38→21:45)
[2020-01-11] MEDS: CARVEDILOL 25 MG TABLET (FP) PO SCH ×2 (09:58→21:44)
[2020-01-11] MEDS: ENOXAPARIN NA (PORCINE) 40 MG/0.4 ML DISP.SYRIN SQ SCH (09:58)
[2020-01-11] MEDS: HYDROCHLOROTHIAZIDE 25 MG TABLET (FP) PO SCH (09:58)
[2020-01-11] MEDS: LOSARTAN POTASSIUM 50 MG TABLET PO SCH (09:59)
[2020-01-11] MEDS: CLOPIDOGREL BISULFATE 75 MG TABLET (FP) PO SCH (09:59)
[2020-01-11] MEDS: PRAMIPEXOLE DIHYDROCHLORIDE 0.5 MG TABLET PO SCH ×2 (09:59→21:44)
[2020-01-11] MEDS: FINASTERIDE 5 MG TABLET (FP) PO SCH (09:59)
--- NOTE | 2020-01-11 13:39 | PN ---
Progress Note, Physician History of Present Illness: stable no new issues feels much better legs feeling good - Current Medication List Current Medications: Active Medications Acetaminophen (Tylenol -) 650 mg PO Q6H PRN PRN Reason: PAIN 5-10 Last Admin: 01/11/20 01:56 Dose: 650 mg Documented by: Baclofen (Lioresal -) 10 mg PO TID [facility] Last Admin: 01/11/20 06:38 Dose: 10 mg Documented by: Carvedilol (Coreg -) 25 mg PO BID [facility] Last Admin: 01/11/20 09:58 Dose: 25 mg Documented by: Clopidogrel Bisulfate (Plavix -) 75 mg PO DAILY [facility] Last Admin: 01/11/20 09:59 Dose: 75 mg Documented by: Enoxaparin Sodium (Lovenox -) 40 mg SQ DAILY [facility] Last Admin: 01/11/20 09:58 Dose: 40 mg Documented by: Finasteride (Proscar -) 5 mg PO DAILY [facility] Last Admin: 01/11/20 09:59 Dose: 5 mg Documented by: Gabapentin (Neurontin -) 400 mg PO TID [facility] Last Admin: 01/11/20 06:38 Dose: 400 mg Documented by: Hydrochlorothiazide (Hctz -) 25 mg PO DAILY [facility] Last Admin: 01/11/20 09:58 Dose: 25 mg Documented by: Meropenem 1 gm/ Dextrose 100 mls @ 200 mls/hr IVPB Q8H-IV [facility] Last Admin: 01/11/20 10:05 Dose: 200 mls/hr Documented by: Insulin Aspart (Novolog Vial Sliding Scale -) 1 vial SQ ACHS [facility]; Protocol Last Admin: 01/11/20 11:38 Dose: Not Given Documented by: Latanoprost (Xalatan 0.005% Eye Drops -) 1 drop OU HS [facility] Last Admin: 01/10/20 21:28 Dose: 1 drop Documented by: Losartan Potassium (Cozaar -) 100 mg PO DAILY [facility] Last Admin: 01/11/20 09:59 Dose: 100 mg Documented by: Metformin HCl (Glucophage -) 500 mg PO DAILY@0700 [facility] Last Admin: 01/11/20 06:38 Dose: 500 mg Documented by: Ondansetron HCl (Zofran Injection) 4 mg IVPUSH Q6H PRN PRN Reason: NAUSEA AND/OR VOMITING Pramipexole Dihydrochloride (Mirapex -) 0.5 mg PO BID [facility] Last Admin: 01/11/20 09:59 Dose: 0.5 mg Documented by: - Objective Vital Signs: Vital Signs Temperature 98.1 F 01/11/20 10:00 Pulse Rate 93 H 01/11/20 10:00 Respiratory Rate 18 01/11/20 10:00 Blood Pressure 132/98 01/11/20 10:00 O2 Sat by Pulse Oximetry (%) 97 01/11/20 10:00 Constitutional: Yes: No Distress, Calm Cardiovascular: Yes: S1, S2 Respiratory: Yes: Regular, CTA Bilaterally Gastrointestinal: Yes: Normal Bowel Sounds, Soft Musculoskeletal: Yes: WNL Extremities: Yes: Other Wound/Incision: Yes: Dressing Dry and Intact Neurological: Yes: Alert, Oriented Psychiatric: Yes: Alert, Oriented Labs: CBC, BMP 01/10/20 08:04 01/10/20 08:04 INR, PTT INR 1.00 (0.83-1.09) 01/06/20 19:40 Assessment/Plan Problem List - Problems (1) Infected wound Code(s): T14.8XXA - OTHER INJURY OF UNSPECIFIED BODY REGION, INITIAL ENCOUNTER; L08.9 - LOCAL INFECTION OF THE SKIN AND SUBCUTANEOUS TISSUE, UNSP (2) Leg wound, left Code(s): S81.802A - UNSPECIFIED OPEN WOUND, LEFT LOWER LEG, INITIAL ENCOUNTER Qualifiers: Encounter type: initial encounter Qualified Code(s): S81.802A - Unspecified open wound, left lower leg, initial encounter (3) BPH (benign prostatic hyperplasia) Code(s): N40.0 - BENIGN PROSTATIC HYPERPLASIA WITHOUT LOWER URINRY TRACT SYMP (4) Diabetes Code(s): E11.9 - TYPE 2 DIABETES MELLITUS WITHOUT COMPLICATIONS (5) HTN (hypertension) Code(s): I10 - ESSENTIAL (PRIMARY) HYPERTENSION Qualifiers: Hypertension type: unspecified Qualified Code(s): I10 - Essential (primary) hypertension plan ct abx rest as per the team will d/w with wound care will switch to oral by monday
[2020-01-11] MEDS: LATANOPROST 0.005% OPHTH SOLN 2.5ML BOTTLE OU SCH (21:45)
--- NOTE | 2020-01-11 22:17 | PN ---
Progress Note, Physician History of Present Illness: No new complaints - Current Medication List Current Medications: Active Medications Acetaminophen (Tylenol -) 650 mg PO Q6H PRN PRN Reason: PAIN 5-10 Last Admin: 01/11/20 01:56 Dose: 650 mg Documented by: Baclofen (Lioresal -) 10 mg PO TID [facility] Last Admin: 01/11/20 21:44 Dose: 10 mg Documented by: Carvedilol (Coreg -) 25 mg PO BID [facility] Last Admin: 01/11/20 21:44 Dose: 25 mg Documented by: Clopidogrel Bisulfate (Plavix -) 75 mg PO DAILY [facility] Last Admin: 01/11/20 09:59 Dose: 75 mg Documented by: Enoxaparin Sodium (Lovenox -) 40 mg SQ DAILY [facility] Last Admin: 01/11/20 09:58 Dose: 40 mg Documented by: Finasteride (Proscar -) 5 mg PO DAILY [facility] Last Admin: 01/11/20 09:59 Dose: 5 mg Documented by: Gabapentin (Neurontin -) 400 mg PO TID [facility] Last Admin: 01/11/20 21:44 Dose: 400 mg Documented by: Hydrochlorothiazide (Hctz -) 25 mg PO DAILY [facility] Last Admin: 01/11/20 09:58 Dose: 25 mg Documented by: Meropenem 1 gm/ Dextrose 100 mls @ 200 mls/hr IVPB Q8H-IV [facility] Last Admin: 01/11/20 18:21 Dose: 200 mls/hr Documented by: Insulin Aspart (Novolog Vial Sliding Scale -) 1 vial SQ ACHS [facility]; Protocol Last Admin: 01/11/20 21:45 Dose: Not Given Documented by: Latanoprost (Xalatan 0.005% Eye Drops -) 1 drop OU HS [facility] Last Admin: 01/11/20 21:45 Dose: 1 drop Documented by: Losartan Potassium (Cozaar -) 100 mg PO DAILY [facility] Last Admin: 01/11/20 09:59 Dose: 100 mg Documented by: Metformin HCl (Glucophage -) 500 mg PO DAILY@0700 [facility] Last Admin: 01/11/20 06:38 Dose: 500 mg Documented by: Ondansetron HCl (Zofran Injection) 4 mg IVPUSH Q6H PRN PRN Reason: NAUSEA AND/OR VOMITING Pramipexole Dihydrochloride (Mirapex -) 0.5 mg PO BID [facility] Last Admin: 01/11/20 21:44 Dose: 0.5 mg Documented by: - Objective Vital Signs: Vital Signs Temperature 98.2 F 01/11/20 21:49 Pulse Rate 91 H 01/11/20 21:49 Respiratory Rate 18 01/11/20 21:49 Blood Pressure 143/100 01/11/20 21:49 O2 Sat by Pulse Oximetry (%) 97 01/11/20 21:49 Neck: Yes: WNL, Supple Cardiovascular: Yes: WNL, Regular Rate and Rhythm Respiratory: Yes: WNL, Regular, CTA Bilaterally Gastrointestinal: Yes: WNL, Normal Bowel Sounds, Soft Extremities: Yes: Other (LLE w/ dressing) Labs: CBC, BMP 01/10/20 08:04 01/10/20 08:04 INR, PTT INR 1.00 (0.83-1.09) 01/06/20 19:40 Problem List - Problems (1) Leg wound, left Assessment/Plan: Cont IV meropenem Cont wound care Code(s): S81.802A - UNSPECIFIED OPEN WOUND, LEFT LOWER LEG, INITIAL ENCOUNTER Qualifiers: Encounter type: initial encounter Qualified Code(s): S81.802A - Unspecified open wound, left lower leg, initial encounter (2) PAD (peripheral artery disease) Assessment/Plan: S/p LLE angio ant tibial artery artherectomy w/ angioplasty Code(s): I73.9 - PERIPHERAL VASCULAR DISEASE, UNSPECIFIED (3) Diabetes Assessment/Plan: Cont sliding scale w/ coverage Cont metformin Code(s): E11.9 - TYPE 2 DIABETES MELLITUS WITHOUT COMPLICATIONS (4) HTN (hypertension) Assessment/Plan: BP stable Cont Hctz Code(s): I10 - ESSENTIAL (PRIMARY) HYPERTENSION Qualifiers: Hypertension type: unspecified Qualified Code(s): I10 - Essential (primary) hypertension (5) BPH (benign prostatic hyperplasia) Assessment/Plan: Cont proscar Code(s): N40.0 - BENIGN PROSTATIC HYPERPLASIA WITHOUT LOWER URINRY TRACT SYMP (6) Peripheral neuropathy Code(s): G62.9 - POLYNEUROPATHY, UNSPECIFIED
[2020-01-12] MEDS ORDERED: DEXTROSE 5%-WATER 100 ML IVPB ONE ×3 (02:24→18:09)
[2020-01-12] MEDS ORDERED: MEROPENEM 1 GM VIAL (RESTRICTED TO ID) IVPB ONE ×3 (02:24→18:09)
[2020-01-12] MEDS: MEROPENEM 1 GM in DEXTROSE 5%-WATER 100 ML IVPB SCH ×3 (02:28→18:33)
[2020-01-12] MEDS ORDERED: PT OWN MED DRAWER 7, Y5N ONE ×3 (06:31→21:00)
[2020-01-12] MEDS: metFORMIN HCL 500 MG TABLET (FP) PO SCH (06:40)
[2020-01-12] MEDS: GABAPENTIN 400 MG CAPSULE PO SCH ×3 (06:40→22:34)
[2020-01-12] MEDS: BACLOFEN 10 MG TABLET (FP) PO SCH ×3 (06:40→22:34)
[2020-01-12] MEDS: INSULIN SLIDING SCALE (NOVOLOG) 1 VIAL SQ SCH ×4 (06:43→22:34)
--- NOTE | 2020-01-12 08:28 | PN ---
Progress Note, Physician - Current Medication List Current Medications: Active Medications Acetaminophen (Tylenol -) 650 mg PO Q6H PRN PRN Reason: PAIN 5-10 Last Admin: 01/11/20 01:56 Dose: 650 mg Documented by: Baclofen (Lioresal -) 10 mg PO TID [facility] Last Admin: 01/12/20 06:40 Dose: 10 mg Documented by: Carvedilol (Coreg -) 25 mg PO BID [facility] Last Admin: 01/11/20 21:44 Dose: 25 mg Documented by: Clopidogrel Bisulfate (Plavix -) 75 mg PO DAILY [facility] Last Admin: 01/11/20 09:59 Dose: 75 mg Documented by: Enoxaparin Sodium (Lovenox -) 40 mg SQ DAILY [facility] Last Admin: 01/11/20 09:58 Dose: 40 mg Documented by: Finasteride (Proscar -) 5 mg PO DAILY [facility] Last Admin: 01/11/20 09:59 Dose: 5 mg Documented by: Gabapentin (Neurontin -) 400 mg PO TID [facility] Last Admin: 01/12/20 06:40 Dose: 400 mg Documented by: Hydrochlorothiazide (Hctz -) 25 mg PO DAILY [facility] Last Admin: 01/11/20 09:58 Dose: 25 mg Documented by: Meropenem 1 gm/ Dextrose 100 mls @ 200 mls/hr IVPB Q8H-IV [facility] Last Admin: 01/12/20 02:28 Dose: 200 mls/hr Documented by: Insulin Aspart (Novolog Vial Sliding Scale -) 1 vial SQ [facility]; Protocol Last Admin: 01/12/20 06:43 Dose: Not Given Documented by: Latanoprost (Xalatan 0.005% Eye Drops -) 1 drop OU HS [facility] Last Admin: 01/11/20 21:45 Dose: 1 drop Documented by: Losartan Potassium (Cozaar -) 100 mg PO DAILY [facility] Last Admin: 01/11/20 09:59 Dose: 100 mg Documented by: Metformin HCl (Glucophage -) 500 mg PO DAILY@0700 [facility] Last Admin: 01/12/20 06:40 Dose: 500 mg Documented by: Ondansetron HCl (Zofran Injection) 4 mg IVPUSH Q6H PRN PRN Reason: NAUSEA AND/OR VOMITING Pramipexole Dihydrochloride (Mirapex -) 0.5 mg PO BID [facility] Last Admin: 01/11/20 21:44 Dose: 0.5 mg Documented by: - Objective Vital Signs: Vital Signs Temperature 98.2 F 01/11/20 21:49 Pulse Rate 91 H 01/11/20 21:49 Respiratory Rate 18 01/11/20 21:49 Blood Pressure 143/100 01/11/20 21:49 O2 Sat by Pulse Oximetry (%) 97 01/11/20 21:49 Labs: CBC, BMP 01/10/20 08:04 01/10/20 08:04 INR, PTT INR 1.00 (0.83-1.09) 01/06/20 19:40
[2020-01-12] MEDS: CARVEDILOL 25 MG TABLET (FP) PO SCH ×2 (10:16→22:34)
[2020-01-12] MEDS: HYDROCHLOROTHIAZIDE 25 MG TABLET (FP) PO SCH (10:16)
[2020-01-12] MEDS: PRAMIPEXOLE DIHYDROCHLORIDE 0.5 MG TABLET PO SCH ×2 (10:16→22:34)
[2020-01-12] MEDS: LOSARTAN POTASSIUM 50 MG TABLET PO SCH (10:17)
[2020-01-12] MEDS: ENOXAPARIN NA (PORCINE) 40 MG/0.4 ML DISP.SYRIN SQ SCH (10:17)
[2020-01-12] MEDS: CLOPIDOGREL BISULFATE 75 MG TABLET (FP) PO SCH (10:18)
[2020-01-12] MEDS: FINASTERIDE 5 MG TABLET (FP) PO SCH (10:18)
--- NOTE | 2020-01-12 19:44 | PN ---
Progress Note, Physician History of Present Illness: No new complaints - Current Medication List Current Medications: Active Medications Acetaminophen (Tylenol -) 650 mg PO Q6H PRN PRN Reason: PAIN 5-10 Last Admin: 01/11/20 01:56 Dose: 650 mg Documented by: Baclofen (Lioresal -) 10 mg PO TID [facility] Last Admin: 01/12/20 14:37 Dose: 10 mg Documented by: Carvedilol (Coreg -) 25 mg PO BID [facility] Last Admin: 01/12/20 10:16 Dose: 25 mg Documented by: Clopidogrel Bisulfate (Plavix -) 75 mg PO DAILY [facility] Last Admin: 01/12/20 10:18 Dose: 75 mg Documented by: Enoxaparin Sodium (Lovenox -) 40 mg SQ DAILY [facility] Last Admin: 01/12/20 10:17 Dose: 40 mg Documented by: Finasteride (Proscar -) 5 mg PO DAILY [facility] Last Admin: 01/12/20 10:18 Dose: 5 mg Documented by: Gabapentin (Neurontin -) 400 mg PO TID [facility] Last Admin: 01/12/20 14:37 Dose: 400 mg Documented by: Hydrochlorothiazide (Hctz -) 25 mg PO DAILY [facility] Last Admin: 01/12/20 10:16 Dose: 25 mg Documented by: Meropenem 1 gm/ Dextrose 100 mls @ 200 mls/hr IVPB Q8H-IV [facility] Last Admin: 01/12/20 18:33 Dose: 200 mls/hr Documented by: Insulin Aspart (Novolog Vial Sliding Scale -) 1 vial SQ ACHS [facility]; Protocol Last Admin: 01/12/20 17:23 Dose: Not Given Documented by: Latanoprost (Xalatan 0.005% Eye Drops -) 1 drop OU HS [facility] Last Admin: 01/11/20 21:45 Dose: 1 drop Documented by: Losartan Potassium (Cozaar -) 100 mg PO DAILY [facility] Last Admin: 01/12/20 10:17 Dose: 100 mg Documented by: Metformin HCl (Glucophage -) 500 mg PO DAILY@0700 [facility] Last Admin: 01/12/20 06:40 Dose: 500 mg Documented by: Ondansetron HCl (Zofran Injection) 4 mg IVPUSH Q6H PRN PRN Reason: NAUSEA AND/OR VOMITING Pramipexole Dihydrochloride (Mirapex -) 0.5 mg PO BID [facility] Last Admin: 01/12/20 10:16 Dose: 0.5 mg Documented by: - Objective Vital Signs: Vital Signs Temperature 97.6 F 01/12/20 18:00 Pulse Rate 89 01/12/20 18:00 Respiratory Rate 18 01/12/20 18:00 Blood Pressure 126/83 01/12/20 18:00 O2 Sat by Pulse Oximetry (%) 98 01/12/20 18:00 Neck: Yes: WNL, Supple Cardiovascular: Yes: WNL, Regular Rate and Rhythm Respiratory: Yes: WNL, Regular, CTA Bilaterally Gastrointestinal: Yes: WNL, Normal Bowel Sounds, Soft Extremities: Yes: Other (LLE w/ dressing) Labs: CBC, BMP 01/10/20 08:04 01/10/20 08:04 INR, PTT INR 1.00 (0.83-1.09) 01/06/20 19:40 Problem List - Problems (1) Leg wound, left Assessment/Plan: Cont IV meropenem Cont wound care Possible change to PO antibxs in am ?DC planning for am Code(s): S81.802A - UNSPECIFIED OPEN WOUND, LEFT LOWER LEG, INITIAL ENCOUNTER Qualifiers: Encounter type: initial encounter Qualified Code(s): S81.802A - Unspecified open wound, left lower leg, initial encounter (2) PAD (peripheral artery disease) Assessment/Plan: S/p LLE angio ant tibial artery artherectomy w/ angioplasty Code(s): I73.9 - PERIPHERAL VASCULAR DISEASE, UNSPECIFIED (3) Peripheral neuropathy Assessment/Plan: Cont gabapentin Code(s): G62.9 - POLYNEUROPATHY, UNSPECIFIED (4) Diabetes Assessment/Plan: Cont sliding scale w/ coverage Cont metformin Code(s): E11.9 - TYPE 2 DIABETES MELLITUS WITHOUT COMPLICATIONS (5) HTN (hypertension) Assessment/Plan: BP stable Cont Hctz Code(s): I10 - ESSENTIAL (PRIMARY) HYPERTENSION Qualifiers: Hypertension type: unspecified Qualified Code(s): I10 - Essential (primary) hypertension
[2020-01-12] MEDS: LATANOPROST 0.005% OPHTH SOLN 2.5ML BOTTLE OU SCH (22:34)
[2020-01-13] MEDS ORDERED: MEROPENEM 1 GM VIAL (RESTRICTED TO ID) IVPB ONE ×2 (01:36→09:36)
[2020-01-13] MEDS ORDERED: DEXTROSE 5%-WATER 100 ML IVPB ONE ×2 (01:36→09:37)
[2020-01-13] MEDS: MEROPENEM 1 GM in DEXTROSE 5%-WATER 100 ML IVPB SCH ×2 (01:47→10:13)
[2020-01-13] MEDS: metFORMIN HCL 500 MG TABLET (FP) PO SCH (06:28)
[2020-01-13] MEDS: GABAPENTIN 400 MG CAPSULE PO SCH ×2 (06:28→14:49)
[2020-01-13] MEDS: BACLOFEN 10 MG TABLET (FP) PO SCH ×2 (06:28→14:49)
[2020-01-13] MEDS: INSULIN SLIDING SCALE (NOVOLOG) 1 VIAL SQ SCH ×3 (06:29→16:37)
[2020-01-13] MEDS ORDERED: PT OWN MED DRAWER 7, Y5N ONE (09:37)
[2020-01-13] MEDS: LOSARTAN POTASSIUM 50 MG TABLET PO SCH (10:14)
[2020-01-13] MEDS: CARVEDILOL 25 MG TABLET (FP) PO SCH (10:14)
[2020-01-13] MEDS: HYDROCHLOROTHIAZIDE 25 MG TABLET (FP) PO SCH (10:14)
[2020-01-13] MEDS: CLOPIDOGREL BISULFATE 75 MG TABLET (FP) PO SCH (10:14)
[2020-01-13] MEDS: PRAMIPEXOLE DIHYDROCHLORIDE 0.5 MG TABLET PO SCH (10:15)
[2020-01-13] MEDS: FINASTERIDE 5 MG TABLET (FP) PO SCH (10:15)
[2020-01-13] MEDS: ENOXAPARIN NA (PORCINE) 40 MG/0.4 ML DISP.SYRIN SQ SCH (10:24)
--- NOTE | 2020-01-13 14:34 | PN ---
Progress Note, Physician History of Present Illness: patient stable no new issues - Current Medication List Current Medications: Active Medications Acetaminophen (Tylenol -) 650 mg PO Q6H PRN PRN Reason: PAIN 5-10 Last Admin: 01/11/20 01:56 Dose: 650 mg Documented by: Baclofen (Lioresal -) 10 mg PO TID [facility] Last Admin: 01/13/20 06:28 Dose: 10 mg Documented by: Carvedilol (Coreg -) 25 mg PO BID [facility] Last Admin: 01/13/20 10:14 Dose: 25 mg Documented by: Clopidogrel Bisulfate (Plavix -) 75 mg PO DAILY [facility] Last Admin: 01/13/20 10:14 Dose: 75 mg Documented by: Enoxaparin Sodium (Lovenox -) 40 mg SQ DAILY [facility] Last Admin: 01/13/20 10:24 Dose: 40 mg Documented by: Finasteride (Proscar -) 5 mg PO DAILY [facility] Last Admin: 01/13/20 10:15 Dose: 5 mg Documented by: Gabapentin (Neurontin -) 400 mg PO TID [facility] Last Admin: 01/13/20 06:28 Dose: 400 mg Documented by: Hydrochlorothiazide (Hctz -) 25 mg PO DAILY [facility] Last Admin: 01/13/20 10:14 Dose: 25 mg Documented by: Meropenem 1 gm/ Dextrose 100 mls @ 200 mls/hr IVPB Q8H-IV [facility] Last Admin: 01/13/20 10:13 Dose: 200 mls/hr Documented by: Insulin Aspart (Novolog Vial Sliding Scale -) 1 vial SQ ACHS [facility]; Protocol Last Admin: 01/13/20 11:14 Dose: Not Given Documented by: Latanoprost (Xalatan 0.005% Eye Drops -) 1 drop OU HS [facility] Last Admin: 01/12/20 22:34 Dose: 1 drop Documented by: Losartan Potassium (Cozaar -) 100 mg PO DAILY [facility] Last Admin: 01/13/20 10:14 Dose: 100 mg Documented by: Metformin HCl (Glucophage -) 500 mg PO DAILY@0700 [facility] Last Admin: 01/13/20 06:28 Dose: 500 mg Documented by: Ondansetron HCl (Zofran Injection) 4 mg IVPUSH Q6H PRN PRN Reason: NAUSEA AND/OR VOMITING Pramipexole Dihydrochloride (Mirapex -) 0.5 mg PO BID [facility] Last Admin: 01/13/20 10:15 Dose: 0.5 mg Documented by: - Objective Vital Signs: Vital Signs Temperature 97.3 F L 01/13/20 09:31 Pulse Rate 91 H 01/13/20 09:31 Respiratory Rate 16 01/13/20 09:31 Blood Pressure 112/80 01/13/20 09:31 O2 Sat by Pulse Oximetry (%) 96 01/13/20 09:31 Constitutional: Yes: No Distress, Calm Respiratory: Yes: Regular, CTA Bilaterally Gastrointestinal: Yes: Normal Bowel Sounds, Soft Musculoskeletal: Yes: WNL Extremities: Yes: Other Neurological: Yes: Alert, Oriented Psychiatric: Yes: Alert, Oriented Labs: CBC, BMP 01/10/20 08:04 01/10/20 08:04 INR, PTT INR 1.00 (0.83-1.09) 01/06/20 19:40 Assessment/Plan Problem List - Problems (1) Infected wound Code(s): T14.8XXA - OTHER INJURY OF UNSPECIFIED BODY REGION, INITIAL ENCOUNTER; L08.9 - LOCAL INFECTION OF THE SKIN AND SUBCUTANEOUS TISSUE, UNSP (2) Leg wound, left Code(s): S81.802A - UNSPECIFIED OPEN WOUND, LEFT LOWER LEG, INITIAL ENCOUNTER Qualifiers: Encounter type: initial encounter Qualified Code(s): S81.802A - Unspecified open wound, left lower leg, initial encounter (3) BPH (benign prostatic hyperplasia) Code(s): N40.0 - BENIGN PROSTATIC HYPERPLASIA WITHOUT LOWER URINRY TRACT SYMP (4) Diabetes Code(s): E11.9 - TYPE 2 DIABETES MELLITUS WITHOUT COMPLICATIONS (5) HTN (hypertension) Code(s): I10 - ESSENTIAL (PRIMARY) HYPERTENSION Qualifiers: Hypertension type: unspecified Qualified Code(s): I10 - Essential (primary) hypertension plan patient can be changed to oral cephalosporins wound care rest as per the team follow up in wound care
[2020-01-13] MEDS: ACETAMINOPHEN 325 MG TABLET (FP) PO PRN (14:50)
[2020-01-13 15:22] VITALS: BP 135/78; PULSE 75; TEMP 98
--- NOTE | 2020-01-16 09:26 | OP ---
DATE OF OPERATION: 01/09/2020 PREOPERATIVE DIAGNOSIS: Left toe ulcers. POSTOPERATIVE DIAGNOSIS: Left toe ulcers. PROCEDURE: Aortogram, left lower extremity angiogram, anterior tibial artery atherectomy with angioplasty. SURGEON: Roderick Bee DO ANESTHESIA: Fractional. BLOOD LOSS: 50 mL. The patient is a 34-year-old male that has ulcers on his left great and first toe. 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 Patient was cleared by Cardiology and Medicine. Patient was felt to be COVID-19 negative. Patient then came in through ambulatory surgery, and patient was consented for the procedure understanding all risks, benefits, and alternatives, understanding the risk of bleeding, infection, clot formation, and a loss of limb. We then brought the patient into the OR, and the patient was laid on the operating room table. We then went ahead and prepped and draped the right and left groin in a sterile surgical manner. We then injected 10 mL of lidocaine 1% over the right common femoral artery. We then took a micropuncture needle and punctured the right common femoral artery. Micropuncture wire inserted. Micropuncture sheath was inserted, and a traditional 5-[place] sheath was inserted. We then brought a 0.035 floppy guidewire up into the aorta followed by an Omni Flush catheter. We then shot an angiogram via hand injection showing that the aorta and iliac arteries were without disease. We then used a 0.0035 floppy guidewire up and over to the left common femoral artery, and Omni Flush catheter followed. We then shot an angiogram of the left lower extremity showing that the common femoral artery, profunda, and the SFA were patent. The popliteal artery was patent. The TB trunk was patent, but there was significant disease in the AT going down with distal AT being occluded. We also found that the peroneal artery and the PT were patent going into the foot. At this point, we placed a 0.035 stiff guidewire into the SFA. We removed the Omni Flush catheter. We then placed a 6 x 45 Crossover sheath. Heparin 5000 units were administered to patient. We then went ahead and brought our 0.035 stiff guidewire down to the tibial artery followed by Quick-Cross catheter, and we were able to selectively cannulate into the anterior tibial artery and place the wire down to about the ankle. We then went ahead and switched over to a ViperWire. We then went ahead and used a CSI orbital atherectomy device, and we performed orbital atherectomy of the proximal anterior tibial artery in the mid anterior tibial artery under low and medium. We then went ahead and used a 2.5 x 200 balloon and performed an angioplasty of the entire anterior tibial artery. Completion angiogram now showed that the anterior artery was patent with good flow into the foot, giving off good collaterals in the foot. At this point, we decided that no more intervention was needed. Patient had good runoff into the foot. We brought our sheath up and over. A StarClose device was successfully deployed over the right common femoral artery. Pressure was held for 5 minutes. After there was no more bleeding, the areas were then dried, and Dermabond was placed. The patient tolerated the procedure well without any complications. Patient transferred to PACU in stable condition. RODERICK BEE DO NP/[id number]
== END 2020-01-13 17:09 | disposition home or self-care (01) | DRG 272 ==
LOC: JER 15:55 → JERBED 20:42 → J6S 01-08 00:28 → J5S 01-09 16:38
PROVIDERS: ADMIT Internal Medicine; ATTEND Internal Medicine
PROC: 047Q3ZZ Dilation of Left Anterior Tibial Artery, Percutaneous Approach (ICD-10-PCS; 2020-01-09)
PROC: 3E05317 Introduction of Other Thrombolytic into Peripheral Artery, Percutaneous Approach (ICD-10-PCS; 2020-01-09)
PROC: B40GYZZ Plain Radiography of Left Lower Extremity Arteries using Other Contrast (ICD-10-PCS; 2020-01-09)
PROC: B41DZZZ Fluoroscopy of Aorta and Bilateral Lower Extremity Arteries (ICD-10-PCS; 2020-01-09)
PROC: 04CQ3ZZ Extirpation of Matter from Left Anterior Tibial Artery, Percutaneous Approach (ICD-10-PCS; principal; 2020-01-09 13:30)
DX: E11.51 Type 2 diabetes mellitus with diabetic peripheral angiopathy without gangrene (principal); E11.621 Type 2 diabetes mellitus with foot ulcer; L97.529 Non-pressure chronic ulcer of other part of left foot with unspecified severity; E11.42 Type 2 diabetes mellitus with diabetic polyneuropathy; I10 Essential (primary) hypertension; E78.5 Hyperlipidemia, unspecified; N40.0 Benign prostatic hyperplasia without lower urinary tract symptoms; Z88.0 Allergy status to penicillin; E11.21 Type 2 diabetes mellitus with diabetic nephropathy
CPT/HCPCS: 36415; 73610-TC-LT-FY; 73630-TC-LT; 76000-TC-FY; 80053; 82962; 85025; 85610; 85730; 86850; 86900; 86901; 87040; 93005; 93010; 94760; 99285-25; J0475; J1644; U0003

== ENCOUNTER 2020-05-12 09:15 | Inpatient (IN) | payer OTHER ==
[2020-05-12 10:31] LABS: EOS % 1.6 % (0-4.5); HEMATOCRIT 31.1 % (35.4-49); LYMPH % 28.7 % (8-40); MCH 29.3 pg (25.7-33.7); MCHC 32.2 g/dl (32.0-35.9); MEAN PLT VOLUME 9.6 fl (7.5-11.1); MONO % 11.6 % (3.8-10.2); NEUT % 57.1 % (42.8-82.8); PLATELET COUNT 255 K/MM3 (134-434); RBC 3.41 M/mm3 (4.00-5.60); RDW 12.8 % (11.9-15.9); WHITE BLOOD COUNT 7.4 K/mm3 (4.0-10.8)
[2020-05-12 10:39] LABS: ALBUMIN 2.9 g/dl (3.4-5.0); BILIRUBIN,TOTAL 0.7 mg/dl (0.2-1); CALCIUM 8.7 mg/dl (8.5-10); CREATININE 1.9 mg/dl (0.55-1.3); TOT PROT 8.3 g/dl (6.4-8.2)
[2020-05-12 10:42] LABS: POTASSIUM 4.3 mmol/L (3.5-5.1)
[2020-05-12] MEDS ORDERED: MEROPENEM 1 GM in DEXTROSE 5%-WATER 100 ML IVPB ONE (11:12)
[2020-05-12 13:50] VITALS: BMI 30.3
[2020-05-12] MEDS ORDERED: MORPHINE SULFATE 2 MG/ML VIAL IVPUSH ONE (16:22)
[2020-05-12] MEDS: INSULIN SLIDING SCALE (NOVOLOG) 1 VIAL SQ SCH ×2 (17:12→21:48)
[2020-05-12] MEDS ORDERED: DOCUSATE SODIUM 100 MG CAPSULE (FP) PO PRN (20:14)
[2020-05-12] MEDS: oxyCODONE HCL 5 MG TABLET PO PRN (20:30)
[2020-05-12] MEDS: ACETAMINOPHEN 325 MG TABLET (FP) PO PRN (20:31)
[2020-05-12] MEDS ORDERED: SODIUM CHLORIDE 100 ML IVPB ONE (21:34)
[2020-05-12] MEDS ORDERED: MEROPENEM 1 GM VIAL (RESTRICTED TO ID) IVPB ONE (21:34)
[2020-05-12] MEDS: MEROPENEM 1 GM in SODIUM CHLORIDE 100 ML IVPB SCH (21:48)
[2020-05-12] MEDS: GABAPENTIN 400 MG CAPSULE PO SCH (21:48)
[2020-05-12] MEDS: CARVEDILOL 25 MG TABLET (FP) PO SCH (21:49)
[2020-05-12] MEDS: SILVER SULFADIAZINE 1% TOP CREAM 400 GM JAR TP SCH (21:49)
[2020-05-12] MEDS: HEPARIN NA (PORCINE) 5,000 UNITS/ML 1ML VIAL SQ SCH (22:57)
[2020-05-13] MEDS: BACLOFEN 10 MG TABLET (FP) PO SCH ×4 (03:29→22:12)
[2020-05-13] MEDS ORDERED: PT OWN MED DRAWER 7, Y5N ONE ×3 (05:27→21:40)
[2020-05-13] MEDS: GABAPENTIN 400 MG CAPSULE PO SCH ×3 (05:46→21:47)
[2020-05-13] MEDS: HEPARIN NA (PORCINE) 5,000 UNITS/ML 1ML VIAL SQ SCH ×3 (05:46→21:47)
[2020-05-13] MEDS: INSULIN SLIDING SCALE (NOVOLOG) 1 VIAL SQ SCH ×4 (06:59→21:48)
[2020-05-13 08:18] LABS: BASO % 0.8 % (0-2.0); EOS % 0.8 % (0-4.5); HEMATOCRIT 27.9 % (35.4-49); HEMOGLOBIN 9.1 GM/dl (11.7-16.9); LYMPH % 14.2 % (8-40); MCH 29.4 pg (25.7-33.7); MCHC 32.4 g/dl (32.0-35.9); MEAN CELL VOLUME 90.5 fl (80-96); MEAN PLT VOLUME 9.8 fl (7.5-11.1); MONO % 7.4 % (3.8-10.2); NEUT % 76.8 % (42.8-82.8); PLATELET COUNT 262 K/MM3 (134-434); RBC 3.08 M/mm3 (4.00-5.60); RDW 12.6 % (11.9-15.9); WHITE BLOOD COUNT 8.1 K/mm3 (4.0-10.8)
[2020-05-13 08:27] LABS: ACTIVATED PTT 28.8 SECONDS (25.2-36.5)
[2020-05-13 08:29] LABS: ALBUMIN 2.6 g/dl (3.4-5.0); BILIRUBIN,TOTAL 0.8 mg/dl (0.2-1); CALCIUM 8.5 mg/dl (8.5-10); CREATININE 1.3 mg/dl (0.55-1.3); MAGNESIUM 1.7 mg/dL (1.8-2.4); POTASSIUM 4.2 mmol/L (3.5-5.1); TOT PROT 7.2 g/dl (6.4-8.2)
[2020-05-13 08:31] LABS: INR 1.4 (0.82-1.09); PROTHROMBIN TIME (PATIENT) 15.3 SEC (10.2-13.0)
[2020-05-13] MEDS ORDERED: LOSARTAN 50MG/HCTZ 12.5MG 1 TAB PO SCH (10:00)
[2020-05-13] MEDS ORDERED: PATIENT'S OWN MEDICATION (NON-FORMULARY) (Losartan/Hydrochlorothiazide [Losartan-Hctz 100- PO SCH (10:00)
[2020-05-13] MEDS ORDERED: PATIENT'S OWN MEDICATION (NON-FORMULARY) (Linaclotide [Linzess] 290 MCG Capsule) PO SCH (10:00)
[2020-05-13] MEDS ORDERED: MEROPENEM 1 GM VIAL (RESTRICTED TO ID) IVPB ONE ×2 (11:11→21:40)
[2020-05-13] MEDS ORDERED: SODIUM CHLORIDE 100 ML IVPB ONE ×2 (11:11→21:41)
[2020-05-13] MEDS: FINASTERIDE 5 MG TABLET (FP) PO SCH (11:23)
[2020-05-13] MEDS: LOSARTAN POTASSIUM 50 MG TABLET PO SCH (11:23)
[2020-05-13] MEDS: SILVER SULFADIAZINE 1% TOP CREAM 400 GM JAR TP SCH (11:23)
[2020-05-13] MEDS: MEROPENEM 1 GM in SODIUM CHLORIDE 100 ML IVPB SCH ×2 (11:23→21:47)
[2020-05-13] MEDS: CARVEDILOL 25 MG TABLET (FP) PO SCH ×2 (11:23→21:47)
[2020-05-13] MEDS: oxyCODONE HCL 5 MG TABLET PO PRN (17:54)
[2020-05-14] MEDS: oxyCODONE HCL 5 MG TABLET PO PRN ×2 (00:21→10:42)
[2020-05-14] MEDS ORDERED: PT OWN MED DRAWER 7, Y5N ONE (00:39)
[2020-05-14] MEDS: BACLOFEN 10 MG TABLET (FP) PO SCH ×3 (06:02→21:31)
[2020-05-14] MEDS: HEPARIN NA (PORCINE) 5,000 UNITS/ML 1ML VIAL SQ SCH ×3 (06:03→22:38)
[2020-05-14] MEDS: GABAPENTIN 400 MG CAPSULE PO SCH ×3 (06:03→21:31)
[2020-05-14] MEDS ORDERED: SODIUM CHLORIDE 100 ML IVPB ONE ×2 (08:54→21:21)
[2020-05-14] MEDS ORDERED: MEROPENEM 1 GM VIAL (RESTRICTED TO ID) IVPB ONE ×2 (08:54→21:21)
[2020-05-14] MEDS: CARVEDILOL 25 MG TABLET (FP) PO SCH ×2 (10:36→21:31)
[2020-05-14] MEDS: MEROPENEM 1 GM in SODIUM CHLORIDE 100 ML IVPB SCH ×2 (10:36→21:32)
[2020-05-14] MEDS: LOSARTAN POTASSIUM 50 MG TABLET PO SCH (10:36)
[2020-05-14] MEDS: SILVER SULFADIAZINE 1% TOP CREAM 400 GM JAR TP SCH (10:36)
[2020-05-14] MEDS: FINASTERIDE 5 MG TABLET (FP) PO SCH (10:36)
[2020-05-14] MEDS: ACETAMINOPHEN 325 MG TABLET (FP) PO PRN (10:42)
[2020-05-14] MEDS: INSULIN SLIDING SCALE (NOVOLOG) 1 VIAL SQ SCH ×2 (11:46→22:00)
[2020-05-14] MEDS ORDERED: MORPHINE SULFATE 2 MG/ML VIAL IVPUSH ONE (13:41)
[2020-05-14] MEDS ORDERED: MORPHINE SULFATE 2 MG/ML VIAL ONE ×2 (13:42→13:58)
[2020-05-14] MEDS ORDERED: morphine CARPU-JECT 2 MG/1 ML DISP.SYRIN IVPUSH ONE (13:57)
[2020-05-15] MEDS: BACLOFEN 10 MG TABLET (FP) PO SCH ×2 (06:38→17:26)
[2020-05-15] MEDS: GABAPENTIN 400 MG CAPSULE PO SCH ×2 (06:38→17:26)
[2020-05-15] MEDS: HEPARIN NA (PORCINE) 5,000 UNITS/ML 1ML VIAL SQ SCH ×2 (06:38→17:23)
[2020-05-15] MEDS: INSULIN SLIDING SCALE (NOVOLOG) 1 VIAL SQ SCH ×5 (06:39→17:44)
[2020-05-15] MEDS: oxyCODONE HCL 5 MG TABLET PO PRN (06:42)
[2020-05-15] MEDS: ACETAMINOPHEN 325 MG TABLET (FP) PO PRN (06:43)
[2020-05-15] MEDS ORDERED: MEROPENEM 1 GM VIAL (RESTRICTED TO ID) IVPB ONE (09:49)
[2020-05-15] MEDS ORDERED: SODIUM CHLORIDE 100 ML IVPB ONE (09:49)
[2020-05-15 10:09] VITALS: BP 128/66; PULSE 82; TEMP 99.1
[2020-05-15] MEDS: FINASTERIDE 5 MG TABLET (FP) PO SCH (10:11)
[2020-05-15] MEDS: LOSARTAN POTASSIUM 50 MG TABLET PO SCH (10:11)
[2020-05-15] MEDS: MEROPENEM 1 GM in SODIUM CHLORIDE 100 ML IVPB SCH (10:11)
[2020-05-15] MEDS: SILVER SULFADIAZINE 1% TOP CREAM 400 GM JAR TP SCH (10:11)
[2020-05-15] MEDS: CARVEDILOL 25 MG TABLET (FP) PO SCH (10:11)
[2020-05-15] MEDS ORDERED: MORPHINE SULFATE 2 MG/ML VIAL IVPUSH ONE ×2 (11:00→17:15)
== END 2020-05-15 18:28 | disposition home or self-care (01) | DRG 300 ==
LOC: FER 09:15 → FM/S 10:20
PROVIDERS: ADMIT Internal Medicine; ATTEND Nurse Practitioner Acute Care
PROC: 05HM33Z Insertion of Infusion Device into Right Internal Jugular Vein, Percutaneous Approach (ICD-10-PCS; principal; 2020-05-15)
PROC: B513ZZA Fluoroscopy of Right Jugular Veins, Guidance (ICD-10-PCS; 2020-05-15)
DX: E11.51 Type 2 diabetes mellitus with diabetic peripheral angiopathy without gangrene (principal); L97.929 Non-pressure chronic ulcer of unspecified part of left lower leg with unspecified severity; E11.621 Type 2 diabetes mellitus with foot ulcer; I10 Essential (primary) hypertension; E78.5 Hyperlipidemia, unspecified; N40.0 Benign prostatic hyperplasia without lower urinary tract symptoms
CPT/HCPCS: 36415; 36558; 80053; 82962; 83735; 85025; 85610; 85730; 87040; 93005; 97116-GP; 97162-GP; 99285-25; C9803; J0475; J1644; U0003

== ENCOUNTER 2020-07-09 05:21 | Day surgery (SDC) | payer OTHER ==
[2020-07-08 15:54] VITALS: BMI 30.4
[2020-07-09] MEDS ORDERED: HEPARIN NA (PORCINE) 5,000 UNITS/ML 1ML VIAL ONE (07:10)
[2020-07-09] MEDS ORDERED: LIDOCAINE HCL 1%, 10 MG/ML (20ML VIAL) ONE (07:10)
[2020-07-09 09:22] LABS: BASO % 0.8 % (0-2.0); HEMATOCRIT 27.1 % (35.4-49); HEMOGLOBIN 8.2 GM/dL (11.7-16.9); LYMPH % 28.8 % (8-40); MCH 27.7 pg (25.7-33.7); MCHC 30.4 g/dl (32.0-35.9); MEAN PLT VOLUME 10.2 fl (7.5-11.1); NEUT % 59.4 % (42.8-82.8); PLATELET COUNT 137 K/MM3 (134-434); RBC 2.98 M/mm3 (4.00-5.60)
[2020-07-09 09:27] LABS: INR 1.09 (0.83-1.09); PROTHROMBIN TIME (PATIENT) 13.2 SEC (9.7-13.0)
[2020-07-09 09:30] LABS: ACTIVATED PTT 29.7 SECONDS (25.2-36.5)
[2020-07-09 09:39] LABS: POTASSIUM 4.5 mmol/L (3.5-5.1)
[2020-07-09 09:41] LABS: CALCIUM 8.7 mg/dL (8.5-10.1)
[2020-07-09 09:42] LABS: ALBUMIN 3.3 g/dl (3.4-5.0)
[2020-07-09 09:46] LABS: BILIRUBIN,TOTAL 0.4 mg/dL (0.2-1); TOT PROT 8.1 g/dl (6.4-8.2)
[2020-07-09] MEDS ORDERED: LIDOCAINE HCL 1%, 10 MG/ML (20ML VIAL) INF ONE ×2 (10:47)
[2020-07-09] MEDS ORDERED: IOHEXOL 300 MG/ML INFUS..BTL IJ ONE (10:47)
[2020-07-09] MEDS ORDERED: oxyCODONE HCL 5 MG TABLET PO PRN ×2 (12:26)
[2020-07-09] MEDS ORDERED: oxyCODONE HCL 5 MG TABLET ONE (13:08)
[2020-07-09 14:12] VITALS: BP 155/76; PULSE 92; TEMP 98.9
== END 2020-07-09 14:25 | disposition home or self-care (01) ==
LOC: JASU-SURG 05:21
PROVIDERS: ATTEND Surgery Vascular Surgery
PROC: B41DYZZ Fluoroscopy of Aorta and Bilateral Lower Extremity Arteries using Other Contrast (ICD-10-PCS; principal; 2020-07-09 10:00)
DX: E11.621 Type 2 diabetes mellitus with foot ulcer (principal); L97.522 Non-pressure chronic ulcer of other part of left foot with fat layer exposed
CPT/HCPCS: 36415; 76000-TC-FY; 80053; 82962; 83036; 85025; 85610; 85730; 94760; J1644

== ENCOUNTER 2020-08-06 19:09 | Inpatient (IN) | payer OTHER ==
[2020-08-06] MEDS ORDERED: MEROPENEM 1 GM in DEXTROSE 5%-WATER 100 ML IVPB ONE (20:37)
[2020-08-06] MEDS ORDERED: MEROPENEM 1 GM VIAL (RESTRICTED TO ID) IVPB ONE (21:53)
[2020-08-06 22:06] LABS: EOS % 3.3 % (0-4.5); HEMATOCRIT 29.3 % (35.4-49); HEMOGLOBIN 9.7 GM/dL (11.7-16.9); LYMPH % 13.4 % (8-40); MCH 29.9 pg (25.7-33.7); MEAN CELL VOLUME 90.7 fl (80-96); MEAN PLT VOLUME 10.1 fl (7.5-11.1); MONO % 7.1 % (3.8-10.2); NEUT % 75.2 % (42.8-82.8); PLATELET COUNT 221 K/MM3 (134-434); RBC 3.23 M/mm3 (4.00-5.60); WHITE BLOOD COUNT 7.4 K/mm3 (4.0-10.0)
[2020-08-06 22:18] LABS: INR 1.1 (0.83-1.09); PROTHROMBIN TIME (PATIENT) 13.3 SEC (9.7-13.0)
[2020-08-06 22:28] LABS: CALCIUM 8.5 mg/dL (8.5-10.1)
[2020-08-06 22:29] LABS: ALBUMIN 3.1 g/dl (3.4-5.0); BLOOD UREA NITROGEN 38.6 mg/dL (7-18)
[2020-08-06 22:32] LABS: CREATININE 1.8 mg/dL (0.55-1.3)
[2020-08-06 22:34] LABS: BILIRUBIN,TOTAL 0.4 mg/dL (0.2-1); TOT PROT 8.7 g/dl (6.4-8.2)
[2020-08-07] MEDS ORDERED: oxyCODONE HCL 5 MG TABLET PO ONE (03:45)
[2020-08-07] MEDS ORDERED: ACETAMINOPHEN 325 MG TABLET (FP) PO ONE (03:45)
[2020-08-07] MEDS ORDERED: DEXTROSE 5%-WATER 100 ML IVPB ONE ×2 (11:29→16:53)
[2020-08-07] MEDS ORDERED: MEROPENEM 1 GM VIAL (RESTRICTED TO ID) IVPB ONE ×2 (11:29→16:53)
[2020-08-07] MEDS: LOSARTAN 50MG/HCTZ 12.5MG 1 TAB PO SCH (12:20)
[2020-08-07] MEDS: CARVEDILOL 25 MG TABLET (FP) PO SCH ×2 (12:21→21:21)
[2020-08-07] MEDS: MEROPENEM 1 GM in DEXTROSE 5%-WATER 100 ML IVPB SCH ×2 (12:21→17:08)
[2020-08-07] MEDS: oxyCODONE HCL 5 MG TABLET PO PRN ×2 (12:23→18:05)
[2020-08-07] MEDS: ACETAMINOPHEN 325 MG TABLET (FP) PO PRN ×2 (12:23→18:05)
[2020-08-07] MEDS: CLOPIDOGREL BISULFATE 75 MG TABLET (FP) PO SCH (13:15)
[2020-08-07] MEDS: GABAPENTIN 100 MG CAPSULE PO SCH ×2 (13:16→21:22)
[2020-08-07] MEDS: BACLOFEN 10 MG TABLET (FP) PO SCH ×2 (13:16→21:21)
[2020-08-07 16:00] LABS: BASO % 1.1 % (0-2.0); HEMATOCRIT 26.9 % (35.4-49); LYMPH % 7.7 % (8-40); MCH 29.8 pg (25.7-33.7); MCHC 33.5 g/dl (32.0-35.9); MEAN CELL VOLUME 88.9 fl (80-96); MEAN PLT VOLUME 9.8 fl (7.5-11.1); MONO % 5.3 % (3.8-10.2); NEUT % 84.9 % (42.8-82.8); PLATELET COUNT 209 K/MM3 (134-434); RBC 3.03 M/mm3 (4.00-5.60); RDW 13.6 % (11.9-15.9); WHITE BLOOD COUNT 7.9 K/mm3 (4.0-10.0)
[2020-08-07 16:20] LABS: CALCIUM 8.4 mg/dL (8.5-10.1)
[2020-08-07 16:21] LABS: ALBUMIN 2.6 g/dl (3.4-5.0); BLOOD UREA NITROGEN 29.3 mg/dL (7-18)
[2020-08-07 16:24] LABS: CREATININE 1.4 mg/dL (0.55-1.3)
[2020-08-07 16:25] LABS: BILIRUBIN,TOTAL 0.3 mg/dL (0.2-1); TOT PROT 7.2 g/dl (6.4-8.2)
[2020-08-07] MEDS: DOXYCYCLINE HYCLATE 100 MG CAPSULE PO SCH (17:08)
[2020-08-07] MEDS ORDERED: PT OWN MED DRAWER 7, Y5N ONE (21:18)
[2020-08-07] MEDS: LATANOPROST 0.005% OPHTH SOLN 2.5ML BOTTLE OU SCH (21:22)
[2020-08-08] MEDS ORDERED: MEROPENEM 1 GM VIAL (RESTRICTED TO ID) IVPB ONE ×3 (00:51→17:10)
[2020-08-08] MEDS ORDERED: DEXTROSE 5%-WATER 100 ML IVPB ONE ×3 (00:51→17:11)
[2020-08-08] MEDS: MEROPENEM 1 GM in DEXTROSE 5%-WATER 100 ML IVPB SCH ×3 (01:20→17:29)
[2020-08-08] MEDS: metFORMIN HCL 500 MG TABLET (FP) PO SCH (06:35)
[2020-08-08] MEDS: BACLOFEN 10 MG TABLET (FP) PO SCH ×3 (06:35→21:22)
[2020-08-08] MEDS: GABAPENTIN 100 MG CAPSULE PO SCH ×3 (06:35→21:22)
[2020-08-08] MEDS ORDERED: PT OWN MED DRAWER 7, Y5N ONE ×2 (09:21→17:13)
[2020-08-08] MEDS: LOSARTAN 50MG/HCTZ 12.5MG 1 TAB PO SCH (09:48)
[2020-08-08] MEDS: CARVEDILOL 25 MG TABLET (FP) PO SCH ×2 (09:48→21:22)
[2020-08-08] MEDS: CLOPIDOGREL BISULFATE 75 MG TABLET (FP) PO SCH (09:48)
[2020-08-08] MEDS: DOXYCYCLINE HYCLATE 100 MG CAPSULE PO SCH ×2 (09:48→17:29)
[2020-08-08] MEDS: COLLAGENASE CLOSTRIDIUM HIST. 30 GRAMS TUBE TP SCH (17:22)
[2020-08-08] MEDS: oxyCODONE HCL 5 MG TABLET PO PRN (17:28)
[2020-08-08] MEDS: ACETAMINOPHEN 325 MG TABLET (FP) PO PRN (17:29)
[2020-08-08] MEDS: LATANOPROST 0.005% OPHTH SOLN 2.5ML BOTTLE OU SCH (21:22)
[2020-08-09] MEDS ORDERED: MEROPENEM 1 GM VIAL (RESTRICTED TO ID) IVPB ONE ×2 (01:18→09:09)
[2020-08-09] MEDS ORDERED: DEXTROSE 5%-WATER 100 ML IVPB ONE ×2 (01:19→09:09)
[2020-08-09] MEDS: MEROPENEM 1 GM in DEXTROSE 5%-WATER 100 ML IVPB SCH ×3 (01:32→17:29)
[2020-08-09] MEDS: GABAPENTIN 100 MG CAPSULE PO SCH ×3 (05:31→23:30)
[2020-08-09] MEDS: BACLOFEN 10 MG TABLET (FP) PO SCH ×3 (05:31→23:30)
[2020-08-09] MEDS: ACETAMINOPHEN 325 MG TABLET (FP) PO PRN (05:43)
[2020-08-09] MEDS: oxyCODONE HCL 5 MG TABLET PO PRN (05:43)
[2020-08-09] MEDS: metFORMIN HCL 500 MG TABLET (FP) PO SCH (06:08)
[2020-08-09] MEDS: CLOPIDOGREL BISULFATE 75 MG TABLET (FP) PO SCH (09:22)
[2020-08-09] MEDS: CARVEDILOL 25 MG TABLET (FP) PO SCH ×2 (09:22→23:30)
[2020-08-09] MEDS: DOXYCYCLINE HYCLATE 100 MG CAPSULE PO SCH ×2 (09:22→17:29)
[2020-08-09] MEDS ORDERED: PT OWN MED DRAWER 7, Y5N ONE (09:24)
[2020-08-09] MEDS: LOSARTAN 50MG/HCTZ 12.5MG 1 TAB PO SCH (09:26)
[2020-08-09] MEDS: COLLAGENASE CLOSTRIDIUM HIST. 30 GRAMS TUBE TP SCH (09:26)
[2020-08-09 18:23] VITALS: BMI 30.4
[2020-08-09] MEDS: LATANOPROST 0.005% OPHTH SOLN 2.5ML BOTTLE OU SCH (23:31)
[2020-08-10] MEDS ORDERED: MEROPENEM 1 GM VIAL (RESTRICTED TO ID) IVPB ONE ×3 (02:50→16:49)
[2020-08-10] MEDS ORDERED: DEXTROSE 5%-WATER 100 ML IVPB ONE ×3 (02:51→16:49)
[2020-08-10] MEDS: MEROPENEM 1 GM in DEXTROSE 5%-WATER 100 ML IVPB SCH ×3 (03:02→17:04)
[2020-08-10] MEDS: metFORMIN HCL 500 MG TABLET (FP) PO SCH (07:42)
[2020-08-10] MEDS: BACLOFEN 10 MG TABLET (FP) PO SCH ×3 (07:42→21:43)
[2020-08-10] MEDS: AMINO ACIDS/PROTEIN HYDROLYS 30 ML LIQUID.PKT PO SCH (08:46)
[2020-08-10] MEDS: GABAPENTIN 100 MG CAPSULE PO SCH ×3 (08:56→21:43)
[2020-08-10] MEDS: CLOPIDOGREL BISULFATE 75 MG TABLET (FP) PO SCH (09:38)
[2020-08-10] MEDS: CARVEDILOL 25 MG TABLET (FP) PO SCH ×2 (09:38→21:43)
[2020-08-10] MEDS: MULTIVITAMINS (DAILY MVI) TABLET (FP) PO SCH (09:38)
[2020-08-10] MEDS: DOXYCYCLINE HYCLATE 100 MG CAPSULE PO SCH ×2 (09:38→17:03)
[2020-08-10] MEDS ORDERED: PT OWN MED DRAWER 7, Y5N ONE ×3 (11:01→13:29)
[2020-08-10] MEDS: LOSARTAN 50MG/HCTZ 12.5MG 1 TAB PO SCH (11:09)
[2020-08-10] MEDS: COLLAGENASE CLOSTRIDIUM HIST. 30 GRAMS TUBE TP SCH (11:09)
[2020-08-10] MEDS: LATANOPROST 0.005% OPHTH SOLN 2.5ML BOTTLE OU SCH (21:44)
[2020-08-11] MEDS: MEROPENEM 1 GM in DEXTROSE 5%-WATER 100 ML IVPB SCH ×3 (03:06→17:38)
[2020-08-11] MEDS: GABAPENTIN 100 MG CAPSULE PO SCH ×3 (06:28→21:20)
[2020-08-11] MEDS: metFORMIN HCL 500 MG TABLET (FP) PO SCH (06:28)
[2020-08-11] MEDS: BACLOFEN 10 MG TABLET (FP) PO SCH ×3 (06:28→21:20)
[2020-08-11] MEDS: AMINO ACIDS/PROTEIN HYDROLYS 30 ML LIQUID.PKT PO SCH (08:38)
[2020-08-11] MEDS ORDERED: MEROPENEM 1 GM VIAL (RESTRICTED TO ID) IVPB ONE ×2 (09:45→17:26)
[2020-08-11] MEDS ORDERED: DEXTROSE 5%-WATER 100 ML IVPB ONE ×2 (09:45→17:26)
[2020-08-11] MEDS: MULTIVITAMINS (DAILY MVI) TABLET (FP) PO SCH (09:54)
[2020-08-11] MEDS: DOXYCYCLINE HYCLATE 100 MG CAPSULE PO SCH ×2 (09:54→17:34)
[2020-08-11] MEDS: CARVEDILOL 25 MG TABLET (FP) PO SCH ×2 (09:54→23:25)
[2020-08-11] MEDS: CLOPIDOGREL BISULFATE 75 MG TABLET (FP) PO SCH (09:54)
[2020-08-11] MEDS ORDERED: PT OWN MED DRAWER 7, Y5N ONE (09:59)
[2020-08-11] MEDS: LOSARTAN 50MG/HCTZ 12.5MG 1 TAB PO SCH (10:02)
[2020-08-11] MEDS: COLLAGENASE CLOSTRIDIUM HIST. 30 GRAMS TUBE TP SCH (11:02)
[2020-08-11] MEDS: oxyCODONE HCL 5 MG TABLET PO PRN (17:34)
[2020-08-11] MEDS: LATANOPROST 0.005% OPHTH SOLN 2.5ML BOTTLE OU SCH (21:20)
[2020-08-12] MEDS: oxyCODONE HCL 5 MG TABLET PO PRN ×2 (00:42→09:14)
[2020-08-12] MEDS: ACETAMINOPHEN 325 MG TABLET (FP) PO PRN ×3 (00:43→21:33)
[2020-08-12] MEDS ORDERED: MEROPENEM 1 GM VIAL (RESTRICTED TO ID) IVPB ONE ×3 (02:44→17:23)
[2020-08-12] MEDS ORDERED: DEXTROSE 5%-WATER 100 ML IVPB ONE ×3 (02:45→17:23)
[2020-08-12] MEDS: MEROPENEM 1 GM in DEXTROSE 5%-WATER 100 ML IVPB SCH ×3 (02:51→17:27)
[2020-08-12] MEDS: GABAPENTIN 100 MG CAPSULE PO SCH ×3 (06:17→21:32)
[2020-08-12] MEDS: BACLOFEN 10 MG TABLET (FP) PO SCH ×3 (06:17→21:32)
[2020-08-12] MEDS: metFORMIN HCL 500 MG TABLET (FP) PO SCH (06:17)
[2020-08-12] MEDS: AMINO ACIDS/PROTEIN HYDROLYS 30 ML LIQUID.PKT PO SCH (09:13)
[2020-08-12] MEDS: DOXYCYCLINE HYCLATE 100 MG CAPSULE PO SCH ×2 (09:13→17:27)
[2020-08-12] MEDS: CARVEDILOL 25 MG TABLET (FP) PO SCH ×2 (09:13→21:32)
[2020-08-12] MEDS: MULTIVITAMINS (DAILY MVI) TABLET (FP) PO SCH (09:13)
[2020-08-12] MEDS: CLOPIDOGREL BISULFATE 75 MG TABLET (FP) PO SCH (09:13)
[2020-08-12] MEDS: COLLAGENASE CLOSTRIDIUM HIST. 30 GRAMS TUBE TP SCH (09:14)
[2020-08-12] MEDS: LOSARTAN 50MG/HCTZ 12.5MG 1 TAB PO SCH (09:17)
[2020-08-12 09:51] LABS: BASO % 0.9 % (0-2.0); EOS % 5.1 % (0-4.5); HEMATOCRIT 28.4 % (35.4-49); HEMOGLOBIN 9.6 GM/dL (11.7-16.9); LYMPH % 27.4 % (8-40); MCH 30.2 pg (25.7-33.7); MCHC 33.9 g/dl (32.0-35.9); MEAN PLT VOLUME 9.8 fl (7.5-11.1); MONO % 9.2 % (3.8-10.2); NEUT % 57.4 % (42.8-82.8); PLATELET COUNT 245 K/MM3 (134-434); RBC 3.19 M/mm3 (4.00-5.60); RDW 13.2 % (11.9-15.9); WHITE BLOOD COUNT 5.2 K/mm3 (4.0-10.0)
[2020-08-12 10:26] LABS: BILIRUBIN,TOTAL 0.2 mg/dL (0.2-1)
[2020-08-12 10:31] LABS: ALBUMIN 2.7 g/dl (3.4-5.0); BLOOD UREA NITROGEN 34.9 mg/dL (7-18); CALCIUM 9.2 mg/dL (8.5-10.1); CREATININE 1.2 mg/dL (0.55-1.3); TOT PROT 7.8 g/dl (6.4-8.2)
[2020-08-12 11:11] LABS: HEMATOCRIT 27.8 % (35.4-49); HEMOGLOBIN 9.3 GM/dL (11.7-16.9); MCH 29.7 pg (25.7-33.7); MCHC 33.4 g/dl (32.0-35.9); MEAN PLT VOLUME 9.5 fl (7.5-11.1); PLATELET COUNT 243 K/MM3 (134-434); RBC 3.12 M/mm3 (4.00-5.60); RDW 13.5 % (11.9-15.9)
[2020-08-12 11:40] LABS: CALCIUM 8.8 mg/dL (8.5-10.1)
[2020-08-12 11:41] LABS: BLOOD UREA NITROGEN 33.8 mg/dL (7-18)
[2020-08-12 11:44] LABS: CREATININE 1.2 mg/dL (0.55-1.3)
[2020-08-12] MEDS: LATANOPROST 0.005% OPHTH SOLN 2.5ML BOTTLE OU SCH (21:33)
[2020-08-13] MEDS ORDERED: MEROPENEM 1 GM VIAL (RESTRICTED TO ID) IVPB ONE ×3 (01:43→17:32)
[2020-08-13] MEDS ORDERED: DEXTROSE 5%-WATER 100 ML IVPB ONE ×3 (01:44→17:32)
[2020-08-13] MEDS: MEROPENEM 1 GM in DEXTROSE 5%-WATER 100 ML IVPB SCH ×3 (01:54→17:33)
[2020-08-13] MEDS: BACLOFEN 10 MG TABLET (FP) PO SCH ×3 (06:51→21:33)
[2020-08-13] MEDS: GABAPENTIN 100 MG CAPSULE PO SCH ×3 (06:51→21:33)
[2020-08-13] MEDS: metFORMIN HCL 500 MG TABLET (FP) PO SCH (06:51)
[2020-08-13] MEDS ORDERED: PT OWN MED DRAWER 7, Y5N ONE (10:01)
[2020-08-13] MEDS ORDERED: LIDOCAINE HCL 1%, 10 MG/ML (20ML VIAL) ONE (10:02)
[2020-08-13] MEDS: CARVEDILOL 25 MG TABLET (FP) PO SCH ×2 (10:06→21:33)
[2020-08-13] MEDS: LOSARTAN 50MG/HCTZ 12.5MG 1 TAB PO SCH (10:07)
[2020-08-13] MEDS: AMINO ACIDS/PROTEIN HYDROLYS 30 ML LIQUID.PKT PO SCH (10:11)
[2020-08-13] MEDS: DOXYCYCLINE HYCLATE 100 MG CAPSULE PO SCH ×2 (10:12→17:33)
[2020-08-13] MEDS: COLLAGENASE CLOSTRIDIUM HIST. 30 GRAMS TUBE TP SCH (10:12)
[2020-08-13] MEDS: CLOPIDOGREL BISULFATE 75 MG TABLET (FP) PO SCH (10:12)
[2020-08-13] MEDS: MULTIVITAMINS (DAILY MVI) TABLET (FP) PO SCH (10:12)
[2020-08-13] MEDS ORDERED: PROPOFOL 20 ML ONE ×2 (10:52→11:24)
[2020-08-13] MEDS ORDERED: MIDAZOLAM HCL 2 MG/2 ML SINGLE DOSE VIAL ONE ×2 (10:53→12:16)
[2020-08-13] MEDS ORDERED: ONDANSETRON 4 MG/2 ML VIAL IVPUSH PRN ×2 (11:12→12:38)
[2020-08-13] MEDS ORDERED: LACTATED RINGERS SOLUTION 1,000 ML IV SCH (11:15)
[2020-08-13] MEDS ORDERED: LIDOCAINE HCL 1%, 10 MG/ML (20ML VIAL) PNB ONE (11:23)
[2020-08-13] MEDS ORDERED: MORPHINE SULFATE 2 MG/ML VIAL IVPUSH PRN (11:45)
[2020-08-13] MEDS ORDERED: HYDROmorphone HCl 2 MG/ML VIAL ONE ×2 (11:56→13:03)
[2020-08-13] MEDS: HYDROmorphone HCL CARPU-JECT 2 MG/1 ML DISP.SYRIN IVPUSH ONE ×7 (12:05→13:30)
[2020-08-13] MEDS ORDERED: ACETAMINOPHEN INJECTION 100 ML IVPB ONE (12:39)
[2020-08-13] MEDS ORDERED: ACETAMINOPHEN 1000 MG/100 ML VIAL (NON FORMULARY) IVPB ONE (12:40)
[2020-08-13] MEDS ORDERED: MIDAZOLAM HCL 2 MG/2 ML SINGLE DOSE VIAL IVPUSH ONE (12:53)
[2020-08-13] MEDS ORDERED: HYDROmorphone HCl 2 MG/ML VIAL IVPUSH ONE (14:00)
[2020-08-13] MEDS: morphine SULFATE 4 MG/ML VIAL IVPUSH PRN (15:23)
[2020-08-13] MEDS: LACTATED RINGERS SOLUTION 1,000 ML IV SCH (15:24)
[2020-08-13] MEDS: DOCUSATE SODIUM 100 MG CAPSULE (FP) PO PRN (16:21)
[2020-08-13] MEDS: LATANOPROST 0.005% OPHTH SOLN 2.5ML BOTTLE OU SCH (21:50)
[2020-08-14] MEDS: LACTATED RINGERS SOLUTION 1,000 ML IV SCH ×2 (00:30→18:21)
[2020-08-14] MEDS ORDERED: MEROPENEM 1 GM VIAL (RESTRICTED TO ID) IVPB ONE ×3 (01:10→18:16)
[2020-08-14] MEDS ORDERED: DEXTROSE 5%-WATER 100 ML IVPB ONE ×3 (01:10→18:16)
[2020-08-14] MEDS: morphine SULFATE 4 MG/ML VIAL IVPUSH PRN (01:15)
[2020-08-14] MEDS: MEROPENEM 1 GM in DEXTROSE 5%-WATER 100 ML IVPB SCH ×3 (01:16→18:22)
[2020-08-14] MEDS: metFORMIN HCL 500 MG TABLET (FP) PO SCH (06:03)
[2020-08-14] MEDS: GABAPENTIN 100 MG CAPSULE PO SCH ×3 (06:04→21:09)
[2020-08-14] MEDS: BACLOFEN 10 MG TABLET (FP) PO SCH ×3 (06:04→21:09)
[2020-08-14] MEDS: AMINO ACIDS/PROTEIN HYDROLYS 30 ML LIQUID.PKT PO SCH (08:38)
[2020-08-14] MEDS ORDERED: PT OWN MED DRAWER 7, Y5N ONE (09:28)
[2020-08-14] MEDS: CARVEDILOL 25 MG TABLET (FP) PO SCH ×2 (09:32→21:09)
[2020-08-14] MEDS: LOSARTAN 50MG/HCTZ 12.5MG 1 TAB PO SCH (09:33)
[2020-08-14] MEDS: oxyCODONE HCL 5 MG TABLET PO PRN (09:33)
[2020-08-14] MEDS: DOXYCYCLINE HYCLATE 100 MG CAPSULE PO SCH ×2 (09:33→18:22)
[2020-08-14] MEDS: CLOPIDOGREL BISULFATE 75 MG TABLET (FP) PO SCH (09:33)
[2020-08-14] MEDS: MULTIVITAMINS (DAILY MVI) TABLET (FP) PO SCH (09:33)
[2020-08-14] MEDS: COLLAGENASE CLOSTRIDIUM HIST. 30 GRAMS TUBE TP SCH (10:08)
[2020-08-14] MEDS: DOCUSATE SODIUM 100 MG CAPSULE (FP) PO PRN (14:51)
[2020-08-14] MEDS: LATANOPROST 0.005% OPHTH SOLN 2.5ML BOTTLE OU SCH (21:10)
[2020-08-15] MEDS: oxyCODONE HCL 5 MG TABLET PO PRN ×2 (00:33→16:44)
[2020-08-15] MEDS: ACETAMINOPHEN 325 MG TABLET (FP) PO PRN (00:33)
[2020-08-15] MEDS ORDERED: DEXTROSE 5%-WATER 100 ML IVPB ONE ×3 (02:44→17:54)
[2020-08-15] MEDS ORDERED: MEROPENEM 1 GM VIAL (RESTRICTED TO ID) IVPB ONE ×3 (02:44→17:54)
[2020-08-15] MEDS: MEROPENEM 1 GM in DEXTROSE 5%-WATER 100 ML IVPB SCH ×3 (02:53→18:08)
[2020-08-15] MEDS: metFORMIN HCL 500 MG TABLET (FP) PO SCH (06:22)
[2020-08-15] MEDS: GABAPENTIN 100 MG CAPSULE PO SCH ×3 (06:22→21:55)
[2020-08-15] MEDS: LACTATED RINGERS SOLUTION 1,000 ML IV SCH ×2 (06:23→14:05)
[2020-08-15] MEDS: BACLOFEN 10 MG TABLET (FP) PO SCH ×3 (06:23→21:55)
[2020-08-15] MEDS: AMINO ACIDS/PROTEIN HYDROLYS 30 ML LIQUID.PKT PO SCH (08:30)
[2020-08-15] MEDS ORDERED: PT OWN MED DRAWER 7, Y5N ONE (09:53)
[2020-08-15] MEDS: DOXYCYCLINE HYCLATE 100 MG CAPSULE PO SCH ×2 (09:58→18:08)
[2020-08-15] MEDS: MULTIVITAMINS (DAILY MVI) TABLET (FP) PO SCH (09:58)
[2020-08-15] MEDS: LOSARTAN 50MG/HCTZ 12.5MG 1 TAB PO SCH (09:58)
[2020-08-15] MEDS: CARVEDILOL 25 MG TABLET (FP) PO SCH ×2 (09:58→21:54)
[2020-08-15] MEDS: CLOPIDOGREL BISULFATE 75 MG TABLET (FP) PO SCH (09:59)
[2020-08-15] MEDS: COLLAGENASE CLOSTRIDIUM HIST. 30 GRAMS TUBE TP SCH (09:59)
[2020-08-15] MEDS: DOCUSATE SODIUM 100 MG CAPSULE (FP) PO PRN (16:44)
[2020-08-15] MEDS: morphine SULFATE 4 MG/ML VIAL IVPUSH PRN (20:10)
[2020-08-16] MEDS: LATANOPROST 0.005% OPHTH SOLN 2.5ML BOTTLE OU SCH ×2 (00:54→21:28)
[2020-08-16] MEDS ORDERED: MEROPENEM 1 GM VIAL (RESTRICTED TO ID) IVPB ONE ×3 (01:34→17:36)
[2020-08-16] MEDS ORDERED: DEXTROSE 5%-WATER 100 ML IVPB ONE ×3 (01:35→17:36)
[2020-08-16] MEDS: MEROPENEM 1 GM in DEXTROSE 5%-WATER 100 ML IVPB SCH ×3 (01:40→17:40)
[2020-08-16] MEDS: morphine SULFATE 4 MG/ML VIAL IVPUSH PRN ×2 (04:16→10:59)
[2020-08-16] MEDS: GABAPENTIN 100 MG CAPSULE PO SCH ×3 (06:31→21:27)
[2020-08-16] MEDS: metFORMIN HCL 500 MG TABLET (FP) PO SCH (06:32)
[2020-08-16] MEDS: BACLOFEN 10 MG TABLET (FP) PO SCH ×3 (06:32→21:27)
[2020-08-16] MEDS: LACTATED RINGERS SOLUTION 1,000 ML IV SCH ×2 (06:34→13:11)
[2020-08-16] MEDS ORDERED: PT OWN MED DRAWER 7, Y5N ONE (09:23)
[2020-08-16] MEDS: DOXYCYCLINE HYCLATE 100 MG CAPSULE PO SCH ×2 (09:25→17:40)
[2020-08-16] MEDS: CARVEDILOL 25 MG TABLET (FP) PO SCH ×2 (09:25→21:27)
[2020-08-16] MEDS: CLOPIDOGREL BISULFATE 75 MG TABLET (FP) PO SCH (09:25)
[2020-08-16] MEDS: MULTIVITAMINS (DAILY MVI) TABLET (FP) PO SCH (09:25)
[2020-08-16] MEDS: LOSARTAN 50MG/HCTZ 12.5MG 1 TAB PO SCH (09:26)
[2020-08-16] MEDS: AMINO ACIDS/PROTEIN HYDROLYS 30 ML LIQUID.PKT PO SCH (09:26)
[2020-08-16] MEDS: COLLAGENASE CLOSTRIDIUM HIST. 30 GRAMS TUBE TP SCH (09:30)
[2020-08-16] MEDS: DOCUSATE SODIUM 100 MG CAPSULE (FP) PO PRN (13:11)
[2020-08-16] MEDS: ACETAMINOPHEN 325 MG TABLET (FP) PO PRN (22:05)
[2020-08-17] MEDS ORDERED: MEROPENEM 1 GM VIAL (RESTRICTED TO ID) IVPB ONE ×3 (00:57→17:14)
[2020-08-17] MEDS ORDERED: DEXTROSE 5%-WATER 100 ML IVPB ONE ×3 (00:57→17:15)
[2020-08-17] MEDS: MEROPENEM 1 GM in DEXTROSE 5%-WATER 100 ML IVPB SCH ×3 (01:01→17:19)
[2020-08-17] MEDS ORDERED: GABAPENTIN 400 MG CAPSULE PO SCH (05:39)
[2020-08-17] MEDS: GABAPENTIN 400 MG CAPSULE PO SCH ×3 (05:48→22:23)
[2020-08-17] MEDS: BACLOFEN 10 MG TABLET (FP) PO SCH ×3 (05:48→22:22)
[2020-08-17] MEDS: metFORMIN HCL 500 MG TABLET (FP) PO SCH (06:02)
[2020-08-17] MEDS: AMINO ACIDS/PROTEIN HYDROLYS 30 ML LIQUID.PKT PO SCH (08:15)
[2020-08-17] MEDS: MULTIVITAMINS (DAILY MVI) TABLET (FP) PO SCH (10:07)
[2020-08-17] MEDS: CARVEDILOL 25 MG TABLET (FP) PO SCH ×2 (10:07→22:22)
[2020-08-17] MEDS: CLOPIDOGREL BISULFATE 75 MG TABLET (FP) PO SCH (10:07)
[2020-08-17] MEDS: DOXYCYCLINE HYCLATE 100 MG CAPSULE PO SCH ×2 (10:07→17:19)
[2020-08-17] MEDS: LOSARTAN 50MG/HCTZ 12.5MG 1 TAB PO SCH (10:16)
[2020-08-17] MEDS: COLLAGENASE CLOSTRIDIUM HIST. 30 GRAMS TUBE TP SCH (13:49)
[2020-08-17] MEDS: ACETAMINOPHEN 325 MG TABLET (FP) PO PRN ×2 (14:51→22:22)
[2020-08-17] MEDS: LACTATED RINGERS SOLUTION 1,000 ML IV SCH (14:51)
[2020-08-17 17:22] LABS: BASO % 1.1 % (0-2.0); EOS % 6.6 % (0-4.5); HEMATOCRIT 25.5 % (35.4-49); HEMOGLOBIN 8.6 GM/dL (11.7-16.9); LYMPH % 21.2 % (8-40); MCH 30.1 pg (25.7-33.7); MCHC 33.6 g/dl (32.0-35.9); MEAN CELL VOLUME 89.6 fl (80-96); MEAN PLT VOLUME 9.7 fl (7.5-11.1); MONO % 9.2 % (3.8-10.2); NEUT % 61.9 % (42.8-82.8); PLATELET COUNT 230 K/MM3 (134-434); RBC 2.85 M/mm3 (4.00-5.60); RDW 13.3 % (11.9-15.9); WHITE BLOOD COUNT 5.6 K/mm3 (4.0-10.0)
[2020-08-17 17:36] LABS: CALCIUM 8.3 mg/dL (8.5-10.1)
[2020-08-17 17:37] LABS: ALBUMIN 2.3 g/dl (3.4-5.0); BLOOD UREA NITROGEN 33.2 mg/dL (7-18)
[2020-08-17 17:40] LABS: CREATININE 1.1 mg/dL (0.55-1.3)
[2020-08-17 17:41] LABS: TOT PROT 6.8 g/dl (6.4-8.2)
[2020-08-17 17:47] LABS: BILIRUBIN,TOTAL 0.2 mg/dL (0.2-1)
[2020-08-17] MEDS: LATANOPROST 0.005% OPHTH SOLN 2.5ML BOTTLE OU SCH (22:23)
[2020-08-18] MEDS ORDERED: MEROPENEM 1 GM VIAL (RESTRICTED TO ID) IVPB ONE ×3 (00:42→17:43)
[2020-08-18] MEDS ORDERED: DEXTROSE 5%-WATER 100 ML IVPB ONE ×3 (00:43→17:44)
[2020-08-18] MEDS: MEROPENEM 1 GM in DEXTROSE 5%-WATER 100 ML IVPB SCH ×3 (01:00→17:53)
[2020-08-18] MEDS: GABAPENTIN 400 MG CAPSULE PO SCH ×3 (06:01→21:20)
[2020-08-18] MEDS: BACLOFEN 10 MG TABLET (FP) PO SCH ×3 (06:01→21:20)
[2020-08-18] MEDS: metFORMIN HCL 500 MG TABLET (FP) PO SCH (06:01)
[2020-08-18] MEDS: oxyCODONE HCL 5 MG TABLET PO PRN ×2 (06:05→14:20)
[2020-08-18] MEDS ORDERED: PT OWN MED DRAWER 7, Y5N ONE (09:54)
[2020-08-18] MEDS: LOSARTAN 50MG/HCTZ 12.5MG 1 TAB PO SCH (09:57)
[2020-08-18] MEDS: MULTIVITAMINS (DAILY MVI) TABLET (FP) PO SCH (09:57)
[2020-08-18] MEDS: LACTATED RINGERS SOLUTION 1,000 ML IV SCH ×2 (09:58→20:20)
[2020-08-18] MEDS: AMINO ACIDS/PROTEIN HYDROLYS 30 ML LIQUID.PKT PO SCH (09:58)
[2020-08-18] MEDS: DOXYCYCLINE HYCLATE 100 MG CAPSULE PO SCH ×2 (09:58→17:53)
[2020-08-18] MEDS: CLOPIDOGREL BISULFATE 75 MG TABLET (FP) PO SCH (09:58)
[2020-08-18] MEDS: CARVEDILOL 25 MG TABLET (FP) PO SCH ×2 (09:58→21:21)
[2020-08-18] MEDS: COLLAGENASE CLOSTRIDIUM HIST. 30 GRAMS TUBE TP SCH (10:03)
[2020-08-18] MEDS: LATANOPROST 0.005% OPHTH SOLN 2.5ML BOTTLE OU SCH (21:21)
[2020-08-19] MEDS ORDERED: DEXTROSE 5%-WATER 100 ML IVPB ONE ×3 (01:05→17:10)
[2020-08-19] MEDS ORDERED: MEROPENEM 1 GM VIAL (RESTRICTED TO ID) IVPB ONE ×3 (01:05→17:10)
[2020-08-19] MEDS: MEROPENEM 1 GM in DEXTROSE 5%-WATER 100 ML IVPB SCH ×3 (01:33→17:13)
[2020-08-19] MEDS: metFORMIN HCL 500 MG TABLET (FP) PO SCH (06:21)
[2020-08-19] MEDS: GABAPENTIN 400 MG CAPSULE PO SCH ×3 (06:21→21:45)
[2020-08-19] MEDS: BACLOFEN 10 MG TABLET (FP) PO SCH ×3 (06:22→21:45)
[2020-08-19] MEDS: LACTATED RINGERS SOLUTION 1,000 ML IV SCH ×2 (06:23→13:56)
[2020-08-19] MEDS: oxyCODONE HCL 5 MG TABLET PO PRN ×2 (08:48→21:58)
[2020-08-19] MEDS: AMINO ACIDS/PROTEIN HYDROLYS 30 ML LIQUID.PKT PO SCH (08:48)
[2020-08-19] MEDS ORDERED: PT OWN MED DRAWER 7, Y5N ONE (09:30)
[2020-08-19] MEDS: CLOPIDOGREL BISULFATE 75 MG TABLET (FP) PO SCH (09:56)
[2020-08-19] MEDS: DOCUSATE SODIUM 100 MG CAPSULE (FP) PO PRN (09:56)
[2020-08-19] MEDS: LOSARTAN 50MG/HCTZ 12.5MG 1 TAB PO SCH (09:56)
[2020-08-19] MEDS: CARVEDILOL 25 MG TABLET (FP) PO SCH ×2 (09:56→21:45)
[2020-08-19] MEDS: MULTIVITAMINS (DAILY MVI) TABLET (FP) PO SCH (09:56)
[2020-08-19] MEDS: DOXYCYCLINE HYCLATE 100 MG CAPSULE PO SCH ×2 (09:56→17:13)
[2020-08-19] MEDS: COLLAGENASE CLOSTRIDIUM HIST. 30 GRAMS TUBE TP SCH (09:57)
[2020-08-19] MEDS: LATANOPROST 0.005% OPHTH SOLN 2.5ML BOTTLE OU SCH (21:45)
[2020-08-20] MEDS ORDERED: DEXTROSE 5%-WATER 100 ML IVPB ONE ×2 (00:37→09:11)
[2020-08-20] MEDS ORDERED: MEROPENEM 1 GM VIAL (RESTRICTED TO ID) IVPB ONE ×2 (00:37→09:11)
[2020-08-20] MEDS: MEROPENEM 1 GM in DEXTROSE 5%-WATER 100 ML IVPB SCH ×2 (01:00→09:25)
[2020-08-20] MEDS: metFORMIN HCL 500 MG TABLET (FP) PO SCH (06:12)
[2020-08-20] MEDS: GABAPENTIN 400 MG CAPSULE PO SCH ×2 (06:12→13:54)
[2020-08-20] MEDS: BACLOFEN 10 MG TABLET (FP) PO SCH ×2 (06:12→13:54)
[2020-08-20] MEDS: AMINO ACIDS/PROTEIN HYDROLYS 30 ML LIQUID.PKT PO SCH (08:15)
[2020-08-20 08:30] VITALS: PULSE 81
[2020-08-20 08:45] LABS: BASO % 0.7 % (0-2.0); EOS % 3.5 % (0-4.5); HEMATOCRIT 28.5 % (35.4-49); HEMOGLOBIN 9.6 GM/dL (11.7-16.9); LYMPH % 19.8 % (8-40); MCH 29.7 pg (25.7-33.7); MCHC 33.6 g/dl (32.0-35.9); MEAN CELL VOLUME 88.4 fl (80-96); MEAN PLT VOLUME 9.7 fl (7.5-11.1); MONO % 7.6 % (3.8-10.2); NEUT % 68.4 % (42.8-82.8); PLATELET COUNT 253 K/MM3 (134-434); RBC 3.22 M/mm3 (4.00-5.60); RDW 13.2 % (11.9-15.9); WHITE BLOOD COUNT 5.9 K/mm3 (4.0-10.0)
[2020-08-20] MEDS ORDERED: PT OWN MED DRAWER 7, Y5N ONE (09:12)
[2020-08-20] MEDS: LOSARTAN 50MG/HCTZ 12.5MG 1 TAB PO SCH (09:24)
[2020-08-20] MEDS: CLOPIDOGREL BISULFATE 75 MG TABLET (FP) PO SCH (09:25)
[2020-08-20] MEDS: DOXYCYCLINE HYCLATE 100 MG CAPSULE PO SCH (09:25)
[2020-08-20] MEDS: MULTIVITAMINS (DAILY MVI) TABLET (FP) PO SCH (09:25)
[2020-08-20] MEDS: CARVEDILOL 25 MG TABLET (FP) PO SCH (09:25)
[2020-08-20 09:28] LABS: ALBUMIN 2.5 g/dl (3.4-5.0); CALCIUM 8.8 mg/dL (8.5-10.1)
[2020-08-20 09:29] LABS: BLOOD UREA NITROGEN 30.4 mg/dL (7-18)
[2020-08-20 09:33] LABS: BILIRUBIN,TOTAL 0.3 mg/dL (0.2-1); TOT PROT 7.4 g/dl (6.4-8.2)
[2020-08-20] MEDS: oxyCODONE HCL 5 MG TABLET PO PRN (10:31)
[2020-08-20] MEDS: COLLAGENASE CLOSTRIDIUM HIST. 30 GRAMS TUBE TP SCH ×2 (13:54→14:12)
[2020-08-20 15:02] VITALS: BP 124/80; TEMP 98.9
== END 2020-08-20 18:00 | disposition home health service (06) | DRG 264 ==
LOC: JER 19:09 → JERBED 20:23 → J6S 08-07 01:53
PROVIDERS: ADMIT Internal Medicine; ATTEND Internal Medicine
PROC: 0JBR0ZZ Excision of Left Foot Subcutaneous Tissue and Fascia, Open Approach (ICD-10-PCS; principal; 2020-08-13 13:30)
DX: E11.51 Type 2 diabetes mellitus with diabetic peripheral angiopathy without gangrene (principal); L97.919 Non-pressure chronic ulcer of unspecified part of right lower leg with unspecified severity; L97.929 Non-pressure chronic ulcer of unspecified part of left lower leg with unspecified severity; L03.115 Cellulitis of right lower limb; L03.116 Cellulitis of left lower limb; I83.019 Varicose veins of right lower extremity with ulcer of unspecified site; I83.029 Varicose veins of left lower extremity with ulcer of unspecified site; E11.40 Type 2 diabetes mellitus with diabetic neuropathy, unspecified; I73.9 Peripheral vascular disease, unspecified; I10 Essential (primary) hypertension; E78.00 Pure hypercholesterolemia, unspecified; E11.621 Type 2 diabetes mellitus with foot ulcer; N40.0 Benign prostatic hyperplasia without lower urinary tract symptoms; I25.10 Atherosclerotic heart disease of native coronary artery without angina pectoris; E78.5 Hyperlipidemia, unspecified; E66.9 Obesity, unspecified; Z68.30 Body mass index [BMI] 30.0-30.9, adult
CPT/HCPCS: 36415; 73610-TC-LT-FY; 73630-TC-LT; 80048; 80053; 82962; 85025; 85027; 85610; 86850; 86900; 86901; 87040; 87070; 87077; 87186; 87205; 93005; 93010; 94760; 97116-GP; 97162-GP; 99285-25; C9803; G0463-25; J0131; J0475; U0003; U0005

== ENCOUNTER 2020-12-20 17:51 | Inpatient (IN) | payer OTHER ==
[2020-12-20] MEDS ORDERED: ACETAMINOPHEN 1000 MG/100 ML VIAL (NON FORMULARY) IVPB ONE (19:22)
[2020-12-20] MEDS ORDERED: ACETAMINOPHEN INJECTION 100 ML IVPB ONE (19:31)
[2020-12-20] MEDS ORDERED: VANCOMYCIN 1 GM in D5W (PRE-DOCKED) 1,000 MG/250 ML IVPB ONE (19:37)
[2020-12-20] MEDS ORDERED: MEROPENEM 1 GM in DEXTROSE 5%-WATER 100 ML IVPB ONE (19:38)
[2020-12-20] MEDS ORDERED: VANCOMYCIN 1 GRAM (PRE-DOCKED) 1,000 MG/250 ML BAG IVPB ONE (20:01)
[2020-12-20] MEDS ORDERED: MEROPENEM 1 GM VIAL (RESTRICTED TO ID) IVPB ONE (20:01)
[2020-12-20 20:05] LABS: BASO % 0.8 % (0-2.0); EOS % 2.4 % (0-4.5); HEMATOCRIT 28.9 % (35.4-49); HEMOGLOBIN 9.6 GM/dL (11.7-16.9); LYMPH % 18.3 % (8-40); MCH 28.1 pg (25.7-33.7); MCHC 33.2 g/dl (32.0-35.9); MEAN CELL VOLUME 84.4 fl (80-96); MEAN PLT VOLUME 8.8 fl (7.5-11.1); MONO % 8.8 % (3.8-10.2); NEUT % 69.7 % (42.8-82.8); PLATELET COUNT 334 10^3/uL (134-434); RBC 3.43 M/mm3 (4.00-5.60); RDW 15.2 % (11.9-15.9); WHITE BLOOD COUNT 8.1 K/mm3 (4.0-10.0)
[2020-12-20 20:12] LABS: INR 1.13 (0.83-1.09); PROTHROMBIN TIME (PATIENT) 13.9 SEC (9.7-13.0)
[2020-12-20 20:15] LABS: ACTIVATED PTT 37.3 SECONDS (25.2-36.5)
[2020-12-20 20:17] LABS: CALCIUM 8.5 mg/dL (8.5-10.1)
[2020-12-20 20:18] LABS: ALBUMIN 3.1 g/dl (3.4-5.0); BLOOD UREA NITROGEN 15.4 mg/dL (7-18)
[2020-12-20 20:21] LABS: CREATININE 1.3 mg/dL (0.55-1.3)
[2020-12-20 20:23] LABS: BILIRUBIN,TOTAL 0.2 mg/dL (0.2-1); TOT PROT 8.7 g/dl (6.4-8.2)
[2020-12-20] MEDS ORDERED: ACETAMINOPHEN 500 MG TABLET (FP) PO PRN (20:43)
[2020-12-20 20:46] LABS: ERYTHROCYTE SEDIMENTATION RATE 75 mm/hr (0-20)
[2020-12-20] MEDS ORDERED: CARVEDILOL 12.5 MG TABLET (FP) ONE (23:16)
[2020-12-20] MEDS: CARVEDILOL 25 MG TABLET (FP) PO SCH (23:26)
[2020-12-21] MEDS: metFORMIN HCL 500 MG TABLET (FP) PO SCH (09:39)
[2020-12-21] MEDS: CARVEDILOL 25 MG TABLET (FP) PO SCH ×2 (10:19→21:10)
[2020-12-21] MEDS: GABAPENTIN 400 MG CAPSULE PO SCH ×2 (13:16→21:10)
[2020-12-21] MEDS ORDERED: VANCOMYCIN 1 GRAM (PRE-DOCKED) 1 GM/200 ML BAG IVPB SCH (14:00)
[2020-12-21] MEDS ORDERED: PATIENT'S OWN MEDICATION (NON-FORMULARY) (Oxycodone Hcl/Acetaminophen [Oxycodone-Acetamino PO PRN ×2 (14:46→14:53)
[2020-12-21] MEDS ORDERED: ACETAMINOPHEN 325 MG TABLET (FP) PO PRN (15:00)
[2020-12-21] MEDS: oxyCODONE HCL 5 MG TABLET PO PRN (15:05)
[2020-12-21] MEDS: CLOPIDOGREL BISULFATE 75 MG TABLET (FP) PO SCH (15:09)
[2020-12-21] MEDS ORDERED: DEXTROSE 5%-WATER 100 ML IVPB ONE (16:38)
[2020-12-21] MEDS ORDERED: MEROPENEM 1 GM VIAL (RESTRICTED TO ID) IVPB ONE (16:38)
[2020-12-21] MEDS: MEROPENEM 1 GM in DEXTROSE 5%-WATER 100 ML IVPB SCH (17:05)
[2020-12-21] MEDS: BACLOFEN 10 MG TABLET (FP) PO SCH (21:10)
[2020-12-21] MEDS ORDERED: PATIENT'S OWN MEDICATION (NON-FORMULARY) (Oxycodone Hcl/Acetaminophen [Oxycodone-Acetamino PO SCH (22:00)
[2020-12-22] MEDS ORDERED: MEROPENEM 1 GM VIAL (RESTRICTED TO ID) IVPB ONE ×3 (01:15→17:07)
[2020-12-22] MEDS ORDERED: DEXTROSE 5%-WATER 100 ML IVPB ONE ×3 (01:15→17:08)
[2020-12-22] MEDS: MEROPENEM 1 GM in DEXTROSE 5%-WATER 100 ML IVPB SCH ×3 (01:30→17:29)
[2020-12-22] MEDS: GABAPENTIN 400 MG CAPSULE PO SCH ×3 (05:44→21:30)
[2020-12-22] MEDS: BACLOFEN 10 MG TABLET (FP) PO SCH ×3 (05:44→21:30)
[2020-12-22] MEDS: metFORMIN HCL 500 MG TABLET (FP) PO SCH (06:43)
[2020-12-22] MEDS ORDERED: PT OWN MED DRAWER 7, Y5N ONE ×2 (09:49→09:52)
[2020-12-22] MEDS: CARVEDILOL 25 MG TABLET (FP) PO SCH ×2 (09:55→21:30)
[2020-12-22] MEDS: CLOPIDOGREL BISULFATE 75 MG TABLET (FP) PO SCH (09:55)
[2020-12-22] MEDS: oxyCODONE HCL 5 MG TABLET PO PRN (10:02)
[2020-12-22] MEDS: MORPHINE SULFATE 2 MG/ML VIAL SQ PRN (14:51)
[2020-12-22] MEDS: VANCOMYCIN 1 GRAM (PRE-DOCKED) 1,000 MG/250 ML BAG IVPB SCH (18:14)
[2020-12-23] MEDS ORDERED: DEXTROSE 5%-WATER 100 ML IVPB ONE ×3 (01:05→18:14)
[2020-12-23] MEDS ORDERED: MEROPENEM 1 GM VIAL (RESTRICTED TO ID) IVPB ONE ×3 (01:05→18:14)
[2020-12-23] MEDS: MEROPENEM 1 GM in DEXTROSE 5%-WATER 100 ML IVPB SCH ×3 (01:52→18:22)
[2020-12-23] MEDS: VANCOMYCIN 1 GRAM (PRE-DOCKED) 1,000 MG/250 ML BAG IVPB SCH ×2 (05:34→18:21)
[2020-12-23] MEDS: BACLOFEN 10 MG TABLET (FP) PO SCH ×4 (06:50→21:23)
[2020-12-23] MEDS: GABAPENTIN 400 MG CAPSULE PO SCH ×4 (06:50→21:52)
[2020-12-23] MEDS: metFORMIN HCL 500 MG TABLET (FP) PO SCH (06:51)
[2020-12-23] MEDS: MORPHINE SULFATE 2 MG/ML VIAL SQ PRN (08:12)
[2020-12-23] MEDS: AMINO ACIDS/PROTEIN HYDROLYS 30 ML LIQUID.PKT PO SCH ×2 (08:20→17:42)
[2020-12-23 08:48] LABS: BASO % 0.8 % (0-2.0); EOS % 5.7 % (0-4.5); HEMATOCRIT 27.9 % (35.4-49); HEMOGLOBIN 9.2 GM/dL (11.7-16.9); LYMPH % 18.1 % (8-40); MCH 27.9 pg (25.7-33.7); MEAN CELL VOLUME 84.4 fl (80-96); MEAN PLT VOLUME 8.5 fl (7.5-11.1); MONO % 10.6 % (3.8-10.2); NEUT % 64.8 % (42.8-82.8); PLATELET COUNT 291 10^3/uL (134-434); RBC 3.31 M/mm3 (4.00-5.60); RDW 15.4 % (11.9-15.9); WHITE BLOOD COUNT 5.2 K/mm3 (4.0-10.0)
[2020-12-23 09:17] LABS: CHLORIDE 104 mmol/L (98-107); SODIUM 137 mmol/L (136-145)
[2020-12-23 09:25] LABS: ANION GAP 5 MMOL/L (8-16); BLOOD UREA NITROGEN 10.2 mg/dL (7-18); CALCIUM 8.1 mg/dL (8.5-10.1); CO2 27 mmol/L (21-32); SGOT/AST 11 U/L (15-37)
[2020-12-23 09:26] LABS: GLUCOSE,RANDOM 88 mg/dL (74-106)
[2020-12-23 09:27] LABS: BILIRUBIN,TOTAL 0.2 mg/dL (0.2-1)
[2020-12-23 09:28] LABS: ALK PHOS 53 U/L (45-117); TOT PROT 7.4 g/dl (6.4-8.2)
[2020-12-23 09:32] LABS: ALBUMIN 2.2 g/dl (3.4-5.0); SGPT/ALT < 6 U/L (13-61)
[2020-12-23] MEDS: CARVEDILOL 25 MG TABLET (FP) PO SCH ×2 (10:18→21:23)
[2020-12-23] MEDS: oxyCODONE HCL 5 MG TABLET PO PRN (10:39)
[2020-12-23] MEDS ORDERED: LIDOCAINE 1%/EPI 1:100000 (20 ML MULTI DOSE VIAL) ONE (12:37)
[2020-12-23] MEDS ORDERED: LIDOCAINE HCL/PF 2% SDV 5ML VIAL ONE (13:12)
[2020-12-23] MEDS ORDERED: PROPOFOL 20 ML ONE (13:12)
[2020-12-23] MEDS ORDERED: MIDAZOLAM HCL 2 MG/2 ML SINGLE DOSE VIAL ONE (13:13)
[2020-12-23] MEDS ORDERED: DEXAMETHASONE SOD PHOSPHATE 4 MG/1 ML VIAL ONE (13:52)
[2020-12-23] MEDS ORDERED: LIDOCAINE HCL 1%, 10 MG/ML (20ML VIAL) ONE (13:56)
[2020-12-23] MEDS ORDERED: LIDOCAINE HCL 1%, 10 MG/ML (20ML VIAL) NR ONE ×3 (14:02→14:42)
[2020-12-23] MEDS ORDERED: BUPIVACAINE HCL/PF 0.5% (5 MG/ML) 30 ML VIAL IJ ONE ×2 (14:02)
[2020-12-23] MEDS ORDERED: BETAMET ACET/BETAMET NA PH 30 MG/5 ML VIAL IM ONE ×2 (14:06→14:43)
[2020-12-23] MEDS ORDERED: BACITRACIN 50,000 UNITS VIAL TP ONE (15:11)
[2020-12-23] MEDS ORDERED: HYDROmorphone *PCA* 10MG/50ML DISP.SYRIN ONE (15:50)
[2020-12-23] MEDS ORDERED: ONDANSETRON 4 MG/2 ML VIAL IVPUSH PRN (15:50)
[2020-12-23] MEDS ORDERED: ACETAMINOPHEN 1000 MG/100 ML VIAL (NON FORMULARY) IVPB ONE ×2 (15:53→16:05)
[2020-12-23] MEDS ORDERED: HYDROmorphone *PCA* 10MG/50ML DISP.SYRIN PCA ONE (15:57)
[2020-12-23] MEDS ORDERED: ACETAMINOPHEN INJECTION 100 ML IVPB ONE (16:03)
[2020-12-23] MEDS: HYDROmorphone *PCA* 10MG/50ML DISP.SYRIN PCA SCH (18:20)
[2020-12-23] MEDS: LATANOPROST 0.005% OPHTH SOLN 2.5ML BOTTLE OU SCH (21:25)
[2020-12-24] MEDS ORDERED: MEROPENEM 1 GM VIAL (RESTRICTED TO ID) IVPB ONE ×3 (01:06→18:44)
[2020-12-24] MEDS ORDERED: DEXTROSE 5%-WATER 100 ML IVPB ONE ×3 (01:06→18:44)
[2020-12-24] MEDS: MEROPENEM 1 GM in DEXTROSE 5%-WATER 100 ML IVPB SCH ×3 (01:29→18:48)
[2020-12-24] MEDS ORDERED: PCA PUMP NR ONE (03:47)
[2020-12-24] MEDS: HYDROmorphone *PCA* 10MG/50ML DISP.SYRIN PCA SCH ×2 (03:54→18:54)
[2020-12-24] MEDS: VANCOMYCIN 1 GRAM (PRE-DOCKED) 1,000 MG/250 ML BAG IVPB SCH ×2 (04:58→16:53)
[2020-12-24] MEDS: BACLOFEN 10 MG TABLET (FP) PO SCH ×3 (05:27→21:29)
[2020-12-24] MEDS: GABAPENTIN 400 MG CAPSULE PO SCH ×3 (05:27→21:29)
[2020-12-24] MEDS: metFORMIN HCL 500 MG TABLET (FP) PO SCH (06:10)
[2020-12-24] MEDS: AMINO ACIDS/PROTEIN HYDROLYS 30 ML LIQUID.PKT PO SCH ×2 (08:16→16:52)
[2020-12-24] MEDS ORDERED: PT OWN MED DRAWER 7, Y5N ONE ×2 (09:27→10:28)
[2020-12-24] MEDS: CLOPIDOGREL BISULFATE 75 MG TABLET (FP) PO SCH (09:31)
[2020-12-24] MEDS: CARVEDILOL 25 MG TABLET (FP) PO SCH ×2 (09:31→21:29)
[2020-12-24] MEDS: LOSARTAN 50MG/HCTZ 12.5MG 1 TAB PO SCH (10:31)
[2020-12-24] MEDS: LATANOPROST 0.005% OPHTH SOLN 2.5ML BOTTLE OU SCH (21:29)
[2020-12-25] MEDS ORDERED: cefTRIAXone SODIUM 1 GM VIAL ONE ×2 (01:46→09:02)
[2020-12-25] MEDS ORDERED: DEXTROSE 5%-WATER - 50 ML IVPB ONE ×2 (01:47→09:02)
[2020-12-25] MEDS: CEFTRIAXONE 1 GM in DEXTROSE 5%-WATER - 50 ML IVPB SCH ×2 (01:52→09:04)
[2020-12-25] MEDS: VANCOMYCIN 1 GRAM (PRE-DOCKED) 1,000 MG/250 ML BAG IVPB SCH ×2 (04:40→18:55)
[2020-12-25] MEDS: BACLOFEN 10 MG TABLET (FP) PO SCH ×3 (05:00→22:48)
[2020-12-25] MEDS: GABAPENTIN 400 MG CAPSULE PO SCH ×3 (05:00→22:48)
[2020-12-25] MEDS: metFORMIN HCL 500 MG TABLET (FP) PO SCH (06:07)
[2020-12-25] MEDS ORDERED: PCA PUMP NR ONE (07:29)
[2020-12-25] MEDS: HYDROmorphone *PCA* 10MG/50ML DISP.SYRIN PCA SCH ×3 (07:31→18:29)
[2020-12-25] MEDS: AMINO ACIDS/PROTEIN HYDROLYS 30 ML LIQUID.PKT PO SCH ×2 (07:42→18:40)
[2020-12-25] MEDS ORDERED: PT OWN MED DRAWER 7, Y5N ONE (09:01)
[2020-12-25] MEDS: CARVEDILOL 25 MG TABLET (FP) PO SCH ×2 (09:04→22:48)
[2020-12-25] MEDS: LOSARTAN 50MG/HCTZ 12.5MG 1 TAB PO SCH (09:05)
[2020-12-25] MEDS: CLOPIDOGREL BISULFATE 75 MG TABLET (FP) PO SCH (10:05)
[2020-12-25] MEDS ORDERED: LIDOCAINE 1%/EPI 1:100000 (20 ML MULTI DOSE VIAL) ONE (13:57)
[2020-12-25] MEDS ORDERED: MINERAL OIL 25 ML OIL TP ONE (15:01)
[2020-12-25] MEDS ORDERED: LACTATED RINGERS SOLUTION 1,000 ML IV SCH (16:15)
[2020-12-25] MEDS ORDERED: ACETAMINOPHEN 500 MG TABLET (FP) PO PRN (17:29)
[2020-12-25] MEDS: LACTATED RINGERS SOLUTION 1,000 ML IV SCH ×2 (18:25→18:30)
[2020-12-25] MEDS: LATANOPROST 0.005% OPHTH SOLN 2.5ML BOTTLE OU SCH (22:48)
[2020-12-26] MEDS ORDERED: PCA PUMP NR ONE ×3 (04:07→23:15)
[2020-12-26] MEDS: HYDROmorphone *PCA* 10MG/50ML DISP.SYRIN PCA SCH ×2 (04:54→17:42)
[2020-12-26] MEDS: GABAPENTIN 400 MG CAPSULE PO SCH ×3 (06:31→21:46)
[2020-12-26] MEDS: metFORMIN HCL 500 MG TABLET (FP) PO SCH (06:31)
[2020-12-26] MEDS: VANCOMYCIN 1 GRAM (PRE-DOCKED) 1,000 MG/250 ML BAG IVPB SCH ×2 (06:31→17:53)
[2020-12-26] MEDS: BACLOFEN 10 MG TABLET (FP) PO SCH ×3 (06:31→21:47)
[2020-12-26 08:25] LABS: BASO % 0.6 % (0-2.0); EOS % 1.9 % (0-4.5); HEMATOCRIT 24.3 % (35.4-49); HEMOGLOBIN 8.1 GM/dL (11.7-16.9); LYMPH % 23.2 % (8-40); MCH 28.1 pg (25.7-33.7); MCHC 33.2 g/dl (32.0-35.9); MEAN CELL VOLUME 84.7 fl (80-96); MEAN PLT VOLUME 8.9 fl (7.5-11.1); MONO % 9.4 % (3.8-10.2); NEUT % 64.9 % (42.8-82.8); PLATELET COUNT 249 10^3/uL (134-434); RBC 2.87 M/mm3 (4.00-5.60); RDW 14.7 % (11.9-15.9); WHITE BLOOD COUNT 6.3 K/mm3 (4.0-10.0)
[2020-12-26 08:28] LABS: CALCIUM 7.6 mg/dL (8.5-10.1)
[2020-12-26 08:29] LABS: ALBUMIN 1.9 g/dl (3.4-5.0)
[2020-12-26 08:32] LABS: CREATININE 1.2 mg/dL (0.55-1.3)
[2020-12-26 08:33] LABS: BILIRUBIN,TOTAL 0.1 mg/dL (0.2-1); TOT PROT 6.3 g/dl (6.4-8.2)
[2020-12-26] MEDS ORDERED: cefTRIAXone SODIUM 1 GM VIAL ONE (08:48)
[2020-12-26] MEDS ORDERED: DEXTROSE 5%-WATER - 50 ML IVPB ONE (08:48)
[2020-12-26] MEDS: CARVEDILOL 25 MG TABLET (FP) PO SCH ×2 (09:32→21:47)
[2020-12-26] MEDS: LOSARTAN 50MG/HCTZ 12.5MG 1 TAB PO SCH (09:33)
[2020-12-26] MEDS: CEFTRIAXONE 1 GM in DEXTROSE 5%-WATER - 50 ML IVPB SCH (09:34)
[2020-12-26] MEDS ORDERED: PT OWN MED DRAWER 7, Y5N ONE ×2 (09:46→11:46)
[2020-12-26] MEDS: AMINO ACIDS/PROTEIN HYDROLYS 30 ML LIQUID.PKT PO SCH ×2 (09:48→16:38)
[2020-12-26] MEDS: LACTATED RINGERS SOLUTION 1,000 ML IV SCH ×2 (11:00→23:42)
[2020-12-26] MEDS: CLOPIDOGREL BISULFATE 75 MG TABLET (FP) PO SCH (11:48)
[2020-12-26] MEDS: LATANOPROST 0.005% OPHTH SOLN 2.5ML BOTTLE OU SCH (21:47)
[2020-12-27] MEDS: HYDROmorphone *PCA* 10MG/50ML DISP.SYRIN PCA SCH ×2 (05:00→17:25)
[2020-12-27] MEDS: BACLOFEN 10 MG TABLET (FP) PO SCH ×3 (06:16→20:59)
[2020-12-27] MEDS: metFORMIN HCL 500 MG TABLET (FP) PO SCH (06:16)
[2020-12-27] MEDS: GABAPENTIN 400 MG CAPSULE PO SCH ×3 (06:16→20:59)
[2020-12-27] MEDS: VANCOMYCIN 1 GRAM (PRE-DOCKED) 1,000 MG/250 ML BAG IVPB SCH (07:07)
[2020-12-27] MEDS ORDERED: cefTRIAXone SODIUM 1 GM VIAL ONE (08:34)
[2020-12-27] MEDS ORDERED: DEXTROSE 5%-WATER - 50 ML IVPB ONE (08:34)
[2020-12-27] MEDS: AMINO ACIDS/PROTEIN HYDROLYS 30 ML LIQUID.PKT PO SCH ×2 (08:52→17:19)
[2020-12-27] MEDS: CEFTRIAXONE 1 GM in DEXTROSE 5%-WATER - 50 ML IVPB SCH (09:13)
[2020-12-27] MEDS: CLOPIDOGREL BISULFATE 75 MG TABLET (FP) PO SCH (09:13)
[2020-12-27] MEDS: LOSARTAN 50MG/HCTZ 12.5MG 1 TAB PO SCH (09:14)
[2020-12-27] MEDS: CARVEDILOL 25 MG TABLET (FP) PO SCH ×2 (09:14→20:59)
[2020-12-27] MEDS: LACTATED RINGERS SOLUTION 1,000 ML IV SCH (13:16)
[2020-12-27] MEDS: VANCOMYCIN/WATER FOR INJ (PEG) 750 MG/150 ML BAG IVPB SCH (17:19)
[2020-12-27 17:49] VITALS: BMI 28.1
[2020-12-27] MEDS: LATANOPROST 0.005% OPHTH SOLN 2.5ML BOTTLE OU SCH (20:59)
[2020-12-27] MEDS: ASCORBIC ACID 500 MG TABLET (FP) PO SCH (20:59)
[2020-12-28] MEDS: GABAPENTIN 400 MG CAPSULE PO SCH ×3 (06:14→22:05)
[2020-12-28] MEDS: BACLOFEN 10 MG TABLET (FP) PO SCH ×3 (06:14→22:05)
[2020-12-28] MEDS: metFORMIN HCL 500 MG TABLET (FP) PO SCH (06:14)
[2020-12-28] MEDS: VANCOMYCIN/WATER FOR INJ (PEG) 750 MG/150 ML BAG IVPB SCH ×2 (06:44→17:25)
[2020-12-28 07:28] LABS: BASO % 1.2 % (0-2.0); EOS % 6.9 % (0-4.5); HEMATOCRIT 25.2 % (35.4-49); HEMOGLOBIN 8.3 GM/dL (11.7-16.9); LYMPH % 26.5 % (8-40); MEAN CELL VOLUME 84.9 fl (80-96); MEAN PLT VOLUME 9.2 fl (7.5-11.1); MONO % 9.1 % (3.8-10.2); NEUT % 56.3 % (42.8-82.8); PLATELET COUNT 269 10^3/uL (134-434); RBC 2.96 M/mm3 (4.00-5.60); RDW 15.4 % (11.9-15.9); WHITE BLOOD COUNT 6.1 K/mm3 (4.0-10.0)
[2020-12-28 07:46] LABS: ALBUMIN 2.1 g/dl (3.4-5.0); CALCIUM 8.1 mg/dL (8.5-10.1)
[2020-12-28 07:50] LABS: CREATININE 1.2 mg/dL (0.55-1.3)
[2020-12-28 07:52] LABS: BILIRUBIN,TOTAL 0.5 mg/dL (0.2-1); TOT PROT 6.8 g/dl (6.4-8.2)
[2020-12-28] MEDS ORDERED: cefTRIAXone SODIUM 1 GM VIAL ONE (09:06)
[2020-12-28] MEDS ORDERED: DEXTROSE 5%-WATER - 50 ML IVPB ONE (09:06)
[2020-12-28] MEDS ORDERED: PT OWN MED DRAWER 7, Y5N ONE ×2 (09:06→17:21)
[2020-12-28] MEDS: CEFTRIAXONE 1 GM in DEXTROSE 5%-WATER - 50 ML IVPB SCH (09:31)
[2020-12-28] MEDS: AMINO ACIDS/PROTEIN HYDROLYS 30 ML LIQUID.PKT PO SCH ×2 (09:31→17:25)
[2020-12-28] MEDS: CLOPIDOGREL BISULFATE 75 MG TABLET (FP) PO SCH (09:32)
[2020-12-28] MEDS: ZINC SULFATE 220 MG CAPSULE (FP) PO SCH (09:32)
[2020-12-28] MEDS: LOSARTAN 50MG/HCTZ 12.5MG 1 TAB PO SCH (09:32)
[2020-12-28] MEDS: ASCORBIC ACID 500 MG TABLET (FP) PO SCH ×2 (09:32→22:05)
[2020-12-28] MEDS: CARVEDILOL 25 MG TABLET (FP) PO SCH ×2 (09:33→22:03)
[2020-12-28] MEDS: MULTIVITAMINS (DAILY MVI) TABLET (FP) PO SCH (09:36)
[2020-12-28] MEDS ORDERED: ACETAMINOPHEN 325 MG TABLET (FP) PO PRN (12:40)
[2020-12-28] MEDS ORDERED: PCA PUMP NR ONE (15:10)
[2020-12-28] MEDS: HYDROmorphone *PCA* 10MG/50ML DISP.SYRIN PCA SCH ×2 (15:12→17:35)
[2020-12-28] MEDS: LACTATED RINGERS SOLUTION 1,000 ML IV SCH ×2 (17:25→17:35)
[2020-12-28] MEDS: LATANOPROST 0.005% OPHTH SOLN 2.5ML BOTTLE OU SCH (22:06)
[2020-12-29] MEDS ORDERED: PT OWN MED DRAWER 7, Y5N ONE ×3 (05:35→17:43)
[2020-12-29] MEDS: VANCOMYCIN/WATER FOR INJ (PEG) 750 MG/150 ML BAG IVPB SCH ×2 (05:55→17:48)
[2020-12-29] MEDS: BACLOFEN 10 MG TABLET (FP) PO SCH ×3 (05:55→21:16)
[2020-12-29] MEDS: GABAPENTIN 400 MG CAPSULE PO SCH ×3 (05:55→21:17)
[2020-12-29] MEDS: metFORMIN HCL 500 MG TABLET (FP) PO SCH (06:00)
[2020-12-29 08:25] LABS: BASO % 1.1 % (0-2.0); EOS % 6.6 % (0-4.5); HEMATOCRIT 24.4 % (35.4-49); HEMOGLOBIN 8.1 GM/dL (11.7-16.9); LYMPH % 23.3 % (8-40); MCH 28.3 pg (25.7-33.7); MCHC 33.2 g/dl (32.0-35.9); MEAN CELL VOLUME 85.3 fl (80-96); MEAN PLT VOLUME 9.3 fl (7.5-11.1); MONO % 8.1 % (3.8-10.2); NEUT % 60.9 % (42.8-82.8); PLATELET COUNT 267 10^3/uL (134-434); RBC 2.86 M/mm3 (4.00-5.60); RDW 15.3 % (11.9-15.9); WHITE BLOOD COUNT 7.1 K/mm3 (4.0-10.0)
[2020-12-29 08:51] LABS: CALCIUM 7.9 mg/dL (8.5-10.1)
[2020-12-29 08:52] LABS: BLOOD UREA NITROGEN 32.7 mg/dL (7-18)
[2020-12-29 08:53] LABS: ALBUMIN 2.2 g/dl (3.4-5.0)
[2020-12-29 08:55] LABS: CREATININE 1.2 mg/dL (0.55-1.3)
[2020-12-29 08:56] LABS: BILIRUBIN,TOTAL 0.2 mg/dL (0.2-1)
[2020-12-29] MEDS ORDERED: cefTRIAXone SODIUM 1 GM VIAL ONE (09:35)
[2020-12-29] MEDS ORDERED: DEXTROSE 5%-WATER - 50 ML IVPB ONE (09:35)
[2020-12-29] MEDS: CARVEDILOL 25 MG TABLET (FP) PO SCH ×2 (09:37→21:16)
[2020-12-29] MEDS: CEFTRIAXONE 1 GM in DEXTROSE 5%-WATER - 50 ML IVPB SCH (09:37)
[2020-12-29] MEDS: MULTIVITAMINS (DAILY MVI) TABLET (FP) PO SCH (09:37)
[2020-12-29] MEDS: ASCORBIC ACID 500 MG TABLET (FP) PO SCH ×2 (09:37→21:16)
[2020-12-29] MEDS: ZINC SULFATE 220 MG CAPSULE (FP) PO SCH (09:37)
[2020-12-29] MEDS: LOSARTAN 50MG/HCTZ 12.5MG 1 TAB PO SCH (09:38)
[2020-12-29] MEDS: CLOPIDOGREL BISULFATE 75 MG TABLET (FP) PO SCH (09:38)
[2020-12-29] MEDS: AMINO ACIDS/PROTEIN HYDROLYS 30 ML LIQUID.PKT PO SCH ×2 (09:45→17:49)
[2020-12-29] MEDS: HYDROmorphone *PCA* 10MG/50ML DISP.SYRIN PCA SCH ×2 (17:34→20:30)
[2020-12-29] MEDS: LACTATED RINGERS SOLUTION 1,000 ML IV SCH ×2 (17:47→20:35)
[2020-12-29] MEDS ORDERED: ACETAMINOPHEN 500 MG TABLET (FP) PO PRN (19:49)
[2020-12-29] MEDS ORDERED: ACETAMINOPHEN 325 MG TABLET (FP) PO PRN (19:57)
[2020-12-29] MEDS ORDERED: PCA PUMP NR ONE (20:11)
[2020-12-29] MEDS: LATANOPROST 0.005% OPHTH SOLN 2.5ML BOTTLE OU SCH (21:17)
[2020-12-30] MEDS ORDERED: PT OWN MED DRAWER 7, Y5N ONE ×4 (05:51→20:35)
[2020-12-30] MEDS: metFORMIN HCL 500 MG TABLET (FP) PO SCH (06:00)
[2020-12-30] MEDS: GABAPENTIN 400 MG CAPSULE PO SCH ×3 (06:00→20:59)
[2020-12-30] MEDS: BACLOFEN 10 MG TABLET (FP) PO SCH ×3 (06:00→20:59)
[2020-12-30] MEDS: VANCOMYCIN/WATER FOR INJ (PEG) 750 MG/150 ML BAG IVPB SCH ×2 (06:01→20:56)
[2020-12-30] MEDS ORDERED: PCA PUMP NR ONE (06:08)
[2020-12-30] MEDS: AMINO ACIDS/PROTEIN HYDROLYS 30 ML LIQUID.PKT PO SCH ×2 (08:44→18:29)
[2020-12-30 08:50] LABS: EOS % 8.1 % (0-4.5); HEMATOCRIT 24.7 % (35.4-49); HEMOGLOBIN 8.2 GM/dL (11.7-16.9); LYMPH % 19.4 % (8-40); MCH 28.1 pg (25.7-33.7); MEAN CELL VOLUME 85.2 fl (80-96); MEAN PLT VOLUME 9.3 fl (7.5-11.1); NEUT % 62.5 % (42.8-82.8); PLATELET COUNT 252 10^3/uL (134-434); RDW 15.4 % (11.9-15.9)
[2020-12-30] MEDS ORDERED: cefTRIAXone SODIUM 1 GM VIAL ONE (09:02)
[2020-12-30] MEDS ORDERED: DEXTROSE 5%-WATER - 50 ML IVPB ONE (09:03)
[2020-12-30 09:09] LABS: CHLORIDE 106 mmol/L (98-107); SODIUM 136 mmol/L (136-145)
[2020-12-30] MEDS: MULTIVITAMINS (DAILY MVI) TABLET (FP) PO SCH (09:11)
[2020-12-30] MEDS: CARVEDILOL 25 MG TABLET (FP) PO SCH ×2 (09:11→20:59)
[2020-12-30] MEDS: ASCORBIC ACID 500 MG TABLET (FP) PO SCH ×2 (09:11→20:59)
[2020-12-30] MEDS: CEFTRIAXONE 1 GM in DEXTROSE 5%-WATER - 50 ML IVPB SCH (09:11)
[2020-12-30] MEDS: CLOPIDOGREL BISULFATE 75 MG TABLET (FP) PO SCH (09:11)
[2020-12-30] MEDS: ZINC SULFATE 220 MG CAPSULE (FP) PO SCH (09:11)
[2020-12-30 09:12] LABS: ALBUMIN 2.1 g/dl (3.4-5.0); ANION GAP 1 MMOL/L (8-16); BLOOD UREA NITROGEN 28.6 mg/dL (7-18); CALCIUM 7.9 mg/dL (8.5-10.1); CO2 29 mmol/L (21-32)
[2020-12-30] MEDS: LOSARTAN 50MG/HCTZ 12.5MG 1 TAB PO SCH (09:12)
[2020-12-30] MEDS: oxyCODONE HCL 5 MG TABLET PO PRN ×2 (09:12→16:33)
[2020-12-30 09:13] LABS: GLUCOSE,RANDOM 91 mg/dL (74-106)
[2020-12-30 09:15] LABS: SGOT/AST 11 U/L (15-37)
[2020-12-30 09:17] LABS: BILIRUBIN,TOTAL 0.2 mg/dL (0.2-1); TOT PROT 6.7 g/dl (6.4-8.2)
[2020-12-30 09:18] LABS: ALK PHOS 44 U/L (45-117)
[2020-12-30 09:41] LABS: SGPT/ALT < 6 U/L (13-61)
[2020-12-30] MEDS: LACTATED RINGERS SOLUTION 1,000 ML IV SCH ×3 (12:40→20:55)
[2020-12-30] MEDS: LATANOPROST 0.005% OPHTH SOLN 2.5ML BOTTLE OU SCH (21:00)
[2020-12-31] MEDS ORDERED: PT OWN MED DRAWER 7, Y5N ONE ×3 (05:51→18:40)
[2020-12-31] MEDS: BACLOFEN 10 MG TABLET (FP) PO SCH ×3 (06:37→21:03)
[2020-12-31] MEDS: VANCOMYCIN/WATER FOR INJ (PEG) 750 MG/150 ML BAG IVPB SCH ×2 (06:37→18:43)
[2020-12-31] MEDS: metFORMIN HCL 500 MG TABLET (FP) PO SCH (06:37)
[2020-12-31] MEDS: GABAPENTIN 400 MG CAPSULE PO SCH ×3 (06:37→21:03)
[2020-12-31] MEDS ORDERED: DEXTROSE 5%-WATER - 50 ML IVPB ONE (09:52)
[2020-12-31] MEDS ORDERED: cefTRIAXone SODIUM 1 GM VIAL ONE (09:52)
[2020-12-31] MEDS: MULTIVITAMINS (DAILY MVI) TABLET (FP) PO SCH (10:00)
[2020-12-31] MEDS: LOSARTAN 50MG/HCTZ 12.5MG 1 TAB PO SCH (10:00)
[2020-12-31] MEDS: AMINO ACIDS/PROTEIN HYDROLYS 30 ML LIQUID.PKT PO SCH ×2 (10:00→18:43)
[2020-12-31] MEDS: CARVEDILOL 25 MG TABLET (FP) PO SCH ×2 (10:01→21:03)
[2020-12-31] MEDS: ZINC SULFATE 220 MG CAPSULE (FP) PO SCH (10:01)
[2020-12-31] MEDS: CLOPIDOGREL BISULFATE 75 MG TABLET (FP) PO SCH (10:01)
[2020-12-31] MEDS: ASCORBIC ACID 500 MG TABLET (FP) PO SCH ×2 (10:01→21:03)
[2020-12-31] MEDS: CEFTRIAXONE 1 GM in DEXTROSE 5%-WATER - 50 ML IVPB SCH (10:01)
[2020-12-31] MEDS: oxyCODONE HCL 5 MG TABLET PO PRN (10:39)
[2020-12-31] MEDS ORDERED: DOCUSATE SODIUM 100 MG CAPSULE (FP) PO PRN (15:45)
[2020-12-31] MEDS: LACTATED RINGERS SOLUTION 1,000 ML IV SCH (18:42)
[2020-12-31] MEDS: LATANOPROST 0.005% OPHTH SOLN 2.5ML BOTTLE OU SCH (21:05)
[2021-01-01] MEDS ORDERED: PT OWN MED DRAWER 7, Y5N ONE ×3 (05:09→17:18)
[2021-01-01] MEDS: GABAPENTIN 400 MG CAPSULE PO SCH ×3 (05:36→21:38)
[2021-01-01] MEDS: BACLOFEN 10 MG TABLET (FP) PO SCH ×3 (05:36→21:38)
[2021-01-01] MEDS: VANCOMYCIN/WATER FOR INJ (PEG) 750 MG/150 ML BAG IVPB SCH ×2 (05:36→17:25)
[2021-01-01] MEDS: metFORMIN HCL 500 MG TABLET (FP) PO SCH (06:15)
[2021-01-01] MEDS: AMINO ACIDS/PROTEIN HYDROLYS 30 ML LIQUID.PKT PO SCH ×2 (08:41→17:25)
[2021-01-01] MEDS ORDERED: DEXTROSE 5%-WATER - 50 ML IVPB ONE (09:57)
[2021-01-01] MEDS ORDERED: cefTRIAXone SODIUM 1 GM VIAL ONE (09:57)
[2021-01-01] MEDS: LACTATED RINGERS SOLUTION 1,000 ML IV SCH ×2 (10:03→21:38)
[2021-01-01] MEDS: CEFTRIAXONE 1 GM in DEXTROSE 5%-WATER - 50 ML IVPB SCH (10:05)
[2021-01-01] MEDS: MULTIVITAMINS (DAILY MVI) TABLET (FP) PO SCH (10:08)
[2021-01-01] MEDS: ASCORBIC ACID 500 MG TABLET (FP) PO SCH ×2 (10:08→21:38)
[2021-01-01] MEDS: CARVEDILOL 25 MG TABLET (FP) PO SCH ×2 (10:08→21:37)
[2021-01-01] MEDS: LOSARTAN 50MG/HCTZ 12.5MG 1 TAB PO SCH (10:08)
[2021-01-01] MEDS: CLOPIDOGREL BISULFATE 75 MG TABLET (FP) PO SCH (10:08)
[2021-01-01] MEDS: ZINC SULFATE 220 MG CAPSULE (FP) PO SCH (10:08)
[2021-01-01] MEDS: LATANOPROST 0.005% OPHTH SOLN 2.5ML BOTTLE OU SCH (21:39)
[2021-01-02] MEDS: LACTATED RINGERS SOLUTION 1,000 ML IV SCH ×4 (01:27→21:21)
[2021-01-02] MEDS ORDERED: PT OWN MED DRAWER 7, Y5N ONE (05:40)
[2021-01-02] MEDS: VANCOMYCIN/WATER FOR INJ (PEG) 750 MG/150 ML BAG IVPB SCH ×2 (06:28→17:24)
[2021-01-02] MEDS: BACLOFEN 10 MG TABLET (FP) PO SCH ×3 (06:29→21:18)
[2021-01-02] MEDS: GABAPENTIN 400 MG CAPSULE PO SCH ×3 (06:29→21:18)
[2021-01-02] MEDS: metFORMIN HCL 500 MG TABLET (FP) PO SCH (06:29)
[2021-01-02 09:49] LABS: BASO % 1.1 % (0-2.0); EOS % 3.1 % (0-4.5); HEMATOCRIT 24.8 % (35.4-49); HEMOGLOBIN 8.4 GM/dL (11.7-16.9); LYMPH % 21.7 % (8-40); MCH 28.2 pg (25.7-33.7); MCHC 33.7 g/dl (32.0-35.9); MEAN CELL VOLUME 83.5 fl (80-96); MEAN PLT VOLUME 9.3 fl (7.5-11.1); MONO % 14.1 % (3.8-10.2); PLATELET COUNT 238 10^3/uL (134-434); RBC 2.98 M/mm3 (4.00-5.60); RDW 15.2 % (11.9-15.9); WHITE BLOOD COUNT 4.1 K/mm3 (4.0-10.0)
[2021-01-02] MEDS ORDERED: cefTRIAXone SODIUM 1 GM VIAL ONE (10:05)
[2021-01-02] MEDS ORDERED: DEXTROSE 5%-WATER - 50 ML IVPB ONE (10:05)
[2021-01-02] MEDS: MULTIVITAMINS (DAILY MVI) TABLET (FP) PO SCH (10:10)
[2021-01-02] MEDS: AMINO ACIDS/PROTEIN HYDROLYS 30 ML LIQUID.PKT PO SCH ×2 (10:10→17:28)
[2021-01-02] MEDS: ASCORBIC ACID 500 MG TABLET (FP) PO SCH ×2 (10:10→21:18)
[2021-01-02] MEDS: ZINC SULFATE 220 MG CAPSULE (FP) PO SCH (10:10)
[2021-01-02] MEDS: CARVEDILOL 25 MG TABLET (FP) PO SCH ×2 (10:10→21:18)
[2021-01-02] MEDS: LOSARTAN 50MG/HCTZ 12.5MG 1 TAB PO SCH (10:10)
[2021-01-02] MEDS: CLOPIDOGREL BISULFATE 75 MG TABLET (FP) PO SCH (10:10)
[2021-01-02] MEDS: CEFTRIAXONE 1 GM in DEXTROSE 5%-WATER - 50 ML IVPB SCH (10:12)
[2021-01-02 10:14] LABS: ALBUMIN 2.2 g/dl (3.4-5.0); BLOOD UREA NITROGEN 27.3 mg/dL (7-18); CALCIUM 7.8 mg/dL (8.5-10.1)
[2021-01-02 10:19] LABS: BILIRUBIN,TOTAL 0.2 mg/dL (0.2-1); TOT PROT 7.3 g/dl (6.4-8.2)
[2021-01-02] MEDS: metroNIDAZOLE 250 MG TABLET PO SCH (21:18)
[2021-01-02] MEDS: LATANOPROST 0.005% OPHTH SOLN 2.5ML BOTTLE OU SCH (21:24)
[2021-01-03] MEDS ORDERED: PT OWN MED DRAWER 7, Y5N ONE ×3 (05:43→17:10)
[2021-01-03] MEDS: GABAPENTIN 400 MG CAPSULE PO SCH ×3 (06:20→21:03)
[2021-01-03] MEDS: VANCOMYCIN/WATER FOR INJ (PEG) 750 MG/150 ML BAG IVPB SCH ×2 (06:20→17:20)
[2021-01-03] MEDS: metroNIDAZOLE 250 MG TABLET PO SCH ×3 (06:20→21:03)
[2021-01-03] MEDS: BACLOFEN 10 MG TABLET (FP) PO SCH ×3 (06:20→21:03)
[2021-01-03] MEDS: metFORMIN HCL 500 MG TABLET (FP) PO SCH (06:20)
[2021-01-03] MEDS ORDERED: cefTRIAXone SODIUM 1 GM VIAL ONE (10:12)
[2021-01-03] MEDS ORDERED: DEXTROSE 5%-WATER - 50 ML IVPB ONE (10:12)
[2021-01-03] MEDS: CLOPIDOGREL BISULFATE 75 MG TABLET (FP) PO SCH (10:19)
[2021-01-03] MEDS: ASCORBIC ACID 500 MG TABLET (FP) PO SCH ×2 (10:20→21:03)
[2021-01-03] MEDS: MULTIVITAMINS (DAILY MVI) TABLET (FP) PO SCH (10:20)
[2021-01-03] MEDS: CEFTRIAXONE 1 GM in DEXTROSE 5%-WATER - 50 ML IVPB SCH (10:20)
[2021-01-03] MEDS: AMINO ACIDS/PROTEIN HYDROLYS 30 ML LIQUID.PKT PO SCH ×2 (10:22→17:20)
[2021-01-03] MEDS: CARVEDILOL 25 MG TABLET (FP) PO SCH ×2 (10:22→21:03)
[2021-01-03] MEDS: ZINC SULFATE 220 MG CAPSULE (FP) PO SCH (10:25)
[2021-01-03] MEDS: LOSARTAN 50MG/HCTZ 12.5MG 1 TAB PO SCH (10:25)
[2021-01-03] MEDS: LATANOPROST 0.005% OPHTH SOLN 2.5ML BOTTLE OU SCH (21:06)
[2021-01-04] MEDS ORDERED: PT OWN MED DRAWER 7, Y5N ONE (05:10)
[2021-01-04] MEDS: GABAPENTIN 400 MG CAPSULE PO SCH ×3 (05:14→21:58)
[2021-01-04] MEDS: VANCOMYCIN/WATER FOR INJ (PEG) 750 MG/150 ML BAG IVPB SCH ×2 (05:14→17:10)
[2021-01-04] MEDS: BACLOFEN 10 MG TABLET (FP) PO SCH ×3 (05:14→21:58)
[2021-01-04] MEDS: metroNIDAZOLE 250 MG TABLET PO SCH ×3 (05:14→21:58)
[2021-01-04] MEDS: metFORMIN HCL 500 MG TABLET (FP) PO SCH (06:39)
[2021-01-04] MEDS ORDERED: DEXTROSE 5%-WATER - 50 ML IVPB ONE (09:00)
[2021-01-04] MEDS ORDERED: cefTRIAXone SODIUM 1 GM VIAL ONE (09:00)
[2021-01-04] MEDS: CEFTRIAXONE 1 GM in DEXTROSE 5%-WATER - 50 ML IVPB SCH (09:10)
[2021-01-04] MEDS: CLOPIDOGREL BISULFATE 75 MG TABLET (FP) PO SCH (09:11)
[2021-01-04] MEDS: LOSARTAN 50MG/HCTZ 12.5MG 1 TAB PO SCH (09:11)
[2021-01-04] MEDS: ASCORBIC ACID 500 MG TABLET (FP) PO SCH ×2 (09:11→21:58)
[2021-01-04] MEDS: ZINC SULFATE 220 MG CAPSULE (FP) PO SCH (09:11)
[2021-01-04] MEDS: MULTIVITAMINS (DAILY MVI) TABLET (FP) PO SCH (09:11)
[2021-01-04] MEDS: CARVEDILOL 25 MG TABLET (FP) PO SCH ×2 (09:11→21:58)
[2021-01-04] MEDS: AMINO ACIDS/PROTEIN HYDROLYS 30 ML LIQUID.PKT PO SCH ×2 (09:15→17:10)
[2021-01-04 10:08] LABS: BASO % 1.3 % (0-2.0); EOS % 1.7 % (0-4.5); HEMATOCRIT 26.5 % (35.4-49); HEMOGLOBIN 8.7 GM/dL (11.7-16.9); LYMPH % 20.7 % (8-40); MCHC 33.1 g/dl (32.0-35.9); MEAN CELL VOLUME 84.7 fl (80-96); MEAN PLT VOLUME 9.7 fl (7.5-11.1); MONO % 15.6 % (3.8-10.2); NEUT % 60.7 % (42.8-82.8); PLATELET COUNT 246 10^3/uL (134-434); RBC 3.13 M/mm3 (4.00-5.60); RDW 15.4 % (11.9-15.9); WHITE BLOOD COUNT 3.2 K/mm3 (4.0-10.0)
[2021-01-04 10:38] LABS: ALBUMIN 2.3 g/dl (3.4-5.0); BLOOD UREA NITROGEN 31.3 mg/dL (7-18); CALCIUM 7.8 mg/dL (8.5-10.1)
[2021-01-04 10:41] LABS: CREATININE 1.2 mg/dL (0.55-1.3)
[2021-01-04 10:43] LABS: BILIRUBIN,TOTAL 0.2 mg/dL (0.2-1); TOT PROT 7.4 g/dl (6.4-8.2)
[2021-01-04] MEDS: LATANOPROST 0.005% OPHTH SOLN 2.5ML BOTTLE OU SCH (22:50)
[2021-01-05] MEDS: VANCOMYCIN/WATER FOR INJ (PEG) 750 MG/150 ML BAG IVPB SCH (06:44)
[2021-01-05] MEDS: metroNIDAZOLE 250 MG TABLET PO SCH ×2 (06:44→14:19)
[2021-01-05] MEDS: GABAPENTIN 400 MG CAPSULE PO SCH ×2 (06:44→14:19)
[2021-01-05] MEDS: BACLOFEN 10 MG TABLET (FP) PO SCH ×2 (06:44→14:19)
[2021-01-05] MEDS: metFORMIN HCL 500 MG TABLET (FP) PO SCH (06:50)
[2021-01-05] MEDS: AMINO ACIDS/PROTEIN HYDROLYS 30 ML LIQUID.PKT PO SCH (08:59)
[2021-01-05] MEDS ORDERED: cefTRIAXone SODIUM 1 GM VIAL ONE (09:58)
[2021-01-05] MEDS ORDERED: PT OWN MED DRAWER 7, Y5N ONE (09:58)
[2021-01-05] MEDS ORDERED: DEXTROSE 5%-WATER - 50 ML IVPB ONE (09:58)
[2021-01-05] MEDS: LOSARTAN 50MG/HCTZ 12.5MG 1 TAB PO SCH (10:00)
[2021-01-05] MEDS: ZINC SULFATE 220 MG CAPSULE (FP) PO SCH (10:00)
[2021-01-05] MEDS: MULTIVITAMINS (DAILY MVI) TABLET (FP) PO SCH (10:00)
[2021-01-05] MEDS: CLOPIDOGREL BISULFATE 75 MG TABLET (FP) PO SCH (10:00)
[2021-01-05] MEDS: ASCORBIC ACID 500 MG TABLET (FP) PO SCH (10:00)
[2021-01-05] MEDS: CARVEDILOL 25 MG TABLET (FP) PO SCH (10:00)
[2021-01-05] MEDS: CEFTRIAXONE 1 GM in DEXTROSE 5%-WATER - 50 ML IVPB SCH (10:00)
[2021-01-05 13:00] VITALS: BP 98/56; PULSE 70; TEMP 98.6
== END 2021-01-05 17:29 | DRG 574 ==
LOC: JER 17:51 → JERBED 20:38 → J8W 12-21 00:21
PROVIDERS: ADMIT Internal Medicine; ATTEND Internal Medicine
PROC: 0JBR0ZZ Excision of Left Foot Subcutaneous Tissue and Fascia, Open Approach (ICD-10-PCS; 2020-12-23)
PROC: 0HBJXZZ Excision of Left Upper Leg Skin, External Approach (ICD-10-PCS; 2020-12-23)
PROC: 2W1TX6Z Compression of Left Foot using Pressure Dressing (ICD-10-PCS; 2020-12-23)
PROC: 2W1TX6Z Compression of Left Foot using Pressure Dressing (ICD-10-PCS; 2020-12-25)
PROC: 0HRNX74 Replacement of Left Foot Skin with Autologous Tissue Substitute, Partial Thickness, External Approach (ICD-10-PCS; principal; 2020-12-25 15:00)
DX: L03.116 Cellulitis of left lower limb (principal); M86.9 Osteomyelitis, unspecified; L88 Pyoderma gangrenosum; L97.919 Non-pressure chronic ulcer of unspecified part of right lower leg with unspecified severity; L97.909 Non-pressure chronic ulcer of unspecified part of unspecified lower leg with unspecified severity; E11.51 Type 2 diabetes mellitus with diabetic peripheral angiopathy without gangrene; L03.119 Cellulitis of unspecified part of limb; E11.621 Type 2 diabetes mellitus with foot ulcer; E13.621 Other specified diabetes mellitus with foot ulcer; L08.9 Local infection of the skin and subcutaneous tissue, unspecified; E11.42 Type 2 diabetes mellitus with diabetic polyneuropathy; M79.672 Pain in left foot; E11.69 Type 2 diabetes mellitus with other specified complication; N40.0 Benign prostatic hyperplasia without lower urinary tract symptoms; E78.5 Hyperlipidemia, unspecified; E11.40 Type 2 diabetes mellitus with diabetic neuropathy, unspecified; I10 Essential (primary) hypertension; I12.9 Hypertensive chronic kidney disease with stage 1 through stage 4 chronic kidney disease, or unspecified chronic kidney disease; I87.2 Venous insufficiency (chronic) (peripheral); I25.119 Atherosclerotic heart disease of native coronary artery with unspecified angina pectoris; E11.22 Type 2 diabetes mellitus with diabetic chronic kidney disease; N18.9 Chronic kidney disease, unspecified; B96.4 Proteus (mirabilis) (morganii) as the cause of diseases classified elsewhere; E66.9 Obesity, unspecified; Z68.28 Body mass index [BMI] 28.0-28.9, adult
CPT/HCPCS: 36415; 71045-TC-FY; 80053; 82550; 82553; 82962; 84484; 85025; 85610; 85651; 85730; 86140; 86850; 86900; 86901; 87040; 87070; 87186; 87205; 93005; 93010; 94760; 97116-GP; 97161-GP; 99285-25; C9803; G0480; J0131; J0475; U0003; U0005

== ENCOUNTER 2021-02-15 09:57 | Inpatient (IN) | payer OTHER ==
[2021-02-15] MEDS ORDERED: GABAPENTIN 400 MG CAPSULE PO ONE (10:46)
[2021-02-15] MEDS ORDERED: GABAPENTIN 100 MG CAPSULE ONE (10:55)
[2021-02-15] MEDS ORDERED: LACTATED RINGERS SOLUTION 1000 ML INFUS.BAG IV ONE (11:24)
[2021-02-15 11:29] LABS: BASO % 0.5 % (0-2.0); HEMATOCRIT 32.7 % (35.4-49); HEMOGLOBIN 10.8 GM/dL (11.7-16.9); LYMPH % 11.1 % (8-40); MCH 28.4 pg (25.7-33.7); MEAN PLT VOLUME 9.9 fl (7.5-11.1); MONO % 4.9 % (3.8-10.2); NEUT % 83.5 % (42.8-82.8); PLATELET COUNT 259 10^3/uL (134-434); RDW 17.2 % (11.9-15.9); WHITE BLOOD COUNT 8.1 K/mm3 (4.0-10.0)
[2021-02-15 11:35] LABS: INR 1.24 (0.83-1.09); PROTHROMBIN TIME (PATIENT) 13.9 SEC (9.7-13.0)
[2021-02-15 11:37] LABS: ACTIVATED PTT 31.7 SECONDS (25.2-36.5)
[2021-02-15 11:42] LABS: CHLORIDE 105 mmol/L (98-107); SODIUM 137 mmol/L (136-145)
[2021-02-15 11:44] LABS: CALCIUM 8.9 mg/dL (8.5-10.1)
[2021-02-15 11:45] LABS: ALBUMIN 3.1 g/dl (3.4-5.0); ANION GAP 7 MMOL/L (8-16); BLOOD UREA NITROGEN 21.6 mg/dL (7-18); CO2 25 mmol/L (21-32); GLUCOSE,RANDOM 114 mg/dL (74-106); MAGNESIUM 1.8 mg/dL (1.8-2.4)
[2021-02-15 11:48] LABS: CREATININE 1.1 mg/dL (0.55-1.3); SGOT/AST 24 U/L (15-37); SGPT/ALT 14 U/L (13-61)
[2021-02-15 11:50] LABS: BILIRUBIN,TOTAL 0.6 mg/dL (0.2-1); TOT PROT 9.1 g/dl (6.4-8.2)
[2021-02-15 11:51] LABS: ALK PHOS 80 U/L (45-117)
[2021-02-15] MEDS ORDERED: DOCUSATE SODIUM 100 MG CAPSULE (FP) PO PRN (14:22)
[2021-02-15] MEDS ORDERED: LOSARTAN POTASSIUM 50 MG TABLET ONE (16:47)
[2021-02-15] MEDS: D5-1/2NS+20 MEQ KCL - 20 MEQ/1,000 ML INFUS.BAG IV SCH (17:10)
[2021-02-15] MEDS: LOSARTAN POTASSIUM 50 MG TABLET PO SCH (17:10)
[2021-02-15 17:56] LABS: MAGNESIUM 2.3 mg/dL (1.8-2.4)
[2021-02-15 17:59] LABS: CHOLESTEROL 108 mg/dL (50-200); TRIGLYCERIDES 53 mg/dL (0-150)
[2021-02-15 18:01] LABS: LDL CHOLESTEROL (ONLY SJRH) 50 mg/dL (5-100)
[2021-02-15 18:02] LABS: HDL CHOLESTEROL 54 mg/dL (40-60)
[2021-02-15] MEDS: AMINO ACIDS/PROTEIN HYDROLYS 30 ML LIQUID.PKT PO SCH (18:43)
[2021-02-15] MEDS: PRAMIPEXOLE DIHYDROCHLORIDE 0.5 MG TABLET PO SCH (21:12)
[2021-02-15] MEDS: HEPARIN NA (PORCINE) 5,000 UNITS/ML 1ML VIAL SQ SCH (21:12)
[2021-02-15] MEDS: BACLOFEN 10 MG TABLET (FP) PO SCH (21:12)
[2021-02-15] MEDS: GABAPENTIN 400 MG CAPSULE PO SCH (21:12)
[2021-02-15] MEDS: CARVEDILOL 25 MG TABLET (FP) PO SCH (21:12)
[2021-02-16] MEDS: LATANOPROST 0.005% OPHTH SOLN 2.5ML BOTTLE OU SCH ×2 (00:48→22:56)
[2021-02-16] MEDS: D5-1/2NS+20 MEQ KCL - 20 MEQ/1,000 ML INFUS.BAG IV SCH ×3 (06:36→23:21)
[2021-02-16] MEDS: BACLOFEN 10 MG TABLET (FP) PO SCH ×3 (06:38→22:56)
[2021-02-16] MEDS: GABAPENTIN 400 MG CAPSULE PO SCH ×3 (06:38→22:56)
[2021-02-16 08:35] LABS: BASO % 0.4 % (0-2.0); EOS % 0.2 % (0-4.5); HEMATOCRIT 28.8 % (35.4-49); HEMOGLOBIN 9.7 GM/dL (11.7-16.9); LYMPH % 19.7 % (8-40); MCH 28.6 pg (25.7-33.7); MCHC 33.6 g/dl (32.0-35.9); MEAN PLT VOLUME 10.1 fl (7.5-11.1); MONO % 8.3 % (3.8-10.2); NEUT % 71.4 % (42.8-82.8); PLATELET COUNT 232 10^3/uL (134-434); RBC 3.38 M/mm3 (4.00-5.60); WHITE BLOOD COUNT 6.5 K/mm3 (4.0-10.0)
[2021-02-16 08:52] LABS: BLOOD UREA NITROGEN 17.1 mg/dL (7-18); CALCIUM 8.5 mg/dL (8.5-10.1)
[2021-02-16 08:53] LABS: ALBUMIN 2.7 g/dl (3.4-5.0)
[2021-02-16 08:55] LABS: CREATININE 1.1 mg/dL (0.55-1.3)
[2021-02-16 08:57] LABS: BILIRUBIN,TOTAL 0.6 mg/dL (0.2-1); TOT PROT 7.8 g/dl (6.4-8.2)
[2021-02-16] MEDS ORDERED: FLU VACC QS2021-22(6MOS UP)/PF 60 MCG/0.5 ML SYRINGE IM ONE (10:00)
[2021-02-16] MEDS ORDERED: PNEUMOC 13-VAL CONJ-DIP CRM/PF 0.5 ML DISP.SYRIN IM ONE (10:00)
[2021-02-16] MEDS ORDERED: PT OWN MED DRAWER 7, Y5N ONE (11:08)
[2021-02-16] MEDS: CARVEDILOL 25 MG TABLET (FP) PO SCH ×2 (11:10→22:56)
[2021-02-16] MEDS: PRAMIPEXOLE DIHYDROCHLORIDE 0.5 MG TABLET PO SCH ×2 (11:10→22:56)
[2021-02-16] MEDS: LOSARTAN POTASSIUM 50 MG TABLET PO SCH (11:10)
[2021-02-16] MEDS: CLOPIDOGREL BISULFATE 75 MG TABLET (FP) PO SCH (11:10)
[2021-02-16] MEDS: AMINO ACIDS/PROTEIN HYDROLYS 30 ML LIQUID.PKT PO SCH ×2 (11:10→17:01)
[2021-02-16] MEDS: HEPARIN NA (PORCINE) 5,000 UNITS/ML 1ML VIAL SQ SCH ×2 (11:10→22:56)
[2021-02-16] MEDS: FINASTERIDE 5 MG TABLET (FP) PO SCH (11:10)
[2021-02-16 15:57] LABS: HEMOGLOBIN 9.6 GM/dL (11.7-16.9); MCH 28.4 pg (25.7-33.7); MCHC 33.3 g/dl (32.0-35.9); MEAN CELL VOLUME 85.3 fl (80-96); MEAN PLT VOLUME 10.2 fl (7.5-11.1); PLATELET COUNT 225 10^3/uL (134-434); RDW 17.1 % (11.9-15.9); WHITE BLOOD COUNT 6.8 K/mm3 (4.0-10.0)
[2021-02-16] MEDS ORDERED: DEXTROSE 5%-WATER - 50 ML IVPB ONE (16:48)
[2021-02-16] MEDS ORDERED: cefTRIAXone SODIUM 1 GM VIAL ONE (16:48)
[2021-02-16] MEDS: CHLORHEXIDINE GLUCONATE 4% CLEANSER FOR DECOLONIZATION TP SCH (17:00)
[2021-02-16] MEDS: CEFTRIAXONE 1 GM in DEXTROSE 5%-WATER - 50 ML IVPB SCH (17:00)
[2021-02-16 18:10] LABS: PH,URINE 7.5 (5.0-8.0); URINE APPEARANCE CLEAR; URINE BILIRUBIN NEGATIVE (NEGATIVE); URINE COLOR YELLOW; URINE GLUCOSE (UA) NEGATIVE (NEGATIVE); URINE KETONE NEGATIVE (NEGATIVE); URINE LEUK ESTERASE NEGATIVE (NEGATIVE); URINE NITRITE NEGATIVE (NEGATIVE); URINE PROTEIN NEGATIVE (NEGATIVE)
[2021-02-16 18:18] LABS: URINE BARBITURATES NEGATIVE (NEGATIVE)
[2021-02-16 18:19] LABS: COCAINE, UR NEGATIVE (NEGATIVE); PHENCYCLIDINE,URINE NEGATIVE (NEGATIVE); URINE BENZODIAZEPINES NEGATIVE (NEGATIVE)
[2021-02-16 18:20] LABS: METHADONE, UR NEGATIVE (NEGATIVE); OPIATES, URI POSITIVE (NEGATIVE); URINE AMPHETAMINES NEGATIVE (NEGATIVE)
[2021-02-16] MEDS: POLYETHYLENE GLYCOL 3350 119 GM BTL PO SCH ×2 (23:01→23:04)
[2021-02-16] MEDS: POLYETHYLENE GLYCOL (HEALTHYLAX) 3350 17 GM PACKET PO SCH (23:04)
[2021-02-17] MEDS: CHLORHEXIDINE GLUCONATE 4% CLEANSER FOR DECOLONIZATION TP SCH ×2 (00:30→21:14)
[2021-02-17] MEDS: BACLOFEN 10 MG TABLET (FP) PO SCH ×3 (05:55→21:13)
[2021-02-17] MEDS: POLYETHYLENE GLYCOL (HEALTHYLAX) 3350 17 GM PACKET PO SCH ×3 (05:55→21:15)
[2021-02-17] MEDS: GABAPENTIN 400 MG CAPSULE PO SCH ×3 (05:55→21:13)
[2021-02-17] MEDS ORDERED: DEXTROSE 5%-WATER - 50 ML IVPB ONE (11:13)
[2021-02-17] MEDS ORDERED: cefTRIAXone SODIUM 1 GM VIAL ONE (11:13)
[2021-02-17] MEDS: PANTOPRAZOLE 40 MG TABLET PO SCH (11:14)
[2021-02-17] MEDS: PRAMIPEXOLE DIHYDROCHLORIDE 0.5 MG TABLET PO SCH ×2 (11:15→21:13)
[2021-02-17] MEDS: LOSARTAN POTASSIUM 50 MG TABLET PO SCH ×2 (11:15→11:28)
[2021-02-17] MEDS: HEPARIN NA (PORCINE) 5,000 UNITS/ML 1ML VIAL SQ SCH ×2 (11:15→21:14)
[2021-02-17] MEDS: CARVEDILOL 25 MG TABLET (FP) PO SCH ×4 (11:15→21:12)
[2021-02-17] MEDS: FINASTERIDE 5 MG TABLET (FP) PO SCH (11:15)
[2021-02-17] MEDS: CLOPIDOGREL BISULFATE 75 MG TABLET (FP) PO SCH (11:15)
[2021-02-17] MEDS: CEFTRIAXONE 1 GM in DEXTROSE 5%-WATER - 50 ML IVPB SCH (11:23)
[2021-02-17] MEDS: AMINO ACIDS/PROTEIN HYDROLYS 30 ML LIQUID.PKT PO SCH ×2 (11:24→17:24)
[2021-02-17 15:35] VITALS: BMI 27.9
[2021-02-17] MEDS: INSULIN (NOVOLOG MIX 70/30) 100 UNITS/ML MDV SQ SCH (17:11)
[2021-02-17] MEDS: D5-1/2NS+20 MEQ KCL - 20 MEQ/1,000 ML INFUS.BAG IV SCH (17:26)
[2021-02-17 18:09] LABS: FREE KAPPA,SERUM 89.3 mg/L (3.3-19.4)
[2021-02-17] MEDS: LATANOPROST 0.005% OPHTH SOLN 2.5ML BOTTLE OU SCH (21:16)
[2021-02-18] MEDS: GABAPENTIN 400 MG CAPSULE PO SCH ×3 (06:02→23:16)
[2021-02-18] MEDS: POLYETHYLENE GLYCOL (HEALTHYLAX) 3350 17 GM PACKET PO SCH ×4 (06:02→23:20)
[2021-02-18] MEDS: BACLOFEN 10 MG TABLET (FP) PO SCH ×3 (06:02→23:16)
[2021-02-18] MEDS: D5-1/2NS+20 MEQ KCL - 20 MEQ/1,000 ML INFUS.BAG IV SCH ×3 (06:02→23:12)
[2021-02-18] MEDS: INSULIN (NOVOLOG MIX 70/30) 100 UNITS/ML MDV SQ SCH ×2 (06:06→17:15)
[2021-02-18 08:12] LABS: BASO % 0.7 % (0-2.0); EOS % 3.5 % (0-4.5); HEMATOCRIT 27.9 % (35.4-49); HEMOGLOBIN 9.5 GM/dL (11.7-16.9); LYMPH % 21.6 % (8-40); MCH 28.9 pg (25.7-33.7); MCHC 33.9 g/dl (32.0-35.9); MEAN CELL VOLUME 85.4 fl (80-96); MEAN PLT VOLUME 9.9 fl (7.5-11.1); MONO % 10.6 % (3.8-10.2); NEUT % 63.6 % (42.8-82.8); PLATELET COUNT 207 10^3/uL (134-434); RBC 3.27 M/mm3 (4.00-5.60); WHITE BLOOD COUNT 5.7 K/mm3 (4.0-10.0)
[2021-02-18 08:29] LABS: CALCIUM 7.9 mg/dL (8.5-10.1)
[2021-02-18 08:30] LABS: ALBUMIN 2.4 g/dl (3.4-5.0); BLOOD UREA NITROGEN 16.3 mg/dL (7-18)
[2021-02-18 08:33] LABS: CREATININE 1.1 mg/dL (0.55-1.3)
[2021-02-18 08:34] LABS: BILIRUBIN,TOTAL 0.3 mg/dL (0.2-1); TOT PROT 7.4 g/dl (6.4-8.2)
[2021-02-18] MEDS ORDERED: cefTRIAXone SODIUM 1 GM VIAL ONE (10:47)
[2021-02-18] MEDS ORDERED: DEXTROSE 5%-WATER - 50 ML IVPB ONE (10:47)
[2021-02-18] MEDS: AMINO ACIDS/PROTEIN HYDROLYS 30 ML LIQUID.PKT PO SCH ×2 (10:51→18:01)
[2021-02-18] MEDS: CEFTRIAXONE 1 GM in DEXTROSE 5%-WATER - 50 ML IVPB SCH (10:51)
[2021-02-18] MEDS: PANTOPRAZOLE 40 MG TABLET PO SCH (10:52)
[2021-02-18] MEDS: FINASTERIDE 5 MG TABLET (FP) PO SCH (10:53)
[2021-02-18] MEDS: LOSARTAN POTASSIUM 50 MG TABLET PO SCH (10:53)
[2021-02-18] MEDS: CARVEDILOL 25 MG TABLET (FP) PO SCH ×2 (10:53→23:15)
[2021-02-18] MEDS: CLOPIDOGREL BISULFATE 75 MG TABLET (FP) PO SCH (10:53)
[2021-02-18] MEDS: HEPARIN NA (PORCINE) 5,000 UNITS/ML 1ML VIAL SQ SCH ×2 (10:53→23:16)
[2021-02-18] MEDS: PRAMIPEXOLE DIHYDROCHLORIDE 0.5 MG TABLET PO SCH ×2 (10:53→23:15)
[2021-02-18 17:07] LABS: GLIADIN ANTIBODY IGA 3 units (0-19); GLIADIN ANTIBODY IGG 2 units (0-19); TRANSGLUTAMINASE IGG < 2 U/mL (0-5)
[2021-02-18] MEDS: LATANOPROST 0.005% OPHTH SOLN 2.5ML BOTTLE OU SCH (23:23)
[2021-02-19] MEDS: CHLORHEXIDINE GLUCONATE 4% CLEANSER FOR DECOLONIZATION TP SCH ×2 (00:50→23:19)
[2021-02-19] MEDS: POLYETHYLENE GLYCOL (HEALTHYLAX) 3350 17 GM PACKET PO SCH ×3 (05:02→23:17)
[2021-02-19] MEDS: GABAPENTIN 400 MG CAPSULE PO SCH ×3 (05:02→23:15)
[2021-02-19] MEDS: BACLOFEN 10 MG TABLET (FP) PO SCH ×3 (05:02→23:17)
[2021-02-19] MEDS: metFORMIN HCL 500 MG TABLET (FP) PO SCH ×2 (06:43→17:44)
[2021-02-19] MEDS: INSULIN SLIDING SCALE (NOVOLOG) 1 VIAL SQ SCH ×5 (06:44→23:22)
[2021-02-19] MEDS ORDERED: INSULIN (NOVOLOG) ASPART 100 UNITS/ML 10ML VIAL ONE (07:19)
[2021-02-19] MEDS ORDERED: INSULIN (NOVOLOG MIX 70/30) 100 UNITS/ML MDV SQ ONE (07:19)
[2021-02-19] MEDS ORDERED: INSULIN (LEVEMIR) 100 UNITS/ML UNITS SQ ONE (07:20)
[2021-02-19] MEDS ORDERED: DEXTROSE 5%-WATER - 50 ML IVPB ONE (11:40)
[2021-02-19] MEDS ORDERED: cefTRIAXone SODIUM 1 GM VIAL ONE (11:40)
[2021-02-19] MEDS: FINASTERIDE 5 MG TABLET (FP) PO SCH (11:57)
[2021-02-19] MEDS: CLOPIDOGREL BISULFATE 75 MG TABLET (FP) PO SCH (11:57)
[2021-02-19] MEDS: PANTOPRAZOLE 40 MG TABLET PO SCH (11:57)
[2021-02-19] MEDS: CEFTRIAXONE 1 GM in DEXTROSE 5%-WATER - 50 ML IVPB SCH (11:57)
[2021-02-19] MEDS: LOSARTAN POTASSIUM 50 MG TABLET PO SCH (11:58)
[2021-02-19] MEDS: AMINO ACIDS/PROTEIN HYDROLYS 30 ML LIQUID.PKT PO SCH ×2 (12:02→17:44)
[2021-02-19] MEDS: HEPARIN NA (PORCINE) 5,000 UNITS/ML 1ML VIAL SQ SCH ×2 (12:03→23:17)
[2021-02-19] MEDS: CARVEDILOL 25 MG TABLET (FP) PO SCH ×2 (12:03→23:17)
[2021-02-19] MEDS: PRAMIPEXOLE DIHYDROCHLORIDE 0.5 MG TABLET PO SCH ×2 (12:04→23:15)
[2021-02-19] MEDS: D5-1/2NS+20 MEQ KCL - 20 MEQ/1,000 ML INFUS.BAG IV SCH (14:59)
[2021-02-19] MEDS: LATANOPROST 0.005% OPHTH SOLN 2.5ML BOTTLE OU SCH (23:38)
[2021-02-20] MEDS: D5-1/2NS+20 MEQ KCL - 20 MEQ/1,000 ML INFUS.BAG IV SCH (03:54)
[2021-02-20] MEDS: GABAPENTIN 400 MG CAPSULE PO SCH ×3 (06:09→21:31)
[2021-02-20] MEDS: POLYETHYLENE GLYCOL (HEALTHYLAX) 3350 17 GM PACKET PO SCH ×3 (06:09→21:31)
[2021-02-20] MEDS: metFORMIN HCL 500 MG TABLET (FP) PO SCH (06:09)
[2021-02-20] MEDS: BACLOFEN 10 MG TABLET (FP) PO SCH ×3 (06:09→21:31)
[2021-02-20] MEDS: INSULIN SLIDING SCALE (NOVOLOG) 1 VIAL SQ SCH ×4 (06:10→21:31)
[2021-02-20] MEDS ORDERED: cefTRIAXone SODIUM 1 GM VIAL ONE (11:55)
[2021-02-20] MEDS ORDERED: DEXTROSE 5%-WATER - 50 ML IVPB ONE (11:55)
[2021-02-20] MEDS: CEFTRIAXONE 1 GM in DEXTROSE 5%-WATER - 50 ML IVPB SCH (12:00)
[2021-02-20] MEDS: CLOPIDOGREL BISULFATE 75 MG TABLET (FP) PO SCH (12:01)
[2021-02-20] MEDS: PRAMIPEXOLE DIHYDROCHLORIDE 0.5 MG TABLET PO SCH ×2 (12:01→21:31)
[2021-02-20] MEDS: CARVEDILOL 25 MG TABLET (FP) PO SCH ×2 (12:01→21:31)
[2021-02-20] MEDS: PANTOPRAZOLE 40 MG TABLET PO SCH (12:02)
[2021-02-20] MEDS: FINASTERIDE 5 MG TABLET (FP) PO SCH (12:02)
[2021-02-20] MEDS: HEPARIN NA (PORCINE) 5,000 UNITS/ML 1ML VIAL SQ SCH ×2 (12:02→21:31)
[2021-02-20] MEDS: LOSARTAN POTASSIUM 50 MG TABLET PO SCH (12:02)
[2021-02-20] MEDS: AMINO ACIDS/PROTEIN HYDROLYS 30 ML LIQUID.PKT PO SCH ×2 (12:03→17:28)
[2021-02-20] MEDS ORDERED: IRON SUCROSE INJECTION 200 MG in SODIUM CHLORIDE 90 ML IVPB ONE (13:51)
[2021-02-20] MEDS: CYANOCOBALAMIN (VITAMIN B-12) 1000 MCG/1 ML VIAL IM SCH (16:19)
[2021-02-20] MEDS: LATANOPROST 0.005% OPHTH SOLN 2.5ML BOTTLE OU SCH (23:03)
[2021-02-20] MEDS: CHLORHEXIDINE GLUCONATE 4% CLEANSER FOR DECOLONIZATION TP SCH (23:03)
[2021-02-21] MEDS: POLYETHYLENE GLYCOL (HEALTHYLAX) 3350 17 GM PACKET PO SCH ×3 (06:50→21:46)
[2021-02-21] MEDS: INSULIN SLIDING SCALE (NOVOLOG) 1 VIAL SQ SCH ×4 (06:50→21:49)
[2021-02-21] MEDS: BACLOFEN 10 MG TABLET (FP) PO SCH ×3 (06:51→21:49)
[2021-02-21] MEDS: GABAPENTIN 400 MG CAPSULE PO SCH ×3 (06:51→21:48)
[2021-02-21] MEDS ORDERED: cefTRIAXone SODIUM 1 GM VIAL ONE (11:11)
[2021-02-21] MEDS ORDERED: DEXTROSE 5%-WATER - 50 ML IVPB ONE (11:12)
[2021-02-21] MEDS: CEFTRIAXONE 1 GM in DEXTROSE 5%-WATER - 50 ML IVPB SCH (11:23)
[2021-02-21] MEDS: AMINO ACIDS/PROTEIN HYDROLYS 30 ML LIQUID.PKT PO SCH ×2 (11:23→18:03)
[2021-02-21] MEDS: CLOPIDOGREL BISULFATE 75 MG TABLET (FP) PO SCH (11:24)
[2021-02-21] MEDS: HEPARIN NA (PORCINE) 5,000 UNITS/ML 1ML VIAL SQ SCH ×2 (11:24→21:46)
[2021-02-21] MEDS: LOSARTAN POTASSIUM 50 MG TABLET PO SCH (11:24)
[2021-02-21] MEDS: FINASTERIDE 5 MG TABLET (FP) PO SCH (11:24)
[2021-02-21] MEDS: PRAMIPEXOLE DIHYDROCHLORIDE 0.5 MG TABLET PO SCH ×2 (11:25→21:48)
[2021-02-21] MEDS: PANTOPRAZOLE 40 MG TABLET PO SCH (11:25)
[2021-02-21] MEDS: CYANOCOBALAMIN (VITAMIN B-12) 1000 MCG/1 ML VIAL IM SCH (11:26)
[2021-02-21] MEDS: CARVEDILOL 25 MG TABLET (FP) PO SCH ×2 (11:29→21:48)
[2021-02-21] MEDS: CHLORHEXIDINE GLUCONATE 4% CLEANSER FOR DECOLONIZATION TP SCH (21:49)
[2021-02-21] MEDS: LATANOPROST 0.005% OPHTH SOLN 2.5ML BOTTLE OU SCH (21:49)
[2021-02-22] MEDS: GABAPENTIN 400 MG CAPSULE PO SCH ×3 (06:09→21:51)
[2021-02-22] MEDS: POLYETHYLENE GLYCOL (HEALTHYLAX) 3350 17 GM PACKET PO SCH ×3 (06:09→21:52)
[2021-02-22] MEDS: BACLOFEN 10 MG TABLET (FP) PO SCH ×3 (06:09→21:52)
[2021-02-22] MEDS: INSULIN SLIDING SCALE (NOVOLOG) 1 VIAL SQ SCH ×4 (06:10→21:56)
[2021-02-22] MEDS ORDERED: cefTRIAXone SODIUM 1 GM VIAL ONE (10:29)
[2021-02-22] MEDS ORDERED: DEXTROSE 5%-WATER - 50 ML IVPB ONE (10:30)
[2021-02-22] MEDS: FINASTERIDE 5 MG TABLET (FP) PO SCH (10:40)
[2021-02-22] MEDS: CARVEDILOL 25 MG TABLET (FP) PO SCH ×2 (10:40→21:51)
[2021-02-22] MEDS: PANTOPRAZOLE 40 MG TABLET PO SCH (10:40)
[2021-02-22] MEDS: LOSARTAN POTASSIUM 50 MG TABLET PO SCH (10:40)
[2021-02-22] MEDS: AMINO ACIDS/PROTEIN HYDROLYS 30 ML LIQUID.PKT PO SCH ×2 (10:40→17:49)
[2021-02-22] MEDS: amLODIPine BESYLATE 5 MG TABLET (FP) PO SCH (10:40)
[2021-02-22] MEDS: CLOPIDOGREL BISULFATE 75 MG TABLET (FP) PO SCH (10:40)
[2021-02-22] MEDS: CYANOCOBALAMIN (VITAMIN B-12) 1000 MCG/1 ML VIAL IM SCH (10:40)
[2021-02-22] MEDS: PRAMIPEXOLE DIHYDROCHLORIDE 0.5 MG TABLET PO SCH ×2 (10:40→21:51)
[2021-02-22] MEDS: HEPARIN NA (PORCINE) 5,000 UNITS/ML 1ML VIAL SQ SCH (10:41)
[2021-02-22] MEDS: CEFTRIAXONE 1 GM in DEXTROSE 5%-WATER - 50 ML IVPB SCH (10:41)
[2021-02-22] MEDS: LATANOPROST 0.005% OPHTH SOLN 2.5ML BOTTLE OU SCH (21:57)
[2021-02-23] MEDS: POLYETHYLENE GLYCOL (HEALTHYLAX) 3350 17 GM PACKET PO SCH ×3 (06:31→21:52)
[2021-02-23] MEDS: GABAPENTIN 400 MG CAPSULE PO SCH ×3 (06:31→21:52)
[2021-02-23] MEDS: BACLOFEN 10 MG TABLET (FP) PO SCH ×3 (06:31→21:52)
[2021-02-23] MEDS: INSULIN SLIDING SCALE (NOVOLOG) 1 VIAL SQ SCH ×4 (06:32→21:52)
[2021-02-23] MEDS ORDERED: cefTRIAXone SODIUM 1 GM VIAL ONE (10:39)
[2021-02-23] MEDS ORDERED: DEXTROSE 5%-WATER - 50 ML IVPB ONE (10:39)
[2021-02-23] MEDS: AMINO ACIDS/PROTEIN HYDROLYS 30 ML LIQUID.PKT PO SCH ×2 (10:54→18:00)
[2021-02-23] MEDS: CLOPIDOGREL BISULFATE 75 MG TABLET (FP) PO SCH (10:55)
[2021-02-23] MEDS: CYANOCOBALAMIN (VITAMIN B-12) 1000 MCG/1 ML VIAL IM SCH (10:55)
[2021-02-23] MEDS: PRAMIPEXOLE DIHYDROCHLORIDE 0.5 MG TABLET PO SCH ×2 (10:55→21:52)
[2021-02-23] MEDS: amLODIPine BESYLATE 5 MG TABLET (FP) PO SCH (10:55)
[2021-02-23] MEDS: CARVEDILOL 25 MG TABLET (FP) PO SCH ×2 (10:55→21:52)
[2021-02-23] MEDS: PANTOPRAZOLE 40 MG TABLET PO SCH (10:55)
[2021-02-23] MEDS: CEFTRIAXONE 1 GM in DEXTROSE 5%-WATER - 50 ML IVPB SCH (10:55)
[2021-02-23] MEDS: FINASTERIDE 5 MG TABLET (FP) PO SCH (10:55)
[2021-02-23] MEDS: LOSARTAN POTASSIUM 50 MG TABLET PO SCH (10:58)
[2021-02-23] MEDS: ACETAMINOPHEN 325 MG TABLET (FP) PO PRN (20:12)
[2021-02-23] MEDS: CHLORHEXIDINE GLUCONATE 4% CLEANSER FOR DECOLONIZATION TP SCH ×2 (21:52)
[2021-02-23] MEDS: LATANOPROST 0.005% OPHTH SOLN 2.5ML BOTTLE OU SCH (21:55)
[2021-02-24] MEDS: POLYETHYLENE GLYCOL (HEALTHYLAX) 3350 17 GM PACKET PO SCH ×3 (05:46→13:31)
[2021-02-24] MEDS: INSULIN SLIDING SCALE (NOVOLOG) 1 VIAL SQ SCH ×3 (06:10→19:56)
[2021-02-24] MEDS: GABAPENTIN 400 MG CAPSULE PO SCH ×2 (06:55→13:27)
[2021-02-24] MEDS: BACLOFEN 10 MG TABLET (FP) PO SCH ×2 (06:55→13:27)
[2021-02-24] MEDS: CLOPIDOGREL BISULFATE 75 MG TABLET (FP) PO SCH (09:13)
[2021-02-24] MEDS: PANTOPRAZOLE 40 MG TABLET PO SCH (09:13)
[2021-02-24] MEDS: LOSARTAN POTASSIUM 50 MG TABLET PO SCH (09:13)
[2021-02-24] MEDS: PRAMIPEXOLE DIHYDROCHLORIDE 0.5 MG TABLET PO SCH (09:13)
[2021-02-24] MEDS: AMINO ACIDS/PROTEIN HYDROLYS 30 ML LIQUID.PKT PO SCH (09:13)
[2021-02-24] MEDS: amLODIPine BESYLATE 5 MG TABLET (FP) PO SCH (09:13)
[2021-02-24] MEDS: CARVEDILOL 25 MG TABLET (FP) PO SCH (09:14)
[2021-02-24] MEDS: CYANOCOBALAMIN (VITAMIN B-12) 1000 MCG/1 ML VIAL IM SCH (09:14)
[2021-02-24] MEDS: FINASTERIDE 5 MG TABLET (FP) PO SCH (09:15)
[2021-02-24] MEDS: ACETAMINOPHEN 325 MG TABLET (FP) PO PRN (14:07)
[2021-02-24 14:13] VITALS: BP 144/95; PULSE 91; TEMP 98.4
== END 2021-02-24 16:50 | DRG 690 ==
LOC: JER 09:57 → JERBED 10:34 → J7W 19:27
PROVIDERS: ADMIT Family Medicine; ATTEND Family Medicine
DX: N39.0 Urinary tract infection, site not specified (principal); E11.52 Type 2 diabetes mellitus with diabetic peripheral angiopathy with gangrene; L97.808 Non-pressure chronic ulcer of other part of unspecified lower leg with other specified severity; A52.17 General paresis; M50.00 Cervical disc disorder with myelopathy, unspecified cervical region; I10 Essential (primary) hypertension; N40.0 Benign prostatic hyperplasia without lower urinary tract symptoms; E78.5 Hyperlipidemia, unspecified; D64.9 Anemia, unspecified; R53.1 Weakness; G56.01 Carpal tunnel syndrome, right upper limb; K56.41 Fecal impaction; G56.03 Carpal tunnel syndrome, bilateral upper limbs; R74.8 Abnormal levels of other serum enzymes; E11.51 Type 2 diabetes mellitus with diabetic peripheral angiopathy without gangrene; E11.43 Type 2 diabetes mellitus with diabetic autonomic (poly)neuropathy; E86.0 Dehydration; E11.622 Type 2 diabetes mellitus with other skin ulcer; G25.81 Restless legs syndrome; K57.90 Diverticulosis of intestine, part unspecified, without perforation or abscess without bleeding; D17.5 Benign lipomatous neoplasm of intra-abdominal organs; R50.9 Fever, unspecified; N31.9 Neuromuscular dysfunction of bladder, unspecified; M16.11 Unilateral primary osteoarthritis, right hip; G43.909 Migraine, unspecified, not intractable, without status migrainosus; B96.89 Other specified bacterial agents as the cause of diseases classified elsewhere; Z86.718 Personal history of other venous thrombosis and embolism
CPT/HCPCS: 36415; 70450-TC; 71045-TC-FY; 72125-TC; 72170-TC-FY; 80048; 80053; 80061; 80307; 81003; 82550; 82553; 82607; 82728; 82746; 82784; 82962; 83036; 83516; 83540; 83550; 83605; 83735; 83883; 84155; 84165; 84443; 84484; 85025; 85027; 85045; 85610; 85730; 87040; 87086; 87186; 87899; 93005; 93010; 97116-GP; 97162-GP; 99285-25; C9803; J0475; J1644; J1756; U0003; U0005

== ENCOUNTER 2021-02-25 22:50 | Inpatient (IN) | payer OTHER ==
[2021-02-25] MEDS ORDERED: morphine SULFATE 4 MG/ML VIAL IVPUSH ONE (23:36)
[2021-02-25] MEDS ORDERED: morphine SULFATE 4 MG/ML VIAL ONE (23:59)
[2021-02-26 00:15] LABS: BASO % 0.8 % (0-2.0); EOS % 0.2 % (0-4.5); HEMOGLOBIN 10.6 GM/dL (11.7-16.9); LYMPH % 19.8 % (8-40); MCH 28.7 pg (25.7-33.7); MCHC 34.1 g/dl (32.0-35.9); MEAN CELL VOLUME 83.9 fl (80-96); MEAN PLT VOLUME 8.8 fl (7.5-11.1); NEUT % 73.2 % (42.8-82.8); PLATELET COUNT 296 10^3/uL (134-434); RBC 3.69 M/mm3 (4.00-5.60); RDW 17.2 % (11.9-15.9); WHITE BLOOD COUNT 8.4 K/mm3 (4.0-10.0)
[2021-02-26 00:23] LABS: INR 1.22 (0.83-1.09); PROTHROMBIN TIME (PATIENT) 13.7 SEC (9.7-13.0)
[2021-02-26 00:26] LABS: ACTIVATED PTT 32.7 SECONDS (25.2-36.5)
[2021-02-26 00:36] LABS: BLOOD UREA NITROGEN 22.7 mg/dL (7-18); CALCIUM 8.6 mg/dL (8.5-10.1)
[2021-02-26 00:40] LABS: CREATININE 1.2 mg/dL (0.55-1.3)
[2021-02-26 00:41] LABS: BILIRUBIN,TOTAL 0.2 mg/dL (0.2-1); TOT PROT 8.5 g/dl (6.4-8.2)
[2021-02-26 00:47] LABS: ALBUMIN 2.9 g/dl (3.4-5.0)
[2021-02-26] MEDS ORDERED: morphine SULFATE 4 MG/ML VIAL IVPUSH PRN ×2 (04:47→16:00)
[2021-02-26] MEDS ORDERED: ACETAMINOPHEN 1000 MG/100 ML VIAL IVPB PRN ×2 (04:48→16:00)
[2021-02-26 06:34] LABS: HEMATOCRIT 30.7 % (35.4-49); HEMOGLOBIN 10.4 GM/dL (11.7-16.9); MCH 28.9 pg (25.7-33.7); MCHC 33.9 g/dl (32.0-35.9); MEAN CELL VOLUME 85.4 fl (80-96); MEAN PLT VOLUME 9.1 fl (7.5-11.1); PLATELET COUNT 284 10^3/uL (134-434); RDW 17.3 % (11.9-15.9); WHITE BLOOD COUNT 7.2 K/mm3 (4.0-10.0)
[2021-02-26 07:00] LABS: ALBUMIN 2.8 g/dl (3.4-5.0); BLOOD UREA NITROGEN 21.8 mg/dL (7-18); CALCIUM 8.5 mg/dL (8.5-10.1); MAGNESIUM 2.3 mg/dL (1.8-2.4)
[2021-02-26 07:02] LABS: CREATININE 1.1 mg/dL (0.55-1.3)
[2021-02-26 07:04] LABS: BILIRUBIN,TOTAL 0.3 mg/dL (0.2-1); PHOSPHOROUS 3.2 mg/dL (2.5-4.9); TOT PROT 8.1 g/dl (6.4-8.2)
[2021-02-26] MEDS: INSULIN SLIDING SCALE (NOVOLOG) 1 VIAL SQ SCH ×4 (07:15→21:57)
[2021-02-26] MEDS ORDERED: DOCUSATE SODIUM 100 MG CAPSULE (FP) PO SCH (08:00)
[2021-02-26 08:17] LABS: URINE APPEARANCE CLEAR; URINE BILIRUBIN NEGATIVE (NEGATIVE); URINE COLOR YELLOW; URINE GLUCOSE (UA) NEGATIVE (NEGATIVE); URINE KETONE NEGATIVE (NEGATIVE); URINE LEUK ESTERASE NEGATIVE (NEGATIVE); URINE NITRITE NEGATIVE (NEGATIVE); URINE PROTEIN NEGATIVE (NEGATIVE); URINE UROBILINOGEN 0.2 mg/dL (0.2-1.0)
[2021-02-26] MEDS ORDERED: ZINC SULFATE 220 MG CAPSULE (FP) PO SCH (10:00)
[2021-02-26] MEDS ORDERED: FINASTERIDE 5 MG TABLET (FP) PO SCH (10:00)
[2021-02-26] MEDS ORDERED: ENOXAPARIN NA (PORCINE) 40 MG/0.4 ML DISP.SYRIN SQ SCH (10:00)
[2021-02-26] MEDS ORDERED: LOSARTAN POTASSIUM 50 MG TABLET PO SCH (10:00)
[2021-02-26] MEDS ORDERED: CARVEDILOL 25 MG TABLET (FP) PO SCH (10:00)
[2021-02-26] MEDS ORDERED: ASCORBIC ACID 500 MG TABLET (FP) PO SCH (10:00)
[2021-02-26] MEDS ORDERED: MULTIVITAMINS (DAILY MVI) TABLET (FP) PO SCH (10:00)
[2021-02-26] MEDS ORDERED: POLYETHYLENE GLYCOL 3350 119 GM BTL PO SCH (10:00)
[2021-02-26] MEDS ORDERED: PANTOPRAZOLE 40 MG TABLET PO SCH (10:00)
[2021-02-26] MEDS ORDERED: morphine SULFATE 4 MG/ML VIAL ONE (10:18)
[2021-02-26] MEDS ORDERED: CARVEDILOL 12.5 MG TABLET (FP) ONE (11:00)
[2021-02-26] MEDS ORDERED: LOSARTAN POTASSIUM 50 MG TABLET ONE (11:01)
[2021-02-26] MEDS ORDERED: VANCOMYCIN 1,000 MG VIAL (RESTRICTED TO ID ONLY) ONE (12:40)
[2021-02-26] MEDS ORDERED: ceFAZolin SODIUM 1 GM VIAL ONE (12:40)
[2021-02-26] MEDS ORDERED: SUCCINYLCHOLINE CHLORIDE 200 MG/10 ML SYRINGE ONE (13:09)
[2021-02-26] MEDS ORDERED: ROCURONIUM BROMIDE 100 MG/10 ML VIAL ONE (13:09)
[2021-02-26] MEDS ORDERED: ACETAMINOPHEN INJECTION 100 ML IVPB ONE (13:48)
[2021-02-26] MEDS ORDERED: DEXMEDETOMIDINE HCL 200 MCG/2 ML IVPB ONE (13:48)
[2021-02-26] MEDS ORDERED: GABAPENTIN 400 MG CAPSULE PO SCH (14:00)
[2021-02-26] MEDS ORDERED: ceFAZolin SODIUM 1 GM VIAL IVPB ONE ×2 (14:21→14:42)
[2021-02-26] MEDS ORDERED: VANCOMYCIN 1 GM in D5W (PRE-DOCKED) 1,000 MG/250 ML IVPB ONE ×2 (14:21→14:48)
[2021-02-26] MEDS ORDERED: ceFAZolin 2 GRAM PREMIX BAG IVPB ONE (14:30)
[2021-02-26] MEDS ORDERED: PROPOFOL 20 ML ONE (14:39)
[2021-02-26] MEDS ORDERED: TRANEXAMIC ACID 1000 MG/10 ML VIAL ONE (14:43)
[2021-02-26] MEDS ORDERED: NEOSTIGMINE METHYLSULFATE 0.5 MG/ML - 10 ML MDV ONE (15:13)
[2021-02-26] MEDS ORDERED: CEFAZOLIN 2 GM in DEXTROSE 5%-WATER 100 ML IVPB SCH (20:00)
[2021-02-26] MEDS: LACTATED RINGERS SOLUTION 1,000 ML IV SCH ×2 (21:52→21:57)
[2021-02-26] MEDS: DOCUSATE SODIUM 100 MG CAPSULE (FP) PO SCH (21:53)
[2021-02-26] MEDS: ASCORBIC ACID 500 MG TABLET (FP) PO SCH (21:53)
[2021-02-26] MEDS: GABAPENTIN 400 MG CAPSULE PO SCH (21:53)
[2021-02-26] MEDS: CEFAZOLIN 2 GM in DEXTROSE 5%-WATER - 100 ML IVPB SCH (21:55)
[2021-02-26] MEDS: CARVEDILOL 25 MG TABLET (FP) PO SCH (21:57)
[2021-02-27] MEDS: INSULIN SLIDING SCALE (NOVOLOG) 1 VIAL SQ SCH ×4 (06:03→21:50)
[2021-02-27] MEDS: GABAPENTIN 400 MG CAPSULE PO SCH ×3 (06:03→21:49)
[2021-02-27] MEDS: CEFAZOLIN 2 GM in DEXTROSE 5%-WATER - 100 ML IVPB SCH (06:03)
[2021-02-27] MEDS: DOCUSATE SODIUM 100 MG CAPSULE (FP) PO SCH ×2 (08:58→21:49)
[2021-02-27] MEDS ORDERED: ASPIRIN 325 MG TABLET PO SCH (10:00)
[2021-02-27 10:02] LABS: BASO % 0.8 % (0-2.0); EOS % 0.1 % (0-4.5); HEMATOCRIT 26.1 % (35.4-49); HEMOGLOBIN 8.8 GM/dL (11.7-16.9); LYMPH % 8.7 % (8-40); MCH 28.9 pg (25.7-33.7); MCHC 33.6 g/dl (32.0-35.9); MEAN CELL VOLUME 86.1 fl (80-96); MEAN PLT VOLUME 9.2 fl (7.5-11.1); MONO % 4.8 % (3.8-10.2); NEUT % 85.6 % (42.8-82.8); PLATELET COUNT 244 10^3/uL (134-434); RBC 3.03 M/mm3 (4.00-5.60); RDW 16.9 % (11.9-15.9)
[2021-02-27 10:27] LABS: ALBUMIN 2.4 g/dl (3.4-5.0); BLOOD UREA NITROGEN 22.8 mg/dL (7-18)
[2021-02-27 10:28] LABS: MAGNESIUM 1.9 mg/dL (1.8-2.4)
[2021-02-27 10:30] LABS: CREATININE 1.2 mg/dL (0.55-1.3)
[2021-02-27 10:32] LABS: BILIRUBIN,TOTAL 0.3 mg/dL (0.2-1)
[2021-02-27] MEDS: CARVEDILOL 25 MG TABLET (FP) PO SCH ×2 (10:56→21:50)
[2021-02-27] MEDS: PANTOPRAZOLE 40 MG TABLET PO SCH (10:56)
[2021-02-27] MEDS: ZINC SULFATE 220 MG CAPSULE (FP) PO SCH (10:57)
[2021-02-27] MEDS: FINASTERIDE 5 MG TABLET (FP) PO SCH (10:57)
[2021-02-27] MEDS: ASCORBIC ACID 500 MG TABLET (FP) PO SCH ×2 (10:57→21:50)
[2021-02-27] MEDS: LOSARTAN POTASSIUM 50 MG TABLET PO SCH (10:57)
[2021-02-27] MEDS: MULTIVITAMINS (DAILY MVI) TABLET (FP) PO SCH (10:57)
[2021-02-27] MEDS: POLYETHYLENE GLYCOL (HEALTHYLAX) 3350 17 GM PACKET PO SCH (11:00)
[2021-02-28] MEDS: GABAPENTIN 400 MG CAPSULE PO SCH ×3 (05:30→21:43)
[2021-02-28] MEDS: INSULIN SLIDING SCALE (NOVOLOG) 1 VIAL SQ SCH ×4 (06:03→21:47)
[2021-02-28 08:55] LABS: BASO % 0.5 % (0-2.0); EOS % 0.2 % (0-4.5); HEMATOCRIT 24.8 % (35.4-49); HEMOGLOBIN 8.3 GM/dL (11.7-16.9); LYMPH % 12.6 % (8-40); MCH 29.2 pg (25.7-33.7); MCHC 33.6 g/dl (32.0-35.9); MEAN CELL VOLUME 86.9 fl (80-96); MEAN PLT VOLUME 9.5 fl (7.5-11.1); MONO % 5.7 % (3.8-10.2); PLATELET COUNT 221 10^3/uL (134-434); RBC 2.85 M/mm3 (4.00-5.60); WHITE BLOOD COUNT 9.2 K/mm3 (4.0-10.0)
[2021-02-28 09:04] LABS: INR 1.24 (0.83-1.09); PROTHROMBIN TIME (PATIENT) 14.5 SEC (9.7-13.0)
[2021-02-28 09:07] LABS: ACTIVATED PTT 28.9 SECONDS (25.2-36.5)
[2021-02-28 09:12] LABS: CHLORIDE 107 mmol/L (98-107); SODIUM 137 mmol/L (136-145)
[2021-02-28 09:15] LABS: ANION GAP 6 MMOL/L (8-16); BLOOD UREA NITROGEN 25.6 mg/dL (7-18); CO2 25 mmol/L (21-32); GLUCOSE,RANDOM 104 mg/dL (74-106)
[2021-02-28 09:16] LABS: ALBUMIN 2.3 g/dl (3.4-5.0)
[2021-02-28 09:18] LABS: CHOLESTEROL 76 mg/dL (50-200); CREATININE 1.3 mg/dL (0.55-1.3); SGPT/ALT 10 U/L (13-61)
[2021-02-28 09:20] LABS: BILIRUBIN,TOTAL 0.3 mg/dL (0.2-1); LDL CHOLESTEROL (ONLY SJRH) 37 mg/dL (5-100); SGOT/AST 15 U/L (15-37); TRIGLYCERIDES 68 mg/dL (0-150)
[2021-02-28 09:21] LABS: ALK PHOS 55 U/L (45-117); HDL CHOLESTEROL 29 mg/dL (40-60)
[2021-02-28] MEDS: DOCUSATE SODIUM 100 MG CAPSULE (FP) PO SCH ×2 (09:38→21:00)
[2021-02-28] MEDS: ENOXAPARIN NA (PORCINE) 40 MG/0.4 ML DISP.SYRIN SQ SCH (09:40)
[2021-02-28] MEDS: ZINC SULFATE 220 MG CAPSULE (FP) PO SCH (09:40)
[2021-02-28] MEDS: ASCORBIC ACID 500 MG TABLET (FP) PO SCH ×2 (09:40→21:43)
[2021-02-28] MEDS: CARVEDILOL 25 MG TABLET (FP) PO SCH ×2 (09:40→21:43)
[2021-02-28] MEDS: MULTIVITAMINS (DAILY MVI) TABLET (FP) PO SCH (09:40)
[2021-02-28] MEDS: POLYETHYLENE GLYCOL (HEALTHYLAX) 3350 17 GM PACKET PO SCH (09:40)
[2021-02-28] MEDS: CLOPIDOGREL BISULFATE 75 MG TABLET (FP) PO SCH (09:40)
[2021-02-28] MEDS: PANTOPRAZOLE 40 MG TABLET PO SCH (09:40)
[2021-02-28] MEDS: FINASTERIDE 5 MG TABLET (FP) PO SCH (09:40)
[2021-02-28] MEDS: LOSARTAN POTASSIUM 50 MG TABLET PO SCH (09:41)
[2021-02-28 14:26] LABS: EPI CELLS 10 /uL (0-25.1); HYALINE CASTS 4 /uL (0-3.1); URINE APPEARANCE CLOUDY; URINE BACTERIA 2 /uL (0-1359); URINE BILIRUBIN NEGATIVE (NEGATIVE); URINE COLOR YELLOW; URINE GLUCOSE (UA) NEGATIVE (NEGATIVE); URINE KETONE NEGATIVE (NEGATIVE); URINE LEUK ESTERASE NEGATIVE (NEGATIVE); URINE NITRITE NEGATIVE (NEGATIVE); URINE PROTEIN 1+ (NEGATIVE); URINE RBC 4 /uL (0-23.9); URINE UROBILINOGEN 0.2 mg/dL (0.2-1.0); URINE WBC 17 /uL (0-25.8)
[2021-03-01] MEDS: GABAPENTIN 400 MG CAPSULE PO SCH ×3 (06:26→21:18)
[2021-03-01 07:17] LABS: BASO % 0.3 % (0-2.0); EOS % 0.8 % (0-4.5); HEMATOCRIT 24.2 % (35.4-49); HEMOGLOBIN 8.2 GM/dL (11.7-16.9); LYMPH % 11.2 % (8-40); MCH 29.1 pg (25.7-33.7); MCHC 33.8 g/dl (32.0-35.9); MEAN CELL VOLUME 86.1 fl (80-96); MEAN PLT VOLUME 9.7 fl (7.5-11.1); MONO % 6.4 % (3.8-10.2); NEUT % 81.3 % (42.8-82.8); PLATELET COUNT 212 10^3/uL (134-434); RBC 2.81 M/mm3 (4.00-5.60); RDW 16.5 % (11.9-15.9)
[2021-03-01 07:48] LABS: CALCIUM 8.2 mg/dL (8.5-10.1)
[2021-03-01 07:49] LABS: ALBUMIN 2.2 g/dl (3.4-5.0); BLOOD UREA NITROGEN 23.8 mg/dL (7-18); MAGNESIUM 2.2 mg/dL (1.8-2.4)
[2021-03-01 07:54] LABS: BILIRUBIN,TOTAL 0.3 mg/dL (0.2-1)
[2021-03-01] MEDS: INSULIN SLIDING SCALE (NOVOLOG) 1 VIAL SQ SCH ×4 (07:55→21:31)
[2021-03-01] MEDS: DOCUSATE SODIUM 100 MG CAPSULE (FP) PO SCH ×2 (08:55→21:19)
[2021-03-01] MEDS: FINASTERIDE 5 MG TABLET (FP) PO SCH (10:17)
[2021-03-01] MEDS: LOSARTAN POTASSIUM 50 MG TABLET PO SCH (10:17)
[2021-03-01] MEDS: ASCORBIC ACID 500 MG TABLET (FP) PO SCH ×2 (10:17→21:19)
[2021-03-01] MEDS: CARVEDILOL 25 MG TABLET (FP) PO SCH ×2 (10:17→21:19)
[2021-03-01] MEDS: PANTOPRAZOLE 40 MG TABLET PO SCH (10:17)
[2021-03-01] MEDS: ENOXAPARIN NA (PORCINE) 40 MG/0.4 ML DISP.SYRIN SQ SCH (10:17)
[2021-03-01] MEDS: MULTIVITAMINS (DAILY MVI) TABLET (FP) PO SCH (10:17)
[2021-03-01] MEDS: POLYETHYLENE GLYCOL (HEALTHYLAX) 3350 17 GM PACKET PO SCH (10:17)
[2021-03-01] MEDS: CLOPIDOGREL BISULFATE 75 MG TABLET (FP) PO SCH (10:17)
[2021-03-01] MEDS: ZINC SULFATE 220 MG CAPSULE (FP) PO SCH (10:17)
[2021-03-01 14:18] VITALS: BMI 27.8
[2021-03-02] MEDS: GABAPENTIN 400 MG CAPSULE PO SCH ×3 (05:06→21:10)
[2021-03-02] MEDS: INSULIN SLIDING SCALE (NOVOLOG) 1 VIAL SQ SCH ×4 (07:18→21:15)
[2021-03-02] MEDS: ENOXAPARIN NA (PORCINE) 40 MG/0.4 ML DISP.SYRIN SQ SCH (09:26)
[2021-03-02] MEDS: CARVEDILOL 25 MG TABLET (FP) PO SCH ×2 (09:26→21:10)
[2021-03-02] MEDS: LOSARTAN POTASSIUM 50 MG TABLET PO SCH (09:26)
[2021-03-02] MEDS: POLYETHYLENE GLYCOL (HEALTHYLAX) 3350 17 GM PACKET PO SCH (09:26)
[2021-03-02] MEDS: DOCUSATE SODIUM 100 MG CAPSULE (FP) PO SCH ×2 (09:26→20:10)
[2021-03-02] MEDS: ASCORBIC ACID 500 MG TABLET (FP) PO SCH ×2 (09:27→21:10)
[2021-03-02] MEDS: ZINC SULFATE 220 MG CAPSULE (FP) PO SCH (09:27)
[2021-03-02] MEDS: FINASTERIDE 5 MG TABLET (FP) PO SCH (09:27)
[2021-03-02] MEDS: CLOPIDOGREL BISULFATE 75 MG TABLET (FP) PO SCH (09:27)
[2021-03-02] MEDS: PANTOPRAZOLE 40 MG TABLET PO SCH (09:27)
[2021-03-02] MEDS: MULTIVITAMINS (DAILY MVI) TABLET (FP) PO SCH (09:27)
[2021-03-02] MEDS ORDERED: oxyCODONE HCL 5 MG TABLET PO ONE (12:00)
[2021-03-02] MEDS ORDERED: ACETAMINOPHEN 500 MG TABLET (FP) PO ONE (12:00)
[2021-03-02] MEDS ORDERED: oxyCODONE HCL 5 MG TABLET PO PRN (17:28)
[2021-03-02] MEDS ORDERED: ACETAMINOPHEN 325 MG TABLET (FP) PO PRN (17:29)
[2021-03-02 18:08] LABS: TOTAL PROTEIN, URINE 8.1 mg/dL (Not Estab.)
[2021-03-02] MEDS: PRAMIPEXOLE DIHYDROCHLORIDE 0.5 MG TABLET PO SCH (22:50)
[2021-03-02] MEDS: BACLOFEN 10 MG TABLET (FP) PO SCH (22:50)
[2021-03-03] MEDS ORDERED: PT OWN MED DRAWER 7, Y5N ONE ×2 (06:30→16:40)
[2021-03-03] MEDS: BACLOFEN 10 MG TABLET (FP) PO SCH ×3 (06:37→21:15)
[2021-03-03] MEDS: PRAMIPEXOLE DIHYDROCHLORIDE 0.5 MG TABLET PO SCH ×3 (06:37→21:15)
[2021-03-03] MEDS: GABAPENTIN 400 MG CAPSULE PO SCH ×3 (06:37→21:15)
[2021-03-03] MEDS: INSULIN SLIDING SCALE (NOVOLOG) 1 VIAL SQ SCH ×4 (06:39→21:22)
[2021-03-03] MEDS: DOCUSATE SODIUM 100 MG CAPSULE (FP) PO SCH ×2 (10:32→19:50)
[2021-03-03] MEDS: CARVEDILOL 25 MG TABLET (FP) PO SCH ×2 (10:32→21:15)
[2021-03-03] MEDS: LOSARTAN POTASSIUM 50 MG TABLET PO SCH (10:32)
[2021-03-03] MEDS: POLYETHYLENE GLYCOL (HEALTHYLAX) 3350 17 GM PACKET PO SCH (10:33)
[2021-03-03] MEDS: ZINC SULFATE 220 MG CAPSULE (FP) PO SCH (10:33)
[2021-03-03] MEDS: FINASTERIDE 5 MG TABLET (FP) PO SCH (10:34)
[2021-03-03] MEDS: MULTIVITAMINS (DAILY MVI) TABLET (FP) PO SCH (10:34)
[2021-03-03] MEDS: CLOPIDOGREL BISULFATE 75 MG TABLET (FP) PO SCH (10:34)
[2021-03-03] MEDS: PANTOPRAZOLE 40 MG TABLET PO SCH (10:34)
[2021-03-03] MEDS: ASCORBIC ACID 500 MG TABLET (FP) PO SCH ×2 (10:34→21:15)
[2021-03-03] MEDS: ENOXAPARIN NA (PORCINE) 40 MG/0.4 ML DISP.SYRIN SQ SCH (10:35)
[2021-03-04] MEDS: GABAPENTIN 400 MG CAPSULE PO SCH ×3 (05:34→21:29)
[2021-03-04] MEDS: PRAMIPEXOLE DIHYDROCHLORIDE 0.5 MG TABLET PO SCH ×3 (05:34→21:30)
[2021-03-04] MEDS: BACLOFEN 10 MG TABLET (FP) PO SCH ×3 (05:34→21:31)
[2021-03-04] MEDS: INSULIN SLIDING SCALE (NOVOLOG) 1 VIAL SQ SCH ×4 (07:07→22:55)
[2021-03-04 07:26] LABS: CALCIUM 7.8 mg/dL (8.5-10.1)
[2021-03-04 07:27] LABS: BLOOD UREA NITROGEN 15.2 mg/dL (7-18)
[2021-03-04 07:30] LABS: CREATININE 0.9 mg/dL (0.55-1.3)
[2021-03-04 07:31] LABS: BILIRUBIN,TOTAL 0.4 mg/dL (0.2-1)
[2021-03-04 07:32] LABS: TOT PROT 6.8 g/dl (6.4-8.2)
[2021-03-04] MEDS: DOCUSATE SODIUM 100 MG CAPSULE (FP) PO SCH ×2 (08:34→20:55)
[2021-03-04] MEDS: PANTOPRAZOLE 40 MG TABLET PO SCH (09:00)
[2021-03-04] MEDS: MULTIVITAMINS (DAILY MVI) TABLET (FP) PO SCH (09:00)
[2021-03-04] MEDS: CLOPIDOGREL BISULFATE 75 MG TABLET (FP) PO SCH (09:00)
[2021-03-04] MEDS: POLYETHYLENE GLYCOL (HEALTHYLAX) 3350 17 GM PACKET PO SCH (09:00)
[2021-03-04] MEDS: ASCORBIC ACID 500 MG TABLET (FP) PO SCH ×2 (09:00→21:30)
[2021-03-04] MEDS: ZINC SULFATE 220 MG CAPSULE (FP) PO SCH (09:00)
[2021-03-04] MEDS: CARVEDILOL 25 MG TABLET (FP) PO SCH ×2 (09:00→21:30)
[2021-03-04] MEDS: LOSARTAN POTASSIUM 50 MG TABLET PO SCH (09:00)
[2021-03-04] MEDS: FINASTERIDE 5 MG TABLET (FP) PO SCH (09:00)
[2021-03-04] MEDS: ENOXAPARIN NA (PORCINE) 40 MG/0.4 ML DISP.SYRIN SQ SCH (09:06)
[2021-03-04 09:17] LABS: BASO % 0.6 % (0-2.0); EOS % 1.4 % (0-4.5); HEMATOCRIT 23.2 % (35.4-49); HEMOGLOBIN 7.8 GM/dL (11.7-16.9); LYMPH % 19.2 % (8-40); MCH 29.4 pg (25.7-33.7); MCHC 33.6 g/dl (32.0-35.9); MEAN CELL VOLUME 87.6 fl (80-96); NEUT % 69.8 % (42.8-82.8); PLATELET COUNT 253 10^3/uL (134-434); RBC 2.65 M/mm3 (4.00-5.60); RDW 16.2 % (11.9-15.9); WHITE BLOOD COUNT 4.8 K/mm3 (4.0-10.0)
[2021-03-04] MEDS ORDERED: PT OWN MED DRAWER 7, Y5N ONE ×2 (14:31→20:36)
[2021-03-05] MEDS ORDERED: ACETAMINOPHEN 325 MG TABLET (FP) PO PRN (01:34)
[2021-03-05] MEDS ORDERED: PT OWN MED DRAWER 7, Y5N ONE ×4 (02:28→14:22)
[2021-03-05] MEDS: oxyCODONE HCL 5 MG TABLET PO PRN ×2 (05:04→12:02)
[2021-03-05] MEDS: BACLOFEN 10 MG TABLET (FP) PO SCH ×2 (05:06→14:16)
[2021-03-05] MEDS: PRAMIPEXOLE DIHYDROCHLORIDE 0.5 MG TABLET PO SCH ×2 (05:06→14:15)
[2021-03-05] MEDS: GABAPENTIN 400 MG CAPSULE PO SCH ×2 (05:06→14:15)
[2021-03-05 06:51] LABS: EOS % 1.8 % (0-4.5); HEMATOCRIT 24.1 % (35.4-49); HEMOGLOBIN 8.3 GM/dL (11.7-16.9); LYMPH % 18.9 % (8-40); MCH 29.3 pg (25.7-33.7); MCHC 34.3 g/dl (32.0-35.9); MEAN CELL VOLUME 85.3 fl (80-96); MEAN PLT VOLUME 9.1 fl (7.5-11.1); MONO % 9.1 % (3.8-10.2); NEUT % 69.2 % (42.8-82.8); PLATELET COUNT 272 10^3/uL (134-434); RBC 2.83 M/mm3 (4.00-5.60); RDW 15.6 % (11.9-15.9)
[2021-03-05] MEDS ORDERED: DOCUSATE SODIUM 100 MG CAPSULE (FP) PO SCH (07:00)
[2021-03-05 07:15] LABS: CALCIUM 8.2 mg/dL (8.5-10.1)
[2021-03-05 07:16] LABS: BLOOD UREA NITROGEN 13.2 mg/dL (7-18)
[2021-03-05 07:19] LABS: CREATININE 0.9 mg/dL (0.55-1.3)
[2021-03-05 07:21] LABS: BILIRUBIN,TOTAL 0.8 mg/dL (0.2-1); TOT PROT 6.8 g/dl (6.4-8.2)
[2021-03-05] MEDS: INSULIN SLIDING SCALE (NOVOLOG) 1 VIAL SQ SCH ×2 (09:32→11:35)
[2021-03-05] MEDS ORDERED: CARVEDILOL 25 MG TABLET (FP) PO SCH (10:00)
[2021-03-05] MEDS ORDERED: ZINC SULFATE 220 MG CAPSULE (FP) PO SCH (10:00)
[2021-03-05] MEDS ORDERED: LOSARTAN POTASSIUM 50 MG TABLET PO SCH (10:00)
[2021-03-05] MEDS ORDERED: POLYETHYLENE GLYCOL (HEALTHYLAX) 3350 17 GM PACKET PO SCH (10:00)
[2021-03-05] MEDS ORDERED: ASCORBIC ACID 500 MG TABLET (FP) PO SCH (10:00)
[2021-03-05] MEDS ORDERED: CLOPIDOGREL BISULFATE 75 MG TABLET (FP) PO SCH (10:00)
[2021-03-05] MEDS ORDERED: MULTIVITAMINS (DAILY MVI) TABLET (FP) PO SCH (10:00)
[2021-03-05] MEDS ORDERED: PANTOPRAZOLE 40 MG TABLET PO SCH (10:00)
[2021-03-05] MEDS ORDERED: ENOXAPARIN NA (PORCINE) 40 MG/0.4 ML DISP.SYRIN SQ SCH (10:00)
[2021-03-05] MEDS ORDERED: FINASTERIDE 5 MG TABLET (FP) PO SCH (10:00)
[2021-03-05 11:35] VITALS: TEMP 98.3
[2021-03-05 17:00] VITALS: BP 134/82; PULSE 82
== END 2021-03-05 17:03 | DRG 522 ==
LOC: JER 22:50 → JERBED 02-26 04:16 → J6S 02-26 11:21 → JICU 02-28 08:34 → J2W 03-03 23:40
PROVIDERS: ADMIT Internal Medicine; ATTEND Internal Medicine
PROC: 0SRR0JA Replacement of Right Hip Joint, Femoral Surface with Synthetic Substitute, Uncemented, Open Approach (ICD-10-PCS; principal; 2021-02-26 13:00)
PROC: 30233N1 Transfusion of Nonautologous Red Blood Cells into Peripheral Vein, Percutaneous Approach (ICD-10-PCS; 2021-03-04)
DX: S72.001A Fracture of unspecified part of neck of right femur, initial encounter for closed fracture (principal); M50.00 Cervical disc disorder with myelopathy, unspecified cervical region; D64.9 Anemia, unspecified; I10 Essential (primary) hypertension; E78.5 Hyperlipidemia, unspecified; I25.10 Atherosclerotic heart disease of native coronary artery without angina pectoris; L89.152 Pressure ulcer of sacral region, stage 2; E11.40 Type 2 diabetes mellitus with diabetic neuropathy, unspecified; R41.0 Disorientation, unspecified; N40.0 Benign prostatic hyperplasia without lower urinary tract symptoms; E11.22 Type 2 diabetes mellitus with diabetic chronic kidney disease; W19.XXXA Unspecified fall, initial encounter; Y93.9 Activity, unspecified; Y92.129 Unspecified place in nursing home as the place of occurrence of the external cause; Y99.9 Unspecified external cause status
CPT/HCPCS: 36415; 36430; 70450-TC; 71045-TC-FY; 73501-TC-RT-FY; 73523-TC-FY; 73552-TC-RT-FY; 80048; 80053; 80061; 81003; 82550; 82553; 82728; 82962; 83036; 83540; 83550; 83735; 84100; 84155; 84156; 84157; 84165; 84484; 85025; 85027; 85610; 85730; 86850; 86900; 86901; 86922; 88305-TC; 88311-TC; 93005; 93010; 94760; 97010-GP; 97116-GP; 97162-GP; 99285-25; C9803; J0131; J0475; P9058; U0003; U0005

== ENCOUNTER 2021-03-30 15:07 | Inpatient (IN) | payer OTHER ==
[2021-03-30] MEDS ORDERED: MEROPENEM 1 GM in DEXTROSE 5%-WATER 100 ML IVPB ONE (17:39)
[2021-03-30] MEDS ORDERED: VANCOMYCIN 1 GM in D5W (PRE-DOCKED) 1,000 MG/250 ML IVPB ONE (17:39)
[2021-03-30 18:10] LABS: BASO % 0.9 % (0-2.0); EOS % 1.3 % (0-4.5); HEMATOCRIT 35.2 % (35.4-49); HEMOGLOBIN 11.6 GM/dL (11.7-16.9); LYMPH % 23.1 % (8-40); MCH 29.7 pg (25.7-33.7); MCHC 32.9 g/dl (32.0-35.9); MEAN CELL VOLUME 90.2 fl (80-96); MEAN PLT VOLUME 10.1 fl (7.5-11.1); MONO % 5.9 % (3.8-10.2); NEUT % 68.8 % (42.8-82.8); PLATELET COUNT 302 10^3/uL (134-434); RDW 17.5 % (11.9-15.9); WHITE BLOOD COUNT 6.2 K/mm3 (4.0-10.0)
[2021-03-30 18:18] LABS: INR 1.2 (0.83-1.09); PROTHROMBIN TIME (PATIENT) 13.5 SEC (9.7-13.0)
[2021-03-30 18:21] LABS: ACTIVATED PTT 33.7 SECONDS (25.2-36.5)
[2021-03-30 18:38] LABS: BLOOD UREA NITROGEN 15.2 mg/dL (7-18)
[2021-03-30 18:39] LABS: CALCIUM 8.9 mg/dL (8.5-10.1)
[2021-03-30 18:40] LABS: MAGNESIUM 2.4 mg/dL (1.8-2.4)
[2021-03-30 18:43] LABS: BILIRUBIN,TOTAL 0.4 mg/dL (0.2-1)
[2021-03-30 18:44] LABS: CREATININE 1.1 mg/dL (0.55-1.3)
[2021-03-30 18:45] LABS: TOT PROT 8.8 g/dl (6.4-8.2)
[2021-03-30] MEDS ORDERED: MEROPENEM 1 GM VIAL (RESTRICTED TO ID) IVPB ONE (18:56)
[2021-03-30] MEDS ORDERED: VANCOMYCIN 1 GRAM (PRE-DOCKED) 1,000 MG/250 ML BAG IVPB ONE (22:14)
[2021-03-31] MEDS ORDERED: DEXTROSE 5%-0.45% SALINE 1,000 ML IV SCH (00:01)
[2021-03-31 03:40] VITALS: BMI 27.2
[2021-03-31] MEDS: MEROPENEM 1 GM in DEXTROSE 5%-WATER 100 ML IVPB SCH ×2 (06:24→13:38)
[2021-03-31 08:10] LABS: BASO % 0.6 % (0-2.0); EOS % 0.9 % (0-4.5); HEMOGLOBIN 10.2 GM/dL (11.7-16.9); LYMPH % 11.1 % (8-40); MCH 29.5 pg (25.7-33.7); MCHC 32.8 g/dl (32.0-35.9); MEAN CELL VOLUME 90.1 fl (80-96); MEAN PLT VOLUME 9.9 fl (7.5-11.1); MONO % 6.3 % (3.8-10.2); NEUT % 81.1 % (42.8-82.8); PLATELET COUNT 259 10^3/uL (134-434); RBC 3.44 M/mm3 (4.00-5.60); RDW 17.6 % (11.9-15.9); WHITE BLOOD COUNT 6.5 K/mm3 (4.0-10.0)
[2021-03-31 08:30] LABS: ALBUMIN 2.5 g/dl (3.4-5.0)
[2021-03-31 08:31] LABS: CALCIUM 8.3 mg/dL (8.5-10.1)
[2021-03-31 08:36] LABS: BILIRUBIN,TOTAL 0.3 mg/dL (0.2-1); TOT PROT 7.2 g/dl (6.4-8.2)
[2021-03-31] MEDS ORDERED: FLU VACC QS2021-22(6MOS UP)/PF 60 MCG/0.5 ML SYRINGE IM ONE (10:00)
[2021-03-31] MEDS ORDERED: PROMETHAZINE HCL 25 MG/1 ML VIAL IVPB PRN ×2 (11:05→12:47)
[2021-03-31] MEDS ORDERED: ONDANSETRON 4 MG/2 ML VIAL IVPUSH PRN ×2 (11:05→12:47)
[2021-03-31] MEDS ORDERED: MIDAZOLAM HCL 2 MG/2 ML SINGLE DOSE VIAL ONE (11:08)
[2021-03-31] MEDS ORDERED: DEXTROSE 5%-WATER 100 ML IVPB ONE (11:10)
[2021-03-31] MEDS ORDERED: MEROPENEM 1 GM VIAL (RESTRICTED TO ID) IVPB ONE ×2 (11:10→11:34)
[2021-03-31] MEDS ORDERED: LACTATED RINGERS SOLUTION 1,000 ML IV SCH ×2 (11:15→12:47)
[2021-03-31] MEDS ORDERED: LIDOCAINE HCL 2% (50ML VIAL) NR ONE (11:39)
[2021-03-31] MEDS ORDERED: PROPOFOL 20 ML ONE (11:48)
[2021-03-31] MEDS: DEXTROSE 5%-0.45% SALINE 1,000 ML IV SCH (13:45)
[2021-03-31] MEDS ORDERED: VANCOMYCIN 1,000 MG in DEXTROSE 5%-WATER - 250 ML IVPB SCH (17:30)
[2021-03-31] MEDS: oxyCODONE HCL 5 MG TABLET PO PRN (17:42)
[2021-03-31] MEDS ORDERED: CEFEPIME HCL 1 GM VIAL (RESTRICTED TO ID) ONE (17:52)
[2021-03-31] MEDS ORDERED: DEXTROSE 5%-WATER - 50 ML IVPB ONE (17:52)
[2021-03-31] MEDS ORDERED: MEROPENEM 1 GM in DEXTROSE 5%-WATER 100 ML IVPB SCH (18:00)
[2021-03-31] MEDS: CEFEPIME 1 GM in DEXTROSE 5%-WATER - 50 ML IVPB SCH (18:07)
[2021-03-31] MEDS: VANCOMYCIN 1 GRAM (PRE-DOCKED) 1,000 MG/250 ML BAG IVPB SCH (20:33)
[2021-04-01] MEDS ORDERED: DEXTROSE 5%-WATER - 50 ML IVPB ONE ×3 (01:16→16:29)
[2021-04-01] MEDS ORDERED: CEFEPIME HCL 1 GM VIAL (RESTRICTED TO ID) ONE ×3 (01:16→16:29)
[2021-04-01] MEDS: oxyCODONE HCL 5 MG TABLET PO PRN ×2 (01:26→09:45)
[2021-04-01] MEDS: CEFEPIME 1 GM in DEXTROSE 5%-WATER - 50 ML IVPB SCH ×3 (01:26→17:23)
[2021-04-01] MEDS: DEXTROSE 5%-0.45% SALINE 1,000 ML IV SCH ×2 (06:35→17:21)
[2021-04-01] MEDS: VANCOMYCIN 1 GRAM (PRE-DOCKED) 1,000 MG/250 ML BAG IVPB SCH (18:52)
[2021-04-02] MEDS ORDERED: CEFEPIME HCL 1 GM VIAL (RESTRICTED TO ID) ONE ×2 (02:44→09:07)
[2021-04-02] MEDS ORDERED: DEXTROSE 5%-WATER - 50 ML IVPB ONE ×2 (02:44→09:07)
[2021-04-02] MEDS: CEFEPIME 1 GM in DEXTROSE 5%-WATER - 50 ML IVPB SCH ×2 (02:47→09:29)
[2021-04-02] MEDS: AMINO ACIDS/PROTEIN HYDROLYS 30 ML LIQUID.PKT PO SCH (09:29)
[2021-04-02] MEDS: MULTIVITAMINS (DAILY MVI) TABLET (FP) PO SCH (09:29)
[2021-04-02] MEDS ORDERED: NALOXONE HCL 0.4 MG/ML VIAL IVPUSH ONE (17:57)
[2021-04-02] MEDS ORDERED: NALOXONE HCL 0.4 MG/ML VIAL ONE (17:57)
[2021-04-02] MEDS ORDERED: ceFAZolin 2 GRAM PREMIX BAG IVPB SCH (18:00)
[2021-04-02] MEDS ORDERED: CEFAZOLIN 2 GM in DEXTROSE 5%-WATER - 100 ML IVPB SCH (18:00)
[2021-04-02] MEDS ORDERED: ASPIRIN 81 MG CHEWABLE TABLETS PO ONE (18:43)
[2021-04-02 18:46] LABS: ARTERIAL BLD GAS O2 SATURATION 90.8 % (95-98); ARTERIAL BLOOD GAS BASE EXCESS -4.1 mmol/L (-2-2); ARTERIAL BLOOD GAS PO2 63.9 mmHg (80-100); ARTERIAL BLOOD GAS pH 7.323 (7.350-7.450)
[2021-04-02 18:47] LABS: ALLENS TEST POSITIVE
[2021-04-02 19:20] LABS: HEMATOCRIT 33.1 % (35.4-49); HEMOGLOBIN 10.8 GM/dL (11.7-16.9); MCH 29.5 pg (25.7-33.7); MCHC 32.5 g/dl (32.0-35.9); MEAN CELL VOLUME 90.8 fl (80-96); MEAN PLT VOLUME 9.5 fl (7.5-11.1); PLATELET COUNT 285 10^3/uL (134-434); RBC 3.65 M/mm3 (4.00-5.60); RDW 16.9 % (11.9-15.9); WHITE BLOOD COUNT 7.6 K/mm3 (4.0-10.0)
[2021-04-02] MEDS ORDERED: NALOXONE HCL 0.4 MG/ML VIAL IVPUSH PRN (19:33)
[2021-04-02 19:36] LABS: CALCIUM 8.4 mg/dL (8.5-10.1)
[2021-04-02 19:38] LABS: ALBUMIN 2.9 g/dl (3.4-5.0); BLOOD UREA NITROGEN 19.3 mg/dL (7-18); MAGNESIUM 2.4 mg/dL (1.8-2.4)
[2021-04-02 19:41] LABS: CREATININE 1.2 mg/dL (0.55-1.3)
[2021-04-02 19:42] LABS: BILIRUBIN,TOTAL 0.3 mg/dL (0.2-1); TOT PROT 8.1 g/dl (6.4-8.2)
[2021-04-02] MEDS: SODIUM CHLORIDE 1,000 ML IV SCH (20:25)
[2021-04-02 20:48] LABS: BASO % 0.7 % (0-2.0); EOS % 0.4 % (0-4.5); HEMOGLOBIN 11.3 GM/dL (11.7-16.9); LYMPH % 8.9 % (8-40); MCH 29.9 pg (25.7-33.7); MCHC 33.2 g/dl (32.0-35.9); MEAN CELL VOLUME 90.2 fl (80-96); MEAN PLT VOLUME 9.7 fl (7.5-11.1); MONO % 4.9 % (3.8-10.2); NEUT % 85.1 % (42.8-82.8); PLATELET COUNT 297 10^3/uL (134-434); RBC 3.77 M/mm3 (4.00-5.60); RDW 17.2 % (11.9-15.9)
[2021-04-02 20:56] LABS: INR 1.16 (0.83-1.09); PROTHROMBIN TIME (PATIENT) 13.6 SEC (9.7-13.0)
[2021-04-02 20:59] LABS: ACTIVATED PTT 28.6 SECONDS (25.2-36.5)
[2021-04-02] MEDS: DEXTROSE 5%-0.45% SALINE 1,000 ML IV SCH (21:24)
[2021-04-02] MEDS: ATORVASTATIN CA 80 MG TABLET (FP) PO SCH (22:24)
[2021-04-02 22:38] LABS: URINE APPEARANCE CLEAR; URINE BILIRUBIN NEGATIVE (NEGATIVE); URINE COLOR YELLOW; URINE GLUCOSE (UA) NEGATIVE (NEGATIVE); URINE KETONE NEGATIVE (NEGATIVE); URINE LEUK ESTERASE NEGATIVE (NEGATIVE); URINE NITRITE NEGATIVE (NEGATIVE); URINE PROTEIN TRACE (NEGATIVE); URINE UROBILINOGEN 0.2 mg/dL (0.2-1.0)
[2021-04-03] MEDS: CEFAZOLIN 2 GM in SODIUM CHLORIDE 100 ML IVPB SCH ×3 (01:44→18:07)
[2021-04-03 08:33] LABS: BASO % 0.4 % (0-2.0); EOS % 0.8 % (0-4.5); HEMATOCRIT 29.5 % (35.4-49); HEMOGLOBIN 9.7 GM/dL (11.7-16.9); LYMPH % 16.1 % (8-40); MCH 29.5 pg (25.7-33.7); MCHC 32.9 g/dl (32.0-35.9); MEAN CELL VOLUME 89.7 fl (80-96); MEAN PLT VOLUME 9.4 fl (7.5-11.1); MONO % 10.9 % (3.8-10.2); NEUT % 71.8 % (42.8-82.8); PLATELET COUNT 233 10^3/uL (134-434); RDW 16.8 % (11.9-15.9); WHITE BLOOD COUNT 6.2 K/mm3 (4.0-10.0)
[2021-04-03 09:01] LABS: CALCIUM 8.4 mg/dL (8.5-10.1)
[2021-04-03 09:02] LABS: ALBUMIN 2.7 g/dl (3.4-5.0); BLOOD UREA NITROGEN 18.9 mg/dL (7-18)
[2021-04-03 09:05] LABS: CREATININE 1.1 mg/dL (0.55-1.3)
[2021-04-03 09:06] LABS: BILIRUBIN,TOTAL 0.5 mg/dL (0.2-1); TOT PROT 7.5 g/dl (6.4-8.2)
[2021-04-03] MEDS ORDERED: PT OWN MED DRAWER 7, Y5N ONE ×2 (09:35→16:27)
[2021-04-03] MEDS: AMINO ACIDS/PROTEIN HYDROLYS 30 ML LIQUID.PKT PO SCH (09:38)
[2021-04-03] MEDS: MULTIVITAMINS (DAILY MVI) TABLET (FP) PO SCH (09:38)
[2021-04-03] MEDS ORDERED: amLODIPine BESYLATE 5 MG TABLET (FP) PO SCH (13:00)
[2021-04-03] MEDS: LOSARTAN POTASSIUM 50 MG TABLET PO SCH (17:27)
[2021-04-03] MEDS: CARVEDILOL 25 MG TABLET (FP) PO SCH (21:29)
[2021-04-03] MEDS: ATORVASTATIN CA 80 MG TABLET (FP) PO SCH (21:30)
[2021-04-03] MEDS: SODIUM CHLORIDE 1,000 ML IV SCH (21:34)
[2021-04-03] MEDS ORDERED: CARVEDILOL 25 MG TABLET (FP) PO SCH (22:00)
[2021-04-04] MEDS: CEFAZOLIN 2 GM in SODIUM CHLORIDE 100 ML IVPB SCH ×3 (01:44→19:00)
[2021-04-04] MEDS: AMINO ACIDS/PROTEIN HYDROLYS 30 ML LIQUID.PKT PO SCH (08:30)
[2021-04-04] MEDS: CARVEDILOL 25 MG TABLET (FP) PO SCH ×2 (09:38→21:20)
[2021-04-04] MEDS: MULTIVITAMINS (DAILY MVI) TABLET (FP) PO SCH (09:38)
[2021-04-04] MEDS: LOSARTAN POTASSIUM 50 MG TABLET PO SCH (09:38)
[2021-04-04] MEDS: ATORVASTATIN CA 80 MG TABLET (FP) PO SCH (21:20)
[2021-04-04] MEDS ORDERED: INSULIN SLIDING SCALE (NOVOLOG) 1 VIAL SQ SCH (22:00)
[2021-04-05] MEDS ORDERED: NALOXONE HCL 0.4 MG/ML VIAL IVPUSH PRN (00:12)
[2021-04-05] MEDS: CEFAZOLIN 2 GM in SODIUM CHLORIDE 100 ML IVPB SCH ×3 (01:45→17:30)
[2021-04-05] MEDS: INSULIN SLIDING SCALE (NOVOLOG) 1 VIAL SQ SCH ×4 (06:18→22:56)
[2021-04-05] MEDS: AMINO ACIDS/PROTEIN HYDROLYS 30 ML LIQUID.PKT PO SCH (08:54)
[2021-04-05] MEDS: MULTIVITAMINS (DAILY MVI) TABLET (FP) PO SCH (10:58)
[2021-04-05] MEDS: CARVEDILOL 25 MG TABLET (FP) PO SCH ×2 (10:59→22:12)
[2021-04-05] MEDS: LOSARTAN POTASSIUM 50 MG TABLET PO SCH (10:59)
[2021-04-05] MEDS ORDERED: ATORVASTATIN CA 80 MG TABLET (FP) PO SCH (22:00)
[2021-04-06] MEDS: CEFAZOLIN 2 GM in SODIUM CHLORIDE 100 ML IVPB SCH ×2 (02:06→10:12)
[2021-04-06] MEDS: INSULIN SLIDING SCALE (NOVOLOG) 1 VIAL SQ SCH ×2 (10:08→11:41)
[2021-04-06] MEDS: LOSARTAN POTASSIUM 50 MG TABLET PO SCH (10:11)
[2021-04-06] MEDS: AMINO ACIDS/PROTEIN HYDROLYS 30 ML LIQUID.PKT PO SCH (10:11)
[2021-04-06] MEDS: MULTIVITAMINS (DAILY MVI) TABLET (FP) PO SCH (10:11)
[2021-04-06] MEDS: CARVEDILOL 25 MG TABLET (FP) PO SCH (10:11)
[2021-04-06] MEDS ORDERED: CEPHALEXIN MONOHYDRATE 500 MG CAPSULE (UD) PO SCH (14:00)
[2021-04-06 14:57] VITALS: BP 149/77; PULSE 83; TEMP 98.5
== END 2021-04-06 16:54 | DRG 617 ==
LOC: JER 15:07 → JERBED 18:43 → J7W 03-31 02:44 → J4S 04-02 19:37 → J5S 04-04 23:38
PROVIDERS: ATTEND Family Medicine
PROC: 0QBR0ZX Excision of Left Toe Phalanx, Open Approach, Diagnostic (ICD-10-PCS; 2021-03-31)
PROC: 0Y6U0Z1 Detachment at Left 3rd Toe, High, Open Approach (ICD-10-PCS; principal; 2021-03-31 11:00)
DX: E11.69 Type 2 diabetes mellitus with other specified complication (principal); L97.528 Non-pressure chronic ulcer of other part of left foot with other specified severity; M86.9 Osteomyelitis, unspecified; E11.52 Type 2 diabetes mellitus with diabetic peripheral angiopathy with gangrene; G04.1 Tropical spastic paraplegia; G95.9 Disease of spinal cord, unspecified; E11.621 Type 2 diabetes mellitus with foot ulcer; I25.10 Atherosclerotic heart disease of native coronary artery without angina pectoris; I10 Essential (primary) hypertension; E11.42 Type 2 diabetes mellitus with diabetic polyneuropathy; E78.00 Pure hypercholesterolemia, unspecified; E78.5 Hyperlipidemia, unspecified; D64.9 Anemia, unspecified; N40.0 Benign prostatic hyperplasia without lower urinary tract symptoms; K57.90 Diverticulosis of intestine, part unspecified, without perforation or abscess without bleeding; Z86.718 Personal history of other venous thrombosis and embolism; Z88.0 Allergy status to penicillin; Z96.641 Presence of right artificial hip joint
CPT/HCPCS: 36415; 36600; 70450-TC; 70551-TC; 71045-TC-FY; 73630-TC-LT; 80053; 80061; 81003; 82550; 82803; 82962; 83036; 83735; 84484; 85025; 85027; 85610; 85730; 86850; 86900; 86901; 87040; 87070; 87075; 87077; 87186; 87205; 88305-TC; 88311-TC; 93005; 93010; 94760; 97116-GP; 97161-GP; 99285-25; C9803; G0463-25; U0003; U0005

== ENCOUNTER 2021-05-18 07:43 | Observation (INO) | payer OTHER ==
[2021-05-18] MEDS ORDERED: NALOXONE HCL 0.4 MG/ML VIAL IVPUSH ONE ×3 (09:53→11:24)
[2021-05-18] MEDS ORDERED: NALOXONE HCL 0.4 MG/ML VIAL ONE ×2 (09:55→11:46)
[2021-05-18 10:20] LABS: BASO % 0.4 % (0-2.0); EOS % 0.5 % (0-4.5); HEMATOCRIT 34.5 % (35.4-49); HEMOGLOBIN 11.1 GM/dL (11.7-16.9); LYMPH % 7.9 % (8-40); MCH 29.2 pg (25.7-33.7); MCHC 32.2 g/dl (32.0-35.9); MEAN CELL VOLUME 90.6 fl (80-96); MEAN PLT VOLUME 10.4 fl (7.5-11.1); MONO % 3.8 % (3.8-10.2); NEUT % 87.4 % (42.8-82.8); PLATELET COUNT 201 10^3/uL (134-434); RDW 15.9 % (11.9-15.9); WHITE BLOOD COUNT 8.4 K/mm3 (4.0-10.0)
[2021-05-18 10:27] LABS: INR 1.14 (0.83-1.09); PROTHROMBIN TIME (PATIENT) 13.1 SEC (9.7-13.0)
[2021-05-18 10:29] LABS: ACTIVATED PTT 30.6 SECONDS (25.2-36.5)
[2021-05-18 10:37] LABS: CHLORIDE 109 mmol/L (98-107); SODIUM 139 mmol/L (136-145)
[2021-05-18 10:38] LABS: CALCIUM 8.3 mg/dL (8.5-10.1)
[2021-05-18 10:39] LABS: ALBUMIN 3.1 g/dl (3.4-5.0); ANION GAP 3 MMOL/L (8-16); BLOOD UREA NITROGEN 13.1 mg/dL (7-18); CO2 27 mmol/L (21-32); GLUCOSE,RANDOM 111 mg/dL (74-106); MAGNESIUM 2.1 mg/dL (1.8-2.4)
[2021-05-18 10:42] LABS: CREATININE 1.1 mg/dL (0.55-1.3); SGOT/AST 42 U/L (15-37); SGPT/ALT 19 U/L (13-61)
[2021-05-18 10:53] LABS: ALK PHOS 107 U/L (45-117); BILIRUBIN,TOTAL 0.4 mg/dL (0.2-1); TOT PROT 7.7 g/dl (6.4-8.2)
[2021-05-18] MEDS ORDERED: NALOXONE HCL 2 MG in DEXTROSE 5%-WATER - 495 ML IV SCH (11:30)
[2021-05-18] MEDS: NALOXONE HCL 2 MG in DEXTROSE 5%-WATER - 495 ML IV SCH (12:05)
[2021-05-18 12:09] LABS: EPI CELLS >36 /uL (0-25.1); HYALINE CASTS 2 /uL (0-3.1); PH,URINE 5.5 (5.0-8.0); URINE APPEARANCE CLEAR; URINE BACTERIA 11 /uL (0-1359); URINE BILIRUBIN NEGATIVE (NEGATIVE); URINE COLOR YELLOW; URINE GLUCOSE (UA) NEGATIVE (NEGATIVE); URINE KETONE NEGATIVE (NEGATIVE); URINE LEUK ESTERASE NEGATIVE (NEGATIVE); URINE NITRITE NEGATIVE (NEGATIVE); URINE PROTEIN NEGATIVE (NEGATIVE); URINE RBC 17 /uL (0-23.9); URINE WBC 15 /uL (0-25.8)
[2021-05-18 12:15] LABS: URINE BARBITURATES NEGATIVE (NEGATIVE)
[2021-05-18 12:16] LABS: PHENCYCLIDINE,URINE NEGATIVE (NEGATIVE)
[2021-05-18 12:23] LABS: COCAINE, UR NEGATIVE (NEGATIVE); METHADONE, UR NEGATIVE (NEGATIVE); OPIATES, URI POSITIVE (NEGATIVE); URINE AMPHETAMINES NEGATIVE (NEGATIVE); URINE BENZODIAZEPINES NEGATIVE (NEGATIVE)
[2021-05-18] MEDS ORDERED: ACETAMINOPHEN 325 MG TABLET (FP) PO PRN (17:55)
[2021-05-18] MEDS ORDERED: ALBUTEROL SO4 HFA INHALER IH PRN (17:55)
[2021-05-18] MEDS ORDERED: DEXAMETHASONE SOD PHOSPHATE 10 MG/1 ML VIAL IVPUSH SCH (18:00)
[2021-05-18] MEDS ORDERED: LABETALOL HCL 100 MG TABLET (FP) PO ONE (18:28)
[2021-05-18] MEDS ORDERED: DEXAMETHASONE SOD PHOSPHATE 10 MG/1 ML VIAL ONE (18:58)
[2021-05-18] MEDS ORDERED: LABETALOL HCL 100 MG TABLET (FP) ONE (18:58)
[2021-05-18] MEDS ORDERED: DOCUSATE SODIUM 100 MG CAPSULE (FP) PO PRN (19:07)
[2021-05-18 19:16] LABS: ARTERIAL BLD GAS O2 SATURATION 95.1 % (95-98); ARTERIAL BLOOD GAS BASE EXCESS 1.3 mmol/L (-2-2); ARTERIAL BLOOD GAS PO2 78.8 mmHg (80-100)
[2021-05-18 19:18] LABS: ALLENS TEST POSITIVE
[2021-05-18] MEDS ORDERED: ACETAMINOPHEN 325 MG TABLET (FP) ONE (21:50)
[2021-05-18] MEDS ORDERED: CARVEDILOL 12.5 MG TABLET (FP) ONE (21:50)
[2021-05-18] MEDS ORDERED: LOSARTAN POTASSIUM 50 MG TABLET ONE (21:51)
[2021-05-18] MEDS ORDERED: ATORVASTATIN CA 80 MG TABLET (FP) ONE (21:51)
[2021-05-18] MEDS: LOSARTAN POTASSIUM 50 MG TABLET PO SCH (21:52)
[2021-05-18] MEDS: BUDESONIDE/FORMETEROL FUMARATE 160/4.5 mcg INHALER IH SCH (21:52)
[2021-05-18] MEDS: CARVEDILOL 25 MG TABLET (FP) PO SCH (21:52)
[2021-05-18] MEDS ORDERED: ATORVASTATIN CA 80 MG TABLET (FP) PO SCH (22:00)
[2021-05-19 05:55] VITALS: BMI 30.9
[2021-05-19] MEDS ORDERED: ASPIRIN 325 MG TABLET PO SCH (08:00)
[2021-05-19] MEDS ORDERED: ASPIRIN COATED 81 MG TABLET.EC PO SCH (08:00)
[2021-05-19] MEDS ORDERED: DEXAMETHASONE SOD PHOSPHATE 10 MG/1 ML VIAL IVPUSH SCH (10:00)
[2021-05-19] MEDS ORDERED: CLOPIDOGREL BISULFATE 75 MG TABLET (FP) PO SCH (10:00)
[2021-05-19] MEDS: LOSARTAN POTASSIUM 50 MG TABLET PO SCH (10:13)
[2021-05-19] MEDS: CARVEDILOL 25 MG TABLET (FP) PO SCH (10:13)
[2021-05-19] MEDS: BUDESONIDE/FORMETEROL FUMARATE 160/4.5 mcg INHALER IH SCH (10:13)
[2021-05-19 11:24] LABS: BASO % 0.4 % (0-2.0); HEMATOCRIT 34.8 % (35.4-49); HEMOGLOBIN 11.2 GM/dL (11.7-16.9); LYMPH % 17.9 % (8-40); MCH 29.1 pg (25.7-33.7); MCHC 32.1 g/dl (32.0-35.9); MEAN CELL VOLUME 90.7 fl (80-96); MEAN PLT VOLUME 10.4 fl (7.5-11.1); MONO % 8.2 % (3.8-10.2); NEUT % 73.5 % (42.8-82.8); PLATELET COUNT 205 10^3/uL (134-434); RBC 3.83 M/mm3 (4.00-5.60); RDW 16.3 % (11.9-15.9); WHITE BLOOD COUNT 6.2 K/mm3 (4.0-10.0)
[2021-05-19 11:43] LABS: CHLORIDE 107 mmol/L (98-107); SODIUM 139 mmol/L (136-145)
[2021-05-19 11:46] LABS: CALCIUM 8.6 mg/dL (8.5-10.1)
[2021-05-19 11:47] LABS: ALBUMIN 3.3 g/dl (3.4-5.0); ANION GAP 4 MMOL/L (8-16); CO2 28 mmol/L (21-32); GLUCOSE,RANDOM 88 mg/dL (74-106)
[2021-05-19 11:50] LABS: CREATININE 1.1 mg/dL (0.55-1.3); SGOT/AST 15 U/L (15-37); SGPT/ALT 19 U/L (13-61)
[2021-05-19 11:51] LABS: BILIRUBIN,TOTAL 0.5 mg/dL (0.2-1); TOT PROT 7.8 g/dl (6.4-8.2)
[2021-05-19 11:52] LABS: ALK PHOS 109 U/L (45-117); LDH 172 U/L (87-246)
[2021-05-19] MEDS ORDERED: SODIUM ZIRCONIUM CYCLOSILICATE (LOKELMA) 5 GM PACKET PO SCH (13:15)
[2021-05-19] MEDS: NALOXONE HCL 2 MG in DEXTROSE 5%-WATER - 495 ML IV SCH (13:29)
[2021-05-19 15:22] VITALS: BP 151/89; PULSE 83; TEMP 98.4
== END 2021-05-19 19:28 ==
LOC: JER 07:43 → JERBED 13:11 → UNDOADMOB 13:11 → INTOOBSV 13:11 → J5S 05-19 04:25 → JERBED 05-19 04:25 → J5S 05-19 12:20 → JERBED 05-19 12:20
PROVIDERS: ADMIT Internal Medicine; ATTEND Nurse Practitioner Acute Care
PROC: 3E033GC Introduction of Other Therapeutic Substance into Peripheral Vein, Percutaneous Approach (ICD-10-PCS; principal; 2021-05-19)
PROC: 3E033NZ Introduction of Analgesics, Hypnotics, Sedatives into Peripheral Vein, Percutaneous Approach (ICD-10-PCS; 2021-05-19)
DX: T40.2X1A Poisoning by other opioids, accidental (unintentional), initial encounter (principal); U07.1 COVID-19; I25.10 Atherosclerotic heart disease of native coronary artery without angina pectoris; N17.9 Acute kidney failure, unspecified; E78.5 Hyperlipidemia, unspecified; M86.9 Osteomyelitis, unspecified; R41.82 Altered mental status, unspecified; I73.9 Peripheral vascular disease, unspecified; I10 Essential (primary) hypertension; M19.90 Unspecified osteoarthritis, unspecified site; N40.0 Benign prostatic hyperplasia without lower urinary tract symptoms; Z96.698 Presence of other orthopedic joint implants; Z29.9 Encounter for prophylactic measures, unspecified; Z86.718 Personal history of other venous thrombosis and embolism; Z87.891 Personal history of nicotine dependence; Y92.099 Unspecified place in other non-institutional residence as the place of occurrence of the external cause; E11.9 Type 2 diabetes mellitus without complications
CPT/HCPCS: 36415; 36600; 70450-TC; 71045-TC-FY; 72125-TC; 80053; 80307; 81003; 82550; 82553; 82728; 82803; 82962; 83615; 83735; 84484; 85025; 85379; 85610; 85730; 86140; 87086; 93005; 93010; 96374; 96375; 96376; 99285-25; C9803; G0378; J1100; U0003; U0005

== ENCOUNTER 2023-05-31 11:10 | Inpatient (IN) | payer OTHER ==
[2023-05-31 15:23] LABS: EOS % 1.8 % (0-4.5); HEMATOCRIT 40.1 % (35.4-49); HEMOGLOBIN 13.2 GM/dL (11.7-16.9); LYMPH % 24.1 % (8-40); MCH 30.7 pg (25.7-33.7); MCHC 32.9 g/dl (32.0-35.9); MEAN CELL VOLUME 93.2 fl (80-96); MEAN PLT VOLUME 10.2 fl (7.5-11.1); MONO % 7.6 % (3.8-10.2); NEUT % 65.5 % (42.8-82.8); PLATELET COUNT 173 10^3/uL (134-434); RBC 4.31 M/mm3 (4.00-5.60); RDW 14.1 % (11.9-15.9); WHITE BLOOD COUNT 6.9 K/mm3 (4.0-10.0)
[2023-05-31 15:34] LABS: INR 1.14 (0.83-1.09); PROTHROMBIN TIME (PATIENT) 13.2 SEC (9.7-13.0)
[2023-05-31 15:50] LABS: POTASSIUM 4.7 mmol/L (3.5-5.1)
[2023-05-31 15:52] LABS: ALBUMIN 4.1 g/dl (3.4-5.0); CALCIUM 9.1 mg/dL (8.5-10.1)
[2023-05-31 15:54] LABS: BLOOD UREA NITROGEN 31.3 mg/dL (7-18)
[2023-05-31 15:56] LABS: CREATININE 1.5 mg/dL (0.55-1.3)
[2023-05-31 15:57] LABS: BILIRUBIN,TOTAL 0.5 mg/dL (0.2-1); TOT PROT 9.6 g/dl (6.4-8.2)
[2023-05-31] MEDS: SODIUM CHLORIDE 0.9% 500 ML INFUS.BAG IV ONE (17:16)
[2023-05-31 20:19] LABS: POTASSIUM 4.3 mmol/L (3.5-5.1)
[2023-05-31 20:21] LABS: CALCIUM 8.2 mg/dL (8.5-10.1)
[2023-05-31 20:22] LABS: ALBUMIN 3.5 g/dl (3.4-5.0); BLOOD UREA NITROGEN 30.1 mg/dL (7-18)
[2023-05-31 20:25] LABS: CREATININE 1.5 mg/dL (0.55-1.3)
[2023-05-31 20:26] LABS: BILIRUBIN,TOTAL 0.4 mg/dL (0.2-1)
[2023-05-31 20:27] LABS: TOT PROT 7.9 g/dl (6.4-8.2)
[2023-05-31] MEDS ORDERED: DOCUSATE SODIUM 100 MG CAPSULE (FP) PO PRN (21:35)
[2023-05-31] MEDS ORDERED: ACETAMINOPHEN 325 MG TABLET (FP) PO PRN (21:35)
[2023-05-31] MEDS: SODIUM CHLORIDE 0.45% 1,000 ML IV SCH (22:04)
[2023-05-31] MEDS: INSULIN ASPART SLIDING SCALE (NOVOLOG) 1 VIAL SQ SCH (22:07)
[2023-06-01] MEDS ORDERED: ALBUTEROL SO4 HFA INHALER IH PRN (06:37)
[2023-06-01 07:53] LABS: BASO % 0.5 % (0-2.0); EOS % 1.8 % (0-4.5); HEMATOCRIT 35.4 % (35.4-49); HEMOGLOBIN 12.1 GM/dL (11.7-16.9); LYMPH % 22.7 % (8-40); MCH 31.3 pg (25.7-33.7); MCHC 34.1 g/dl (32.0-35.9); MEAN CELL VOLUME 91.7 fl (80-96); MEAN PLT VOLUME 10.9 fl (7.5-11.1); MONO % 7.3 % (3.8-10.2); NEUT % 67.7 % (42.8-82.8); PLATELET COUNT 163 10^3/uL (134-434); RBC 3.86 M/mm3 (4.00-5.60); RDW 14.2 % (11.9-15.9); WHITE BLOOD COUNT 6.5 K/mm3 (4.0-10.0)
[2023-06-01 08:10] LABS: POTASSIUM 4.1 mmol/L (3.5-5.1)
[2023-06-01 08:16] LABS: BLOOD UREA NITROGEN 25.7 mg/dL (7-18)
[2023-06-01 08:19] LABS: CREATININE 1.4 mg/dL (0.55-1.3); PHOSPHOROUS 2.8 mg/dL (2.5-4.9)
[2023-06-01] MEDS: NIFEdipine E.R 60 MG TABLET PO SCH (09:30)
[2023-06-01] MEDS: BACLOFEN 10 MG TABLET (FP) PO SCH (09:30)
[2023-06-01] MEDS: ASPIRIN COATED 81 MG TABLET.EC PO SCH (09:30)
[2023-06-01] MEDS: CARVEDILOL 25 MG TABLET (FP) PO SCH (09:30)
[2023-06-01 15:16] VITALS: BMI 43.7
[2023-06-02 11:35] LABS: BASO % 0.8 % (0-2.0); EOS % 1.3 % (0-4.5); HEMATOCRIT 33.7 % (35.4-49); HEMOGLOBIN 11.8 GM/dL (11.7-16.9); LYMPH % 23.9 % (8-40); MCH 31.9 pg (25.7-33.7); MEAN CELL VOLUME 91.2 fl (80-96); MEAN PLT VOLUME 10.4 fl (7.5-11.1); MONO % 8.2 % (3.8-10.2); NEUT % 65.8 % (42.8-82.8); PLATELET COUNT 153 10^3/uL (134-434); RDW 14.1 % (11.9-15.9)
[2023-06-02 11:48] LABS: POTASSIUM 4.3 mmol/L (3.5-5.1)
[2023-06-02 11:53] LABS: CALCIUM 8.3 mg/dL (8.5-10.1)
[2023-06-02 11:54] LABS: ALBUMIN 3.2 g/dl (3.4-5.0); BLOOD UREA NITROGEN 27.5 mg/dL (7-18)
[2023-06-02 11:56] LABS: CREATININE 1.4 mg/dL (0.55-1.3)
[2023-06-02 11:57] LABS: BILIRUBIN,TOTAL 0.5 mg/dL (0.2-1); TOT PROT 7.8 g/dl (6.4-8.2)
[2023-06-02] MEDS: LACTATED RINGERS SOLUTION 1,000 ML/1,000 ML INFUS.BAG IV SCH (14:08)
[2023-06-02] MEDS ORDERED: ATORVASTATIN CA 80 MG TABLET (FP) PO SCH (22:00)
[2023-06-03 08:44] VITALS: RESP 18
[2023-06-03 10:39] LABS: POTASSIUM 4.1 mmol/L (3.5-5.1)
[2023-06-03 10:48] LABS: CALCIUM 8.2 mg/dL (8.5-10.1)
[2023-06-03 10:49] LABS: ALBUMIN 3.3 g/dl (3.4-5.0); BLOOD UREA NITROGEN 27.2 mg/dL (7-18)
[2023-06-03 10:52] LABS: CREATININE 1.4 mg/dL (0.55-1.3)
[2023-06-03 10:54] LABS: BILIRUBIN,TOTAL 0.6 mg/dL (0.2-1); TOT PROT 7.9 g/dl (6.4-8.2)
[2023-06-03] MEDS: GABAPENTIN 300 MG CAPSULE PO SCH (13:57)
[2023-06-03 19:56] VITALS: BP 126/72; PULSE 71; TEMP 98.5
== END 2023-06-03 20:50 | disposition home or self-care (01) | DRG 556 ==
LOC: JER 11:10 → JERBED 21:36 → J6S 06-01 14:47 → OBSVTOIN 06-02 13:34
PROVIDERS: ADMIT Internal Medicine; ATTEND Internal Medicine
DX: M79.89 Other specified soft tissue disorders (principal); N17.9 Acute kidney failure, unspecified; E11.42 Type 2 diabetes mellitus with diabetic polyneuropathy; E11.51 Type 2 diabetes mellitus with diabetic peripheral angiopathy without gangrene; I10 Essential (primary) hypertension; E78.5 Hyperlipidemia, unspecified; Z86.718 Personal history of other venous thrombosis and embolism; N40.0 Benign prostatic hyperplasia without lower urinary tract symptoms; M62.838 Other muscle spasm; K59.00 Constipation, unspecified; T46.1X5A Adverse effect of calcium-channel blockers, initial encounter; Z99.3 Dependence on wheelchair
CPT/HCPCS: 36415; 73590-TC-LT-FY; 73610-TC-LT-FY; 73630-TC-LT; 80048; 80053; 82550; 82553; 82962; 83735; 84100; 85025; 85610; 85651; 85730; 86140; 87040; 93005; 93010; 93971-TC; 99285-25; G0378; J0475

== ENCOUNTER 2023-09-15 10:12 | Observation (INO) | payer OTHER ==
[2023-09-15 10:26] VITALS: BMI 33.4
[2023-09-15 13:41] LABS: BASO % 0.8 % (0-2.0); EOS % 0.5 % (0-4.5); HEMATOCRIT 35.9 % (35.4-49); HEMOGLOBIN 12.1 GM/dL (11.7-16.9); LYMPH % 21.1 % (8-40); MCH 30.9 pg (25.7-33.7); MCHC 33.7 g/dl (32.0-35.9); MEAN CELL VOLUME 91.7 fl (80-96); MEAN PLT VOLUME 10.6 fl (7.5-11.1); MONO % 7.9 % (3.8-10.2); NEUT % 69.7 % (42.8-82.8); PLATELET COUNT 129 10^3/uL (134-434); RBC 3.91 M/mm3 (4.00-5.60); RDW 13.2 % (11.9-15.9)
[2023-09-15 13:43] LABS: WHITE BLOOD COUNT 9.3 K/mm3 (4.0-10.0)
[2023-09-15 14:10] LABS: POTASSIUM 4.3 mmol/L (3.5-5.1)
[2023-09-15 14:23] LABS: ALBUMIN 3.4 g/dl (3.4-5.0); BLOOD UREA NITROGEN 31.8 mg/dL (7-18); CALCIUM 8.3 mg/dL (8.5-10.1)
[2023-09-15 14:26] LABS: CREATININE 1.8 mg/dL (0.55-1.3)
[2023-09-15 14:27] LABS: BILIRUBIN,TOTAL 0.6 mg/dL (0.2-1)
[2023-09-15 14:28] LABS: TOT PROT 8.5 g/dl (6.4-8.2)
[2023-09-15 14:29] LABS: N-TERMINAL BNP 64.2 pg/ml (5-450)
[2023-09-15] MEDS ORDERED: ALBUTEROL SO4 HFA INHALER IH PRN (15:20)
[2023-09-15] MEDS ORDERED: PANTOPRAZOLE 40 MG TABLET PO ONE (18:54)
[2023-09-15] MEDS ORDERED: GABAPENTIN 300 MG CAPSULE ONE ×2 (18:55→21:44)
[2023-09-15] MEDS ORDERED: ASPIRIN 81 MG CHEWABLE TABLETS ONE (18:55)
[2023-09-15] MEDS ORDERED: AZTREONAM 1 GM VIAL (RESTRICTED TO ID) ONE (18:55)
[2023-09-15] MEDS ORDERED: BACLOFEN 10 MG TABLET (FP) ONE (18:55)
[2023-09-15] MEDS ORDERED: VANCOMYCIN 1 GRAM (PRE-DOCKED) 1,000 MG/250 ML BAG IVPB ONE (18:56)
[2023-09-15] MEDS: PANTOPRAZOLE 40 MG TABLET PO SCH (19:08)
[2023-09-15] MEDS: ASPIRIN 81 MG CHEWABLE TABLETS PO SCH (19:08)
[2023-09-15] MEDS: GABAPENTIN 300 MG CAPSULE PO SCH (19:08)
[2023-09-15] MEDS: AZTREONAM 1 GM in DEXTROSE 5%-WATER - 50 ML IVPB ONE (19:08)
[2023-09-15] MEDS: BACLOFEN 10 MG TABLET (FP) PO SCH (19:08)
[2023-09-15] MEDS: VANCOMYCIN 1 GM PREMIX - 1 GM/200 ML BAG IVPB ONE (20:26)
[2023-09-15] MEDS: PRAMIPEXOLE DIHYDROCHLORIDE 0.5 MG TABLET PO SCH (21:38)
[2023-09-15] MEDS: INSULIN ASPART SLIDING SCALE (NOVOLOG) 1 VIAL SQ SCH (21:39)
[2023-09-15] MEDS ORDERED: ATORVASTATIN CA 80 MG TABLET (FP) ONE (21:43)
[2023-09-15] MEDS ORDERED: HEPARIN NA (PORCINE) 5,000 UNITS/ML 1ML VIAL ONE (21:44)
[2023-09-15] MEDS ORDERED: CARVEDILOL 25 MG TABLET (FP) ONE (21:44)
[2023-09-15] MEDS: CARVEDILOL 25 MG TABLET (FP) PO SCH (22:22)
[2023-09-15] MEDS: BUDESONIDE/FORMETEROL FUMARATE 160/4.5 mcg INHALER IH SCH (22:22)
[2023-09-15] MEDS: HEPARIN NA (PORCINE) 5,000 UNITS/ML 1ML VIAL SQ SCH (22:22)
[2023-09-15] MEDS: ATORVASTATIN CA 80 MG TABLET (FP) PO SCH (22:22)
[2023-09-15] MEDS: LATANOPROST 0.005% OPHTH SOLN 2.5ML BOTTLE OU SCH (22:23)
[2023-09-16 09:05] LABS: HEMATOCRIT 36.8 % (35.4-49); HEMOGLOBIN 12.4 GM/dL (11.7-16.9); MCH 30.6 pg (25.7-33.7); MCHC 33.7 g/dl (32.0-35.9); MEAN CELL VOLUME 90.6 fl (80-96); MEAN PLT VOLUME 10.4 fl (7.5-11.1); PLATELET COUNT 158 10^3/uL (134-434); RBC 4.06 M/mm3 (4.00-5.60); RDW 13.3 % (11.9-15.9); WHITE BLOOD COUNT 6.1 K/mm3 (4.0-10.0)
[2023-09-16 09:24] LABS: POTASSIUM 4.3 mmol/L (3.5-5.1)
[2023-09-16 09:26] LABS: CALCIUM 8.8 mg/dL (8.5-10.1)
[2023-09-16 09:27] LABS: ALBUMIN 3.1 g/dl (3.4-5.0); BLOOD UREA NITROGEN 27.1 mg/dL (7-18)
[2023-09-16 09:30] LABS: CREATININE 1.6 mg/dL (0.55-1.3)
[2023-09-16 09:31] LABS: TOT PROT 7.9 g/dl (6.4-8.2)
[2023-09-16 09:32] LABS: BILIRUBIN,TOTAL 0.7 mg/dL (0.2-1)
[2023-09-16] MEDS: VANCOMYCIN PREMIX 1.5 GM 1,500 MG/300 ML BAG IVPB ONE (10:19)
[2023-09-16] MEDS: SODIUM CHLORIDE 0.9% 500 ML INFUS.BAG IV ONE (10:22)
[2023-09-17] MEDS: VANCOMYCIN PREMIX 1.5 GM 1,500 MG/300 ML BAG IVPB SCH (11:13)
[2023-09-17 16:56] LABS: PH,URINE 5.5 (5.0-8.0); URINE APPEARANCE CLEAR; URINE BILIRUBIN NEGATIVE (NEGATIVE); URINE COLOR YELLOW; URINE GLUCOSE (UA) NEGATIVE (NEGATIVE); URINE KETONE NEGATIVE (NEGATIVE); URINE LEUK ESTERASE NEGATIVE (NEGATIVE); URINE NITRITE NEGATIVE (NEGATIVE); URINE PROTEIN NEGATIVE (NEGATIVE)
[2023-09-17] MEDS: VANCOMYCIN/WATER FOR INJ (PEG) 1,000 MG/200 ML BAG IVPB SCH (22:31)
[2023-09-18 09:47] LABS: BASO % 0.3 % (0-2.0); EOS % 3.8 % (0-4.5); HEMATOCRIT 34.8 % (35.4-49); LYMPH % 16.5 % (8-40); MCHC 34.5 g/dl (32.0-35.9); MEAN CELL VOLUME 89.8 fl (80-96); MEAN PLT VOLUME 10.8 fl (7.5-11.1); NEUT % 72.4 % (42.8-82.8); PLATELET COUNT 158 10^3/uL (134-434); RBC 3.87 M/mm3 (4.00-5.60); RDW 13.3 % (11.9-15.9); WHITE BLOOD COUNT 4.2 K/mm3 (4.0-10.0)
[2023-09-18 10:38] LABS: ALBUMIN 2.9 g/dl (3.4-5.0); BILIRUBIN,TOTAL 0.3 mg/dL (0.2-1); BLOOD UREA NITROGEN 26.2 mg/dL (7-18); CREATININE 1.5 mg/dL (0.55-1.3); POTASSIUM 4.2 mmol/L (3.5-5.1); TOT PROT 7.6 g/dl (6.4-8.2)
[2023-09-19] MEDS: methylPREDNISolone NA SUCC 40 MG/1 ML VIAL IVPUSH ONE (13:18)
[2023-09-19 18:46] VITALS: RESP 18
[2023-09-20 11:34] VITALS: BP 133/70; PULSE 72; TEMP 98.5
[2023-09-20 18:07] LABS: FREE KAPPA,SERUM 105.4 mg/L (3.3-19.4)
== END 2023-09-20 13:30 | disposition home or self-care (01) ==
LOC: JER 10:12 → JERBED 12:45 → J5S 09-16 02:05
PROVIDERS: ADMIT Internal Medicine; ATTEND Internal Medicine
PROC: 3E03329 Introduction of Other Anti-infective into Peripheral Vein, Percutaneous Approach (ICD-10-PCS; principal; 2023-09-15)
PROC: 3E033GC Introduction of Other Therapeutic Substance into Peripheral Vein, Percutaneous Approach (ICD-10-PCS; 2023-09-15)
PROC: 3E033NZ Introduction of Analgesics, Hypnotics, Sedatives into Peripheral Vein, Percutaneous Approach (ICD-10-PCS; 2023-09-15)
PROC: 3E013VG Introduction of Insulin into Subcutaneous Tissue, Percutaneous Approach (ICD-10-PCS; 2023-09-15)
PROC: 3E013GC Introduction of Other Therapeutic Substance into Subcutaneous Tissue, Percutaneous Approach (ICD-10-PCS; 2023-09-15)
PROC: 3E03329 Introduction of Other Anti-infective into Peripheral Vein, Percutaneous Approach (ICD-10-PCS; 2023-09-15)
PROC: 3E0337Z Introduction of Electrolytic and Water Balance Substance into Peripheral Vein, Percutaneous Approach (ICD-10-PCS; 2023-09-15)
DX: L03.116 Cellulitis of left lower limb (principal); N17.9 Acute kidney failure, unspecified; R60.0 Localized edema; D64.9 Anemia, unspecified; E11.22 Type 2 diabetes mellitus with diabetic chronic kidney disease; I12.9 Hypertensive chronic kidney disease with stage 1 through stage 4 chronic kidney disease, or unspecified chronic kidney disease; N18.9 Chronic kidney disease, unspecified; Z79.4 Long term (current) use of insulin; I73.9 Peripheral vascular disease, unspecified; E78.5 Hyperlipidemia, unspecified; G62.89 Other specified polyneuropathies; N40.0 Benign prostatic hyperplasia without lower urinary tract symptoms; M19.90 Unspecified osteoarthritis, unspecified site; Z89.422 Acquired absence of other left toe(s); Z88.0 Allergy status to penicillin; Z86.718 Personal history of other venous thrombosis and embolism; I25.10 Atherosclerotic heart disease of native coronary artery without angina pectoris; Z96.641 Presence of right artificial hip joint
CPT/HCPCS: 36415; 71045-TC-FY; 76775-TC; 80053; 80061; 81003; 82962; 83036; 83605; 83880; 83883; 84443; 84484; 85025; 85027; 86140; 87040; 93005; 93010; 93308; 93971-TC; 96367; 96372; 96375; 97116-GP; 97161-GP; 99285-25; G0378; G0480; J0475; J1644

== ENCOUNTER 2023-09-25 14:17 | Emergency (ER) | payer OTHER ==
[2023-09-25 14:29] VITALS: BP 140/75; PULSE 85; RESP 18; TEMP 98.7; BMI 33.4
[2023-09-25] MEDS: ACETAMINOPHEN 1000 MG/100 ML BAG IVPB ONE (15:28)
[2023-09-25] MEDS ORDERED: ACETAMINOPHEN INJECTION 100 ML IVPB ONE (15:30)
[2023-09-25 15:45] LABS: BASO % 0.9 % (0-2.0); EOS % 1.6 % (0-4.5); HEMATOCRIT 34.1 % (35.4-49); HEMOGLOBIN 11.5 GM/dL (11.7-16.9); LYMPH % 17.8 % (8-40); MCH 30.9 pg (25.7-33.7); MCHC 33.9 g/dl (32.0-35.9); MEAN CELL VOLUME 91.2 fl (80-96); MEAN PLT VOLUME 10.5 fl (7.5-11.1); NEUT % 72.7 % (42.8-82.8); PLATELET COUNT 194 10^3/uL (134-434); RBC 3.74 M/mm3 (4.00-5.60); RDW 14.1 % (11.9-15.9); WHITE BLOOD COUNT 6.1 K/mm3 (4.0-10.0)
[2023-09-25 15:53] LABS: INR 1.13 (0.83-1.09); PROTHROMBIN TIME (PATIENT) 12.7 SEC (9.7-13.0)
[2023-09-25 15:56] LABS: ACTIVATED PTT 37.2 SECONDS (25.2-36.5)
[2023-09-25 16:13] LABS: POTASSIUM 4.5 mmol/L (3.5-5.1)
[2023-09-25 16:16] LABS: ALBUMIN 3.2 g/dl (3.4-5.0); BLOOD UREA NITROGEN 25.9 mg/dL (7-18); CALCIUM 8.5 mg/dL (8.5-10.1)
[2023-09-25 16:19] LABS: CREATININE 1.5 mg/dL (0.55-1.3)
[2023-09-25 16:21] LABS: BILIRUBIN,TOTAL 0.3 mg/dL (0.2-1)
[2023-09-25 19:08] LABS: EPI CELLS 3 /uL (0-25.1); HYALINE CASTS 0 /uL (0-3.1); PH,URINE 5.5 (5.0-8.0); URINE APPEARANCE CLEAR; URINE BACTERIA 8 /uL (0-1359); URINE BILIRUBIN NEGATIVE (NEGATIVE); URINE COLOR YELLOW; URINE GLUCOSE (UA) NEGATIVE (NEGATIVE); URINE KETONE NEGATIVE (NEGATIVE); URINE LEUK ESTERASE TRACE (NEGATIVE); URINE NITRITE NEGATIVE (NEGATIVE); URINE PROTEIN NEGATIVE (NEGATIVE); URINE RBC 15 /uL (0-23.9); URINE UROBILINOGEN 0.2 mg/dL (0.2-1.0); URINE WBC 17 /uL (0-25.8)
== END 2023-09-25 20:49 | disposition home or self-care (01) ==
LOC: JER 14:17
PROC: 3E033NZ Introduction of Analgesics, Hypnotics, Sedatives into Peripheral Vein, Percutaneous Approach (ICD-10-PCS; principal; 2023-09-25)
DX: R10.11 Right upper quadrant pain (principal); R14.0 Abdominal distension (gaseous)
CPT/HCPCS: 36415; 71045-TC-FY; 74176-TC; 76775-TC; 80053; 81003; 82962; 83605; 83690; 83735; 84484; 85025; 85610; 85730; 87086; 93005; 93010; 99285-25; J0131

== ENCOUNTER 2023-10-01 15:10 | Emergency (ER) | payer OTHER ==
[2023-10-01 15:18] VITALS: BP 137/85; PULSE 81; RESP 18; TEMP 98.6; BMI 33.4
[2023-10-01] MEDS ORDERED: ACETAMINOPHEN 500 MG TABLET (FP) ONE (16:43)
[2023-10-01] MEDS ORDERED: valACYclovir HCL 500 MG TABLET (FP) ONE (16:44)
[2023-10-01] MEDS: ACETAMINOPHEN 500 MG TABLET (FP) PO ONE (16:49)
[2023-10-01] MEDS: valACYclovir HCL 500 MG TABLET (FP) PO ONE (16:50)
== END 2023-10-01 17:27 | disposition home or self-care (01) ==
LOC: JER 15:10
DX: B02.9 Zoster without complications (principal); R21 Rash and other nonspecific skin eruption; R10.12 Left upper quadrant pain
CPT/HCPCS: 99283-25

== ENCOUNTER 2023-10-12 12:33 | Observation (INO) | payer OTHER ==
[2023-10-12] MEDS: SODIUM CHLORIDE 0.9% 500 ML INFUS.BAG IV ONE (14:43)
[2023-10-12 14:46] LABS: EOS % 0.8 % (0-4.5); HEMATOCRIT 34.8 % (35.4-49); HEMOGLOBIN 11.4 GM/dL (11.7-16.9); LYMPH % 20.6 % (8-40); MCHC 32.7 g/dl (32.0-35.9); MEAN CELL VOLUME 91.7 fl (80-96); MEAN PLT VOLUME 9.5 fl (7.5-11.1); MONO % 10.2 % (3.8-10.2); NEUT % 67.4 % (42.8-82.8); PLATELET COUNT 218 10^3/uL (134-434); RDW 13.6 % (11.9-15.9); WHITE BLOOD COUNT 8.9 K/mm3 (4.0-10.0)
[2023-10-12 15:04] LABS: POTASSIUM 4.4 mmol/L (3.5-5.1)
[2023-10-12 15:05] LABS: CALCIUM 8.6 mg/dL (8.5-10.1)
[2023-10-12 15:06] LABS: ALBUMIN 3.2 g/dl (3.4-5.0); BLOOD UREA NITROGEN 37.2 mg/dL (7-18)
[2023-10-12 15:09] LABS: CREATININE 1.8 mg/dL (0.55-1.3)
[2023-10-12 15:12] LABS: BILIRUBIN,TOTAL 0.5 mg/dL (0.2-1); TOT PROT 8.2 g/dl (6.4-8.2)
[2023-10-12 22:09] VITALS: BMI 33.8
[2023-10-13] MEDS: VANCOMYCIN PREMIX 1.5 GM 1,500 MG/300 ML BAG IVPB ONE ×2 (00:05→14:26)
[2023-10-13] MEDS ORDERED: ALBUTEROL SO4 HFA INHALER IH PRN (05:18)
[2023-10-13] MEDS: INSULIN ASPART SLIDING SCALE (NOVOLOG) 1 VIAL SQ SCH (06:56)
[2023-10-13 09:38] LABS: HEMATOCRIT 33.5 % (35.4-49); HEMOGLOBIN 11.5 GM/dL (11.7-16.9); MCH 30.7 pg (25.7-33.7); MCHC 34.3 g/dl (32.0-35.9); MEAN CELL VOLUME 89.5 fl (80-96); MEAN PLT VOLUME 9.6 fl (7.5-11.1); PLATELET COUNT 199 10^3/uL (134-434); RBC 3.74 M/mm3 (4.00-5.60); RDW 13.7 % (11.9-15.9); WHITE BLOOD COUNT 6.9 K/mm3 (4.0-10.0)
[2023-10-13 10:04] LABS: POTASSIUM 4.3 mmol/L (3.5-5.1)
[2023-10-13] MEDS: ENOXAPARIN NA (PORCINE) 40 MG/0.4 ML DISP.SYRIN SQ SCH (10:05)
[2023-10-13] MEDS: BACLOFEN 10 MG TABLET (FP) PO SCH (10:05)
[2023-10-13] MEDS: PANTOPRAZOLE 40 MG TABLET PO SCH (10:05)
[2023-10-13] MEDS: CARVEDILOL 25 MG TABLET (FP) PO SCH (10:05)
[2023-10-13] MEDS: PRAMIPEXOLE DIHYDROCHLORIDE 0.5 MG TABLET PO SCH (10:05)
[2023-10-13 10:14] LABS: BILIRUBIN,TOTAL 0.6 mg/dL (0.2-1); BLOOD UREA NITROGEN 28.6 mg/dL (7-18); CALCIUM 8.6 mg/dL (8.5-10.1); PHOSPHOROUS 2.7 mg/dL (2.5-4.9); TOT PROT 7.8 g/dl (6.4-8.2)
[2023-10-13 10:15] LABS: MAGNESIUM 1.8 mg/dL (1.8-2.4)
[2023-10-13 10:16] LABS: CREATININE 1.3 mg/dL (0.55-1.3)
[2023-10-13] MEDS: BUDESONIDE/FORMETEROL FUMARATE 160/4.5 mcg INHALER IH SCH (10:19)
[2023-10-13 10:22] LABS: ERYTHROCYTE SEDIMENTATION RATE 54 mm/hr (0-20)
[2023-10-13] MEDS: GABAPENTIN 300 MG CAPSULE PO SCH (13:49)
[2023-10-13] MEDS: valACYclovir HCL 500 MG TABLET (FP) PO SCH (13:49)
[2023-10-13 14:12] VITALS: RESP 18
[2023-10-13] MEDS: NYSTATIN POWDER 100,000 UNITS/GM - 15 GM TOPICAL POWDER TP SCH (15:49)
[2023-10-13] MEDS: PATIENT'S OWN MEDICATION (NON-FORMULARY) (Gabapentin [Gralise] 600 MG Tab.Er.24h) PO SCH (17:15)
[2023-10-13] MEDS: ATORVASTATIN CA 80 MG TABLET (FP) PO SCH (21:24)
[2023-10-13] MEDS: LATANOPROST 0.005% OPHTH SOLN 2.5ML BOTTLE OU SCH (21:25)
[2023-10-14 08:09] LABS: HEMATOCRIT 33.4 % (35.4-49); HEMOGLOBIN 11.3 GM/dL (11.7-16.9); MCH 30.4 pg (25.7-33.7); MCHC 33.8 g/dl (32.0-35.9); MEAN CELL VOLUME 89.8 fl (80-96); MEAN PLT VOLUME 9.9 fl (7.5-11.1); PLATELET COUNT 184 10^3/uL (134-434); RBC 3.72 M/mm3 (4.00-5.60); RDW 13.5 % (11.9-15.9); WHITE BLOOD COUNT 5.7 K/mm3 (4.0-10.0)
[2023-10-14] MEDS ORDERED: INSULIN ASPART SLIDING SCALE (NOVOLOG) 1 VIAL SQ ONE (08:09)
[2023-10-14 08:25] LABS: POTASSIUM 4.1 mmol/L (3.5-5.1)
[2023-10-14 08:32] LABS: CREATININE 1.4 mg/dL (0.55-1.3)
[2023-10-14 08:33] LABS: CALCIUM 8.5 mg/dL (8.5-10.1)
[2023-10-14 08:34] LABS: BILIRUBIN,TOTAL 0.5 mg/dL (0.2-1); TOT PROT 7.7 g/dl (6.4-8.2)
[2023-10-14] MEDS: DOXYCYCLINE INJECTION 100 MG in DEXTROSE 5%-WATER 100 ML IVPB SCH (09:57)
[2023-10-14] MEDS: NYSTATIN POWDER 100,000 UNITS/GM - 30 GM TOPICAL POWDER TP SCH (10:36)
[2023-10-16 15:21] VITALS: BP 129/80; PULSE 73; TEMP 97.7
[2023-10-16] MEDS ORDERED: AMOXICILLIN ORAL SUSPENSION - 250 MG/5 ML PO SCH (22:00)
[2023-10-17] MEDS ORDERED: levoFLOXacin 750 MG TABLET PO SCH (06:00)
== END 2023-10-16 17:55 ==
LOC: JER 12:33 → UNDOADMOB 17:51 → JERBED 17:51 → J7W 21:22 → OBSVTOIN 21:43 → INTOOBSV 21:43 → J6S 10-13 00:11 → J7W 10-13 00:11 → J6S 10-13 11:22 → JERBED 10-13 11:22
PROVIDERS: ADMIT Internal Medicine; ATTEND Internal Medicine
PROC: 3E03329 Introduction of Other Anti-infective into Peripheral Vein, Percutaneous Approach (ICD-10-PCS; principal; 2023-10-13)
PROC: 3E023GC Introduction of Other Therapeutic Substance into Muscle, Percutaneous Approach (ICD-10-PCS; 2023-10-13)
PROC: 3E013VG Introduction of Insulin into Subcutaneous Tissue, Percutaneous Approach (ICD-10-PCS; 2023-10-13)
PROC: 3E0337Z Introduction of Electrolytic and Water Balance Substance into Peripheral Vein, Percutaneous Approach (ICD-10-PCS; 2023-10-13)
DX: E11.621 Type 2 diabetes mellitus with foot ulcer (principal); L97.529 Non-pressure chronic ulcer of other part of left foot with unspecified severity; I10 Essential (primary) hypertension; E78.5 Hyperlipidemia, unspecified; R19.7 Diarrhea, unspecified; R26.2 Difficulty in walking, not elsewhere classified; R53.1 Weakness; I73.9 Peripheral vascular disease, unspecified; I77.1 Stricture of artery; M19.90 Unspecified osteoarthritis, unspecified site; Z96.698 Presence of other orthopedic joint implants; Z87.891 Personal history of nicotine dependence
CPT/HCPCS: 0241U-QW; 36415; 73630-TC-LT; 74176-TC; 80053; 82962; 83735; 84100; 85025; 85027; 85651; 86140; 87070; 87081; 87186; 87205; 93005; 93010; 96365; 96367; 96372; 97116-GP; 97162-GP; 99285-25; G0378; G0480; J0475